=== PATIENT | female | born 1945 | race Hispanic/Latino ===

== ENCOUNTER 2017-08-27 16:15 | Emergency (ER) | payer MEDICARE, OTHER ==
--- NOTE | 2017-08-27 17:02 | C.PDOC ---
History Of Present Illness 71 y/o female presents to emergency department, accompanied by daughter, status post fall just prior to arrival. Patient reportedly missed 2 steps while walking down stairs, falling onto her right side, and striking her head. Patient c/o right facial pain with hematoma, right shoulder pain, rib pain, and right knee pain. Daughter and patient deny LOC, chest pain, SOB, new weakness, new numbness, nausea, vomiting, or other associated symptoms. - HPI Time Seen by Provider: 08/27/17 16:27 Chief Complaint (Nursing): Trauma History Per: Patient, Family (daughter) History/Exam Limitations: no limitations Injury Occurred (Timing): Just Before Arrival Location Of Injury: Right: Face, Knee, Leg, Shoulder Recent travel outside of the [place]: No Past Medical History Reviewed: Historical Data, Nursing Documentation, Vital Signs Vital Signs: Last Vital Signs Temp 97.9 F 08/27/17 19:15 Pulse 58 L 08/27/17 19:15 Resp 18 08/27/17 19:15 BP 131/76 08/27/17 19:15 Pulse Ox 99 08/27/17 19:20 - Medical History PMH: HTN Other PMH: Kidney Transplant Family History: States: Unknown Family Hx - Social History Hx Alcohol Use: No Hx Substance Use: No - Immunization History Hx Tetanus Toxoid Vaccination: No Hx Influenza Vaccination: No Hx Pneumococcal Vaccination: No Review Of Systems Except As Marked, All Systems Reviewed And Found Negative. Constitutional: Negative for: Fever, Chills ENT: Positive for: Other (right sided facial pain) Cardiovascular: Negative for: Chest Pain, Palpitations Respiratory: Negative for: Cough, Shortness of Breath, Wheezing Gastrointestinal: Negative for: Nausea, Vomiting, Abdominal Pain Musculoskeletal: Positive for: Shoulder Pain (R), Leg Pain (R), Other (Rib Pain , R) Skin: Negative for: Rash Neurological: Negative for: Weakness, Numbness, Dizziness Physical Exam - Physical Exam Appears: Non-toxic, Other (in moderate painful distress) Skin: Warm, Dry, Other ((+) 1cm laceration above the right eyebrow) Head: Normacephalic, Tenderness, Other (Right orbital ecchymosis and swelling) Eye(s): bilateral: PERRL, EOMI Ear(s): Bilateral: Normal Nose: Normal, No Epistaxis, No Deformity Oral Mucosa: Moist Tongue: Normal Appearing Lips: Normal Appearing Teeth: Normal Dentition, Dentures Throat: No Erythema, No Exudate Neck: Paracervical Tenderness, No Step Off Deformity, Supple Chest: Symmetrical, No Deformity, Tenderness (bilateral anterior 5th and 6th rib tenderness) Cardiovascular: Rhythm Regular, No Friction Rub, No Murmur Respiratory: Normal Breath Sounds, No Rales, No Rhonchi, No Wheezing Gastrointestinal/Abdominal: Bowel Sounds (active), Soft, No Tenderness, No Distention, No Guarding, No Rebound Back: Normal Inspection, No Vertebral Tenderness, No Paraspinal Tenderness Extremity: Capillary Refill (< 2 sec. ), No Deformity, Other (large area of ecchymosis, swelling, and tenderness to right medial knee) Extremity: Bilateral: Pelvis-Stable Pulses: Left Radial: Normal, Right Radial: Normal, Left Dorsalis Pedis: Normal, Right Dorsalis Pedis: Normal Neurological/Psych: Oriented x3, Normal Speech, Normal Cognition, Normal Motor, Normal Sensation Gait: Steady ED Course And Treatment ECG: Interpreted By Me, Viewed By Me ECG Rhythm: Sinus Rhythm, R BBB Rate From EC O2 Sat by Pulse Oximetry: 99 (RA) Pulse Ox Interpretation: Normal - CT Scan/US CT Head Other Rad Studies (CT/US): Read By Radiologist, Radiology Report Reviewed CT/US Interpretation: FINDINGS: HEMORRHAGE: No intracranial hemorrhage. BRAIN : No mass effect or edema. Atrophy and chronic microvascular white matter ischemic changes are noted. VENTRICLES: Unremarkable. No hydrocephalus. CALVARIUM: Unremarkable. PARANASAL SINUSES: Unremarkable as visualized. No significant inflammatory changes. MASTOID AIR CELLS: Unremarkable as visualized. No inflammatory changes. OTHER FINDINGS: None. IMPRESSION: No evidence of acute intracranial hemorrhage intracranial collection mass effect or midline shift. Atrophy and chronic microvascular white matter ischemic changes noted. No evidence of skull fracture. CT Maxillofacial Other Rad Studies (CT/US): Read By Radiologist, Radiology Report Reviewed CT/US Interpretation: FINDINGS: NASAL BONES: Unremarkable. ORBITS: Right periorbital soft tissue swelling and subcutaneous stranding seen. PARANASAL SINUSES/ MASTOIDS: Clear. MAXILLA: Unremarkable. MANDIBLE/ TEMPOROMANDIBULAR JOINTS: Unremarkable. SKULL BASE: Unremarkable. TEMPORAL BONES: Middle ears and mastoid grossly unremarkable. OTHER FINDINGS: There is round high density structure at the skin above the right hilum in the right frontal scalp may represent foreign body seen on image 111 series 3. IMPRESSION : No evidence of acute fracture. Moderate right periorbital soft tissue swelling. 2 millimeter high density structure noted at the skin in the right frontal scalp above the right orbit may represent foreign body best seen on image [address] Cervical Spine Other Rad Studies (CT/US): Read By Radiologist, Radiology Report Reviewed CT/US Interpretation: FINDINGS: VERTEBRAE: There is mild compression deformity of C3. There is complete fusion of the C3 and C4. Mild kyphosis seen at the upper cervical spine. There is mild anterior spondylolisthesis of C2 relative to C3. There is mild approximately 3 millimeter anterior spondylolisthesis of C7 relative to T1. There is a straightening of the cervical spine and mild reversal of the normal lordosis. Diffuse osteopenia is also noted. DISCS/SPINAL CANAL/NEURAL FORAMINA: Advanced degenerative disc changes. Multilevel severe narrowing of the intervertebral disc space noted at the cervical spine. PARASPINAL SOFT TISSUES: There are bilateral retropharyngeal internal carotid arteries noted. OTHER FINDINGS: None. IMPRESSION: No definite evidence of acute fracture at the cervical spine. Compression deformity and fusion of C3 and C4 noted. Anterior spondylolisthesis of C2 relative to C3. Reversal of the normal lordosis and mild kyphosis seen at the upper cervical spine of uncertain etiology. Advanced degenerative disc changes. If clinically warranted further assessment by MRI may be obtained. Progress Note: CT cervical spine, CT Head, and CT maxillofacial scans ordered. Right knee and right shoulder x-rays ordered and reviewed. EKG ordered. Treated with Tylenol 650mg PO. On re-evaluation, patient is resting and notes she is still in pain. Patient was given Tramadol. Laceration - Laceration Repair Above right eyebrow Wound Length (In cm): 1 cm Description Of Wound: Linear Wound Cleansed With: Betadine, Sterile Saline Wound Examination: Irrigated With Saline, No FB With Wound Exploration, No Tendon Injury With Wound Exploration Wound Debridement/Revision: Wound Debrided, Wound Margins Revised Wound Closure: Steri Strips (2), Skin Glue Suture Technique And Material Used: Running Wound Complexity: Simple Medical Decision Making Medical Decision Making: On re-eval, the patient reports improvement of symptoms. Lungs are CTA, heart is RRR. Abdomen is soft, non-tender and the patient is tolerating PO well. Patient has walker at home which she will use. Follow up with the medical doctor /clinic within 1-2 days. Return if worsened. Disposition - Disposition Referrals: Benedict Prather MD [Staff Provider] - Disposition: HOME/ ROUTINE Disposition Time: 19:14 Condition: FAIR Additional Instructions: Follow up with the medical doctor/clinic within 1-2 days without fail. Return if worsened. Prescriptions: Acetaminophen [Tylenol] 325 mg PO Q6 PRN #30 tab PRN Reason: Pain, Moderate (4-7) traMADol [Ultram] 50 mg PO Q6 PRN #20 tab PRN Reason: Pain Instructions: Cervical Strain (DC), Head Injury (ED), Knee Pain (ED), Rib Contusion (ED) Forms: [employer] (Azeri) - Clinical Impression Clinical Impression: Head injury, Rib contusion, Cervical strain, Knee contusion, Laceration of eyebrow - PA / [employer] / Resident Statement MD/DO has reviewed & agrees with the documentation as recorded. - Scribe Statement The provider has reviewed the documentation as recorded by the Ramon Corey All medical record entries made by the Ramon were at my direction and personally dictated by me. I have reviewed the chart and agree that the record accurately reflects my personal performance of the history, physical exam, medical decision making, and the department course for this patient. I have also personally directed, reviewed, and agree with the discharge instructions and disposition.
--- NOTE | 2017-08-27 18:10 | CT ---
PROCEDURE: CT HEAD WITHOUT CONTRAST. HISTORY: fall , head injury COMPARISON: Comparison is made to the previous study dated 10/11/2012. TECHNIQUE: Axial computed tomography images were obtained through the head/brain without intravenous contrast. Radiation dose: Total exam DLP = 863.77 mGy-cm. This CT exam was performed using one or more of the following dose reduction techniques: Automated exposure control, adjustment of the mA and/or kV according to patient size, and/or use of iterative reconstruction technique. FINDINGS: HEMORRHAGE: No intracranial hemorrhage. BRAIN: No mass effect or edema. Atrophy and chronic microvascular white matter ischemic changes are noted. VENTRICLES: Unremarkable. No hydrocephalus. CALVARIUM: Unremarkable. PARANASAL SINUSES: Unremarkable as visualized. No significant inflammatory changes. MASTOID AIR CELLS: Unremarkable as visualized. No inflammatory changes. OTHER FINDINGS: None. IMPRESSION: No evidence of acute intracranial hemorrhage intracranial collection mass effect or midline shift. Atrophy and chronic microvascular white matter ischemic changes noted. No evidence of skull fracture.
--- NOTE | 2017-08-27 18:42 | CT ---
PROCEDURE: CT MAXILLOFACIAL BONES WITHOUT CONTRAST HISTORY: fall, swelling to R eye COMPARISON: None TECHNIQUE: Contiguous axial CT images of the maxillofacial bones were obtained. Coronal and sagittal reformats were generated. Radiation dose: Total exam DLP = 720.78 mGy-cm. This CT exam was performed using one or more of the following dose reduction techniques: Automated exposure control, adjustment of the mA and/or kV according to patient size, and/or use of iterative reconstruction technique. FINDINGS: NASAL BONES: Unremarkable. ORBITS: Right periorbital soft tissue swelling and subcutaneous stranding seen. PARANASAL SINUSES/ MASTOIDS: Clear. MAXILLA: Unremarkable. MANDIBLE/ TEMPOROMANDIBULAR JOINTS: Unremarkable. SKULL BASE: Unremarkable. TEMPORAL BONES: Middle ears and mastoid grossly unremarkable. OTHER FINDINGS: There is round high density structure at the skin above the right hilum in the right frontal scalp may represent foreign body seen on image 111 series 3 IMPRESSION: No evidence of acute fracture. Moderate right periorbital soft tissue swelling. 2 millimeter high density structure noted at the skin in the right frontal scalp above the right orbit may represent foreign body best seen on image 111 series 3.
--- NOTE | 2017-08-27 18:53 | CT ---
PROCEDURE: CT Cervical Spine without contrast HISTORY: <neck injury> COMPARISON: None available. TECHNIQUE: Axial computed tomography images were obtained of the cervical spine without the use of intravenous contrast. Coronal and sagittal reformatted images were created and reviewed. Radiation dose: Total exam DLP = 577.35 mGy-cm. This CT exam was performed using one or more of the following dose reduction techniques: Automated exposure control, adjustment of the mA and/or kV according to patient size, and/or use of iterative reconstruction technique. FINDINGS: VERTEBRAE: There is mild compression deformity of C3. There is complete fusion of the C3 and C4. Mild kyphosis seen at the upper cervical spine. There is mild anterior spondylolisthesis of C2 relative to C3. There is mild approximately 3 millimeter anterior spondylolisthesis of C7 relative to T1. There is a straightening of the cervical spine and mild reversal of the normal lordosis. Diffuse osteopenia is also noted. DISCS/SPINAL CANAL/NEURAL FORAMINA: Advanced degenerative disc changes. Multilevel severe narrowing of the intervertebral disc space noted at the cervical spine. PARASPINAL SOFT TISSUES: There are bilateral retropharyngeal internal carotid arteries noted. OTHER FINDINGS: None. IMPRESSION: No definite evidence of acute fracture at the cervical spine. Compression deformity and fusion of C3 and C4 noted. Anterior spondylolisthesis of C2 relative to C3. Reversal of the normal lordosis and mild kyphosis seen at the upper cervical spine of uncertain etiology. Advanced degenerative disc changes. If clinically warranted further assessment by MRI may be obtained.
[2017-08-27 19:16] VITALS: BP 131/76; PULSE 58; RESP 18; TEMP 97.9
[2017-08-27 19:18] VITALS: O2SAT 99
--- NOTE | 2017-08-28 08:27 | RAD ---
PROCEDURE: Radiographs of the Right Shoulder HISTORY: shoulder pain, injury COMPARISON: No prior. FINDINGS: BONES: No fracture. High-riding humeral head- consistent chronic rotator cuff pathology noted. Humeral head subchondral sclerosis JOINTS: . Glenohumeral and acromioclavicular osteoarthritis. SOFT TISSUES: Normal. OTHER FINDINGS: None. IMPRESSION: No fracture or dislocation appreciated. High-riding humeral head consistent chronic rotator cuff pathology. Sclerotic and hypertrophic arthrosis -right shoulder If clinical symptoms persist, consider MRI or CT of the right shoulder
--- NOTE | 2017-08-28 08:47 | RAD ---
PROCEDURE: Right Knee Radiographs. HISTORY: knee injury, fall, swelling COMPARISON: None. FINDINGS: BONES: No fracture or dislocation. Medial femoral tibial and patellofemoral joint space narrowing. Medial tibial knee joint line spurring and medial tibial plateau subchondral sclerosis. JOINTS: osteoarthritis. JOINT EFFUSION: Mild moderate present OTHER FINDINGS: Probable ossific debris ring lateral femoral condyle. Arterial vascular calcifications. Tear subcutaneous calcifications possible phleboliths. Anterior subcutaneous edema. Medial and lateral subcutaneous edema. IMPRESSION: No fracture or dislocation. Prepatellar subcutaneous edema Osteoarthrosis. Probable degenerative ossific debris. For patellar joint effusion Atherosclerotic vascular disease
--- NOTE | 2017-08-28 09:43 | RAD ---
HISTORY: chest injury COMPARISON: 12/27/2012 FINDINGS: LUNGS: Mild diffuse increased interstitial lung markings. Nodular densities in the right hilar and infrahilar region as well as within the left hilar region may represent prominent vessels on end. Additional considerations may include small granulomas and or nodules. These appear similar in appearance to the prior study. PLEURA: No significant pleural effusion identified, no pneumothorax apparent. CARDIOVASCULAR: Normal. OSSEOUS STRUCTURES: Postsurgical changes in the spine. Prominent degenerative changes in the shoulders. VISUALIZED UPPER ABDOMEN: Normal. OTHER FINDINGS: Left axillary stent in place. IMPRESSION: Mild diffuse increased interstitial lung markings. Nodular densities in the right hilar and infrahilar region as well as within the left hilar region may represent prominent vessels on end. Additional considerations may include small granulomas and or nodules. These appear similar in appearance to the prior study.
--- NOTE | 2017-08-29 11:56 | CARD ---
APPROVED REPORT EKG Measurement Heart [id number] <Conclusion> Sinus rhythm with premature atrial complexes Right bundle branch block Abnormal ECG
== END 2017-08-27 19:59 | disposition home or self-care (01) ==
LOC: C.ER 16:15
DX: S01.111A Laceration without foreign body of right eyelid and periocular area, initial encounter (principal); S16.1XXA Strain of muscle, fascia and tendon at neck level, initial encounter; S20.211A Contusion of right front wall of thorax, initial encounter; S20.212A Contusion of left front wall of thorax, initial encounter; S80.01XA Contusion of right knee, initial encounter; W10.9XXA Fall (on) (from) unspecified stairs and steps, initial encounter

== ENCOUNTER 2017-08-30 06:40 | Inpatient (IN) | payer MEDICARE, OTHER ==
[2017-08-30 06:46] VITALS: BMI 30.2
--- NOTE | 2017-08-30 07:46 | C.PDOC ---
History Of Present Illness 71 Y/O FEMALE, S/P FALL OUT OF HER BED THIS MORNING, BROUGHT TO ER BY DAUGHTER. PT WAS ASSISTED BY FAMILY DOWN A FLIGHT OF STAIRS AND INTO HER BED AROUND 02:00 THIS MORNING. DAUGHTER STATES, SHE FOUND THE PT LYING FACE DOWN, UNCONSCIOUS, ON THE FLOOR WITH HER RIGHT ARM WAS EXTENDED BACKWARDS AROUND 04:30 TODAY. DAUGHTER NOTES PT WAS DIFFICULT TO AROUSE BUT WAS RESPONSIVE AFTER SHAKING HER. ON ARRIVAL, PT STATES SHE GOT OUT OF BED ON HER OWN TO TRY TO GO TO THE BATHROOM PRIOR TO FALL. DAUGHTER STATES PT AT BASELINE, STATUS POST FALL ON 08/27. DAUGHTER REPORTS CURRENT INJURIES WERE FROM PRIOR FALL AND DAUGHTER DENIES SEEING ANY NEW INJURIES. PT WAS AMBULATORY AT HOME PRIOR TO ARRIVAL. PT NORMALLY USES A CANE. ON ARRIVAL, PT'S MAINLY C/O DIFFUSE CHEST PAIN FROM PRIOR FALL AND C/O RIGHT SHOULDER PAIN FROM FALL THIS MORNING. DAUGHTER REPORTS SHE HAS BEEN ACTIVE IN THE HOUSE SINCE PRIOR ER VISIT. DENIES FEVER, CHILLS, NAUSEA , VOMITING. - HPI Time Seen by Provider: 08/30/17 07:32 Chief Complaint (Nursing): Chest Pain History Per: Patient History/Exam Limitations: no limitations Injury Occurred (Timing): Hours Ago: (5) Location Of Injury: Right: Shoulder, Anterior: Chest Recent travel outside of the [place]: No Additional History Per: Family (DAUGHTER) Past Medical History Reviewed: Historical Data, Nursing Documentation, Vital Signs Vital Signs: Last Vital Signs Temp 98.1 F 08/30/17 10:22 Pulse 71 08/30/17 10:22 Resp 20 08/30/17 10:22 BP 129/48 L 08/30/17 10:22 Pulse Ox 98 08/30/17 12:08 - Medical History PMH: HTN Family History: States: Unknown Family Hx - Social History Hx Alcohol Use: No Hx Substance Use: No - Immunization History Hx Tetanus Toxoid Vaccination: No Hx Influenza Vaccination: No Hx Pneumococcal Vaccination: No Review Of Systems Except As Marked, All Systems Reviewed And Found Negative. Constitutional: Negative for: Fever, Chills Cardiovascular: Negative for: Chest Pain Respiratory: Negative for: Cough, Shortness of Breath, Wheezing Gastrointestinal: Negative for: Nausea, Vomiting, Abdominal Pain Musculoskeletal: Positive for: Shoulder Pain (R), Other (CHEST WALL PAIN) Skin: Positive for: Bruising (R LOWER EXTREMITY, FACE R>L). Negative for: Rash Neurological: Negative for: Weakness, Numbness, Confusion, Headache, Dizziness Physical Exam - Physical Exam Appears: Non-toxic, No Acute Distress Skin: Warm, Dry Head: Normacephalic, No Abrasion, No Laceration, Other (OLD BRUISING TO FACE, R > L ) Eye(s): bilateral: PERRL, EOMI, right: Other (SUBCONJUNCTIVAL HEMMORHAGE) Ear(s): Bilateral: Normal Nose: Normal Oral Mucosa: Moist Neck: Normal ROM, No Midline Cervical Tenderness, No Paracervical Tenderness, No Step Off Deformity, Supple Chest: Symmetrical, Tenderness (DIFFUSE CHEST WALL TENDERNESS), Other (NO CREPITUS) Cardiovascular: Rhythm Regular Respiratory: Normal Breath Sounds (LUNGS CTA), No Accessory Muscle Use, No Rales , No Rhonchi, No Wheezing Gastrointestinal/Abdominal: Soft, No Tenderness, No Guarding, No Rebound Back: Normal Inspection, No Vertebral Tenderness Extremity: Normal ROM, Capillary Refill (< 2 SEC.), No Deformity, Other (OLD BRUISING RIGHT LOWER EXTREMITY) Neurological/Psych: Oriented x3, Normal Speech, Normal Cognition ED Course And Treatment - Laboratory Results Result Diagrams: 08/30/17 07:59 08/30/17 07:59 Interpretation Of Abnormal: BUN/CREAT WORSE COMPARED TO PRIOR ECG: Interpreted By Me ECG Interpretation: No Changes From Prior (COMPARED WITH 08/27/17) Interpretation Of ECG: SINUS RHYTHM WITH PREMATURE ATRIAL COMPLEXES. RIGHT BUNDLE BRANCH BLOCK. Rate From EC (BPM) O2 Sat by Pulse Oximetry: 98 (RA) Pulse Ox Interpretation: Normal - Radiology CXR: Interpreted by Me CXR Interpretation: Yes: No Acute Disease. No: Infiltrates - Other Rad R SHOULDER X-RAY X-Ray: Interpreted by Me Interpretation: NEGATIVE FOR FX/DISLOCATION PELVIS X-Ray: Interpreted by Me (NEG) - CT Scan/US CT CHEST Other Rad Studies (CT/US): Read By Radiologist, Radiology Report Reviewed CT/US Interpretation: FINDINGS: LUNGS: Clear lungs. Visualized airway clear. Trace fibrotic changes in the periphery bilaterally at the upper lobes. Limited bilateral basilar dependent atelectasis is appreciated. MEDIASTINUM: Mildly atherosclerotic thoracic aorta. No aneurysm. Cardiomegaly with trace pericardial effusion identified inferiorly. Main pulmonary artery unremarkable. No vascular congestion. No lymphadenopathy. PLEURA: No pleural fluid. No pneumothorax. BONES: No fracture. No destructive lesion. UPPER ABDOMEN: There is a hypodense lesion identified in the left lobe liver which appears irregular and peripheral margins and may even be infiltrative laterally toward the left measuring a minimum of 3.6 cm. The largest component of this lesion appears to be cystic measuring only 3-4 Hounsfield units. Given the lack of prior imaging and its irregular peripheral margins follow-up CT or MRI without contrast is advised for better characterization. OTHER FINDINGS: An epidural stimulator is appreciated terminating at the mid thoracic spine and note is also made incidentally of a a wall stent at the left axilla/proximal upper extremity. IMPRESSION: 1. No fracture, pleural effusion, pneumothorax or per definite pulmonary contusion is appreciable. 2. Trace pericardial effusion. Moderate cardiomegaly noted. 3. Limited bilateral basilar dependent atelectasis. 4. Incidental note is made of a 3.6 cm irregular hyperdensity at the left lobe liver with cystic components. This is unlikely to be posttraumatic. Follow-up abdomen pelvis CT or abdomen MRI without contrast is advised for greater characterization of this finding when feasible. 5. Other lesser findings as discussed above. CT HEAD Other Rad Studies (CT/US): Read By Radiologist, Radiology Report Reviewed CT/US Interpretation: IMPRESSION: No interval intracranial hemorrhage or mass effect. No interval calvarial fracture. Atrophy or chronic microvascular ischemic changes -similar-appearing. Progress - Re-Evaluation Re-evaluation Note: 08/30/17 08:06 EKG, CXR, BLOODWORK. PELVIS, R SHOULDER X-RAYS ORDERED. LIDODERM PATCH ORDERED. 08/30/17 10:50 APPEARS COMFORTABLE NAD. PENDING CALLBACK PMD 08/30/17 11:15 NO RESPONSE PMD. 2ND CALL TO SERVICE 08/30/17 12:06 NO RESPONSE PMD SINCE 1050 D/W MED GLEASON OPERATOR DR PAYNE WILL ADMIT - Data Reviewed Data Reviewed: Lab, Diagnostic imaging, EKG, Old records Disposition Counseled Patient/Family Regarding: Studies Performed, Diagnosis - Disposition Disposition: HOSPITALIZED Disposition Time: 12:07 Condition: STABLE Forms: [facility] ([place]) - POA Present On Arrival: Falls Or Trauma - Clinical Impression Clinical Impression: Chest pain, Multiple contusions, Renal insufficiency - Scribe Statement The provider has reviewed the documentation as recorded by the Scribe SM All medical record entries made by the Scribe were at my direction and personally dictated by me. I have reviewed the chart and agree that the record accurately reflects my personal performance of the history, physical exam, medical decision making, and the department course for this patient. I have also personally directed, reviewed, and agree with the discharge instructions and disposition. Decision To Admit - Pt Status Changed To: Hospital Disposition Of: Observation - . Bed Request Type: Telemetry Admitting Physician: Manuel Payne Jr. Patient Diagnosis: Chest pain, Multiple contusions, Renal insufficiency
[2017-08-30] MEDS ORDERED: Lidocaine 5% Patch TD STA (07:52)
[2017-08-30] MEDS ORDERED: Lidocaine 5% Patch TD ONE (08:02)
[2017-08-30 08:05] LABS: BASO # 0.1 K/uL (0.0-0.2); BASO % 0.8 % (0.0-2.0); EOS % 0.2 % (0.0-4.0); HEMATOCRIT 28.8 % (34.0-47.0); LYMPH # 1.2 K/uL (1.0-4.3); LYMPH % 11.7 % (20.0-40.0); MEAN CELL VOLUME 81.8 fL (81.0-99.0); MEAN CORPUSCULAR HEMOGLOBIN 27.4 pg (27.0-31.0); MEAN CORPUSCULAR HGB CONC 33.4 g/dL (33.0-37.0); MONO % 10.2 % (0.0-10.0); NRBC % 0.1 % (0.0-2.0); RED CELL DISTRIBUTION WIDTH 14.5 % (11.5-14.5)
[2017-08-30 08:06] LABS: WHITE BLOOD COUNT 10.2 K/uL (4.8-10.8)
[2017-08-30 08:14] LABS: INR 1.1
[2017-08-30 08:15] LABS: POTASSIUM 3.7 mmol/L (3.6-5.2)
[2017-08-30 08:17] LABS: BILIRUBIN,TOTAL 0.7 mg/dL (0.2-1.3)
[2017-08-30 08:18] LABS: ALB/GLOB RATIO 1.2 (1.0-2.1); CALCIUM 8.5 mg/dl (8.6-10.4); TOTAL PROTEIN 6.2 g/dL (6.3-8.3)
--- NOTE | 2017-08-30 08:24 | RAD ---
PROCEDURE: Radiographs of the Right Shoulder HISTORY: TRAUMA COMPARISON: No prior. FINDINGS: BONES: . No fracture. Superior acromial cysts hypertrophy. High-riding humeral head -chronic rotator cuff pathology inferred JOINTS: Glenohumeral and acromioclavicular and cervical apophyseal osteoarthritis. SOFT TISSUES: Normal. OTHER FINDINGS: Neuro stimulator electrodes project over mid-inferior thoracic spine IMPRESSION: No fracture or dislocation. . Arthrosis.
--- NOTE | 2017-08-30 08:27 | RAD ---
PROCEDURE: Radiographs of the pelvis. HISTORY: PAIN COMPARISON: None. FINDINGS: BONES: Pelvic Bones: Unremarkable. Hips: Bilateral arthrosis JOINTS: Sacroiliac Joints: Unremarkable. Pubic Symphysis: Unremarkable. OTHER FINDINGS: Status post lumbar laminectomy with hardware. Neurostimulator battery pack and leads. Large body habitus IMPRESSION: No fracture or dislocation. Lumbar laminectomy with hardware fusion. - Bilateral hip arthrosis
[2017-08-30 09:01] LABS: TROPONIN I 0.053 ng/mL (0.00-0.120)
--- NOTE | 2017-08-30 09:41 | RAD ---
PROCEDURE: CHEST RADIOGRAPH, 1 VIEW HISTORY: TRAUMA COMPARISON: 08/27/2017 FINDINGS: LUNGS: No consolidation. PLEURA: No pneumothorax or pleural fluid seen. CARDIOVASCULAR: Cardiomegaly. Aortic knob atherosclerotic vascular calcification. Central pulmonary vasculature possibly minimally congested -yet similar OSSEOUS STRUCTURES: Bilateral shoulder arthrosis, generalized osteopenia. No gross fracture appreciated VISUALIZED UPPER ABDOMEN: Normal. OTHER FINDINGS: Left axillary vascular stent. Mid thoracic level neurostimulator electrodes. Similar mammillated right hemidiaphragm. IMPRESSION: No gross fracture or dislocation appreciated. Generalized osteopenia . Bilateral shoulder arthrosis Cardiomegaly. Atherosclerotic arterial vascular disease. Borderline pulmonary central venous congestion - similar
--- NOTE | 2017-08-30 09:58 | CT ---
PROCEDURE: CT HEAD WITHOUT CONTRAST. HISTORY: REPEAT trauma COMPARISON: 08/27/2017 TECHNIQUE: Axial computed tomography images were obtained through the head/brain without intravenous contrast. Radiation dose: Total exam DLP = 983 mGy-cm. This CT exam was performed using one or more of the following dose reduction techniques: Automated exposure control, adjustment of the mA and/or kV according to patient size, and/or use of iterative reconstruction technique. FINDINGS: HEMORRHAGE: No intracranial hemorrhage. BRAIN: No mass effect or edema. . Atrophy or chronic microvascular ischemic changes -similar-appearing. VENTRICLES: Unremarkable. No hydrocephalus. CALVARIUM: Unremarkable. PARANASAL SINUSES: Unremarkable as visualized. No significant inflammatory changes. MASTOID AIR CELLS: Unremarkable as visualized. No inflammatory changes. OTHER FINDINGS: Vertebrobasilar arterial atherosclerotic vascular calcifications . IMPRESSION: No interval intracranial hemorrhage or mass effect. No interval calvarial fracture. Atrophy or chronic microvascular ischemic changes -similar-appearing.
[2017-08-30] MEDS ORDERED: Sodium Chloride 0.9% 500 ML IV ONE (10:06)
[2017-08-30] MEDS ORDERED: Sodium Chloride 0.9% 1,000 ML ONE (10:10)
--- NOTE | 2017-08-30 10:16 | CT ---
PROCEDURE: CT Chest without contrast HISTORY: trauma COMPARISON: None. TECHNIQUE: Contiguous axial images were obtained through the chest without intravenous contrast enhancement. Sagittal and coronal reconstructions were performed. Radiation dose (DLP): 766.57 mGy-cm. This CT exam was performed using one or more of the following dose reduction techniques: Automated exposure control, adjustment of the mA and/or kV according to patient size, and/or use of iterative reconstruction technique. FINDINGS: LUNGS: Clear lungs. Visualized airway clear. Trace fibrotic changes in the periphery bilaterally at the upper lobes. Limited bilateral basilar dependent atelectasis is appreciated. MEDIASTINUM: Mildly atherosclerotic thoracic aorta. No aneurysm. Cardiomegaly with trace pericardial effusion identified inferiorly. Main pulmonary artery unremarkable. No vascular congestion. No lymphadenopathy. PLEURA: No pleural fluid. No pneumothorax. BONES: No fracture. No destructive lesion. UPPER ABDOMEN: There is a hypodense lesion identified in the left lobe liver which appears irregular and peripheral margins and may even be infiltrative laterally toward the left measuring a minimum of 3.6 cm. The largest component of this lesion appears to be cystic measuring only 3-4 Hounsfield units. Given the lack of prior imaging and its irregular peripheral margins follow-up CT or MRI without contrast is advised for better characterization. OTHER FINDINGS: An epidural stimulator is appreciated terminating at the mid thoracic spine and note is also made incidentally of a a wall stent at the left axilla/proximal upper extremity. IMPRESSION: 1. No fracture, pleural effusion, pneumothorax or per definite pulmonary contusion is appreciable. 2. Trace pericardial effusion. Moderate cardiomegaly noted. 3. Limited bilateral basilar dependent atelectasis. 4. Incidental note is made of a 3.6 cm irregular hyperdensity at the left lobe liver with cystic components. This is unlikely to be posttraumatic. Follow-up abdomen pelvis CT or abdomen MRI without contrast is advised for greater characterization of this finding when feasible. 5. Other lesser findings as discussed above.
[2017-08-30 11:41] LABS: RBC URINE 8 /hpf (0-3); URINE BILIRUBIN NEGATIVE (NEGATIVE); URINE BLOOD 1+ (NEGATIVE); URINE COLOR Yellow (YELLOW); URINE GLUCOSE (UA) NORMAL (Normal); URINE KETONE NEGATIVE (NEGATIVE); URINE LEUKOCYTE ESTERASE 3+ Leu/uL (Negative); URINE PROTEIN 1+ mg/dL (NEGATIVE); URINE UROBILINOGEN NORMAL mg/dL (0.2-1.0); WBC URINE 12 /hpf (0-5)
--- NOTE | 2017-08-30 12:16 | CARD ---
APPROVED REPORT EKG Measurement Heart [id number] CT [id number] <Conclusion> Sinus rhythm with premature atrial complexes Right bundle branch block Abnormal ECG
--- NOTE | 2017-08-30 13:30 | CP.PCM.HP ---
History of Present Illness - History of Present Illness History of Present Illness: CC: Fall, Chest pain, HPI: Patient is a 71 year old female with a history of HTN, hyperlipidemia, Kidney transplant is here because she was found on the floor by her daughter whom she lives. Patient's daughter says the patient was unconscious and was unable to arouse patient for about 30 units. Patient does not remember why she was on the floor not does she remember falling. She says she was been having right sided chest pain, shoulder pain, and right lower extremity pain and weakness since falling 3 days ago. She has extensive bruising on the right side of her face and legs. She denies any changes in vision, hearing, feeling lightheaded, nausea, vomiting, diarrhea, difficulty breathing, wheezing, palpitations, anxiety, depression, numbness tingling, or memory loss. She was seen in the ED about 3 days ago for a fall, they did x:rays of knee, shoulder, head and cervical spine CT which were negative. PMH: see above PSH: left kidney transplant, 2 lumbar laminectomy PFH: Denies family history of heart disease, Cancer, DM, or HTN SH: Lives with daughter, ambulates without assistant to the dean, denies smoking, etoh use , or drug use PMH: Dr. Velasco Allergies: Amoxicillin Present on Admission - Present on Admission Any Indicators Present on Admission: Yes History of DVT/PE: No History of Uncontrolled Diabetes: No Urinary Catheter: No Decubitus Ulcer Present: No History Surgical Site Infection Following: Orthopedic Procedures (lumbar spine) Review of Systems - Review of Systems All systems: reviewed and no additional remarkable complaints except - Constitutional Constitutional: absent: Chills, Fever - EENT Eyes: absent: Change in Vision Ears: absent: Dizziness - Cardiovascular Cardiovascular: Chest Pain, Syncope. absent: Dyspnea, Palpitations, Radiating Pain - Respiratory Respiratory: absent: Cough, Dyspnea, Wheezing - Gastrointestinal Gastrointestinal: absent: Abdominal Pain, Constipation, Diarrhea, Nausea, Vomiting - Genitourinary Genitourinary: absent: Dysuria - Musculoskeletal Musculoskeletal: Limited Range of Motion, Muscle Weakness, Myalgias. absent: Back Pain, Joint Swelling, Numbness, Tingling - Neurological Neurological: Syncope, Weakness. absent: Convulsions, Dizziness, Numbness, Frequent Falls, Headaches, Memory Loss, Paresthesias, Sensory Deficit - Psychiatric Psychiatric: absent: Anxiety - Endocrine Endocrine: absent: Fatigue, Palpitations Past Patient History - Infectious Disease Hx of Infectious Diseases: None - Past Social History Smoking Status: Never Smoked - CARDIAC Hx Hypertension: Yes - RENAL Other/Comment: Rt. kidney transplant, - PSYCHIATRIC Hx Substance Use: No - SURGICAL HISTORY Hx Surgeries: Yes Other/Comment: Rt. kidney transplant - ANESTHESIA Hx Anesthesia: No Hx Anesthesia Reactions: No Meds Allergies/Adverse Reactions: Allergies Allergy/AdvReac Type Severity Reaction Status Date / Time amoxicillin AdvReac Severe Verified 08/30/17 06:58 Physical Exam - Constitutional Appears: Non-toxic, No Acute Distress - Eye Exam Eye Exam: Normal appearance, PERRL. absent: Nystagmus, Scleral icterus Pupil Exam: NORMAL ACCOMODATION - ENT Exam ENT Exam: Mucous Membranes Moist, Normal Exam, Normal External Ear Exam, Normal Oropharynx, TM's Normal Bilaterally - Neck Exam Neck exam: Positive for: Normal Inspection - Respiratory Exam Respiratory Exam: Clear to Auscultation Bilateral. absent: Rales, Rhonchi, Wheezes - Cardiovascular Exam Cardiovascular Exam: REGULAR RHYTHM, RRR, +S1, +S2. absent: Gallop, Rubs - GI/Abdominal Exam GI & Abdominal Exam: Normal Bowel Sounds, Soft. absent: Guarding, Rebound, Tenderness - Extremities Exam Extremities exam: Positive for: pedal edema, tenderness. Negative for: normal inspection - Back Exam Back exam: absent: CVA tenderness (L), CVA tenderness (R) - Neurological Exam Neurological exam: Alert, Oriented x3 Additional comments: weaker on the right side both upper and lower extremity - Psychiatric Exam Psychiatric exam: Normal Affect, Normal Mood - Skin Skin Exam: Pallor Additional comments: Bruising on the left and face Results - Vital Signs Recent Vital Signs: Last Vital Signs Temp 98.3 F 08/30/17 12:41 Pulse 69 08/30/17 12:41 Resp 20 08/30/17 12:41 BP 125/62 08/30/17 12:41 Pulse Ox 100 08/30/17 12:41 - Labs Result Diagrams: 08/30/17 07:59 08/30/17 07:59 Labs: Laboratory Results - last 24 hr 08/30/17 08/30/17 08/30/17 07:59 07:59 07:59 WBC 10.2 D RBC 3.51 L Hgb 9.6 L D Hct 28.8 L MCV 81.8 MCH 27.4 MCHC 33.4 RDW 14.5 Plt Count 148 MPV 8.0 Neut % (Auto) 77.1 H Lymph % (Auto) 11.7 L [place] % (Auto) 10.2 H Eos % (Auto) 0.2 Baso % (Auto) 0.8 Neut # 7.9 H Lymph # 1.2 [place] # 1.0 H Eos # 0.0 Baso # 0.1 PT 11.9 INR 1.1 APTT 23 Sodium 132 Potassium 3.7 Chloride 100 Carbon Dioxide 23 Anion Gap 14 BUN 46 H Creatinine 1.8 H Est GFR ( Amer) 33 Est GFR (Non-Af Amer) 28 Random Glucose 88 Calcium 8.5 L Total Bilirubin 0.7 AST 33 ALT 31 Alkaline Phosphatase 35 L Troponin I 0.0530 Total Protein 6.2 L Albumin 3.4 L Globulin 2.8 Albumin/Globulin Ratio 1.2 Urine Color Urine Clarity Urine pH Ur Specific [place] Urine Protein Urine Glucose (UA) Urine Ketones Urine Blood Urine Nitrate Urine Bilirubin Urine Urobilinogen Ur Leukocyte Esterase Urine WBC (Auto) Urine RBC (Auto) Ur Squamous Epith Cells Blood Type Antibody Screen 08/30/17 08/30/17 07:59 11:22 WBC RBC Hgb Hct MCV MCH MCHC RDW Plt Count MPV Neut % (Auto) Lymph % (Auto) [place] % (Auto) Eos % (Auto) Baso % (Auto) Neut # Lymph # [place] # Eos # Baso # PT INR APTT Sodium Potassium Chloride Carbon Dioxide Anion Gap BUN Creatinine Est GFR ( Amer) Est GFR (Non-Af Amer) Random Glucose Calcium Total Bilirubin AST ALT Alkaline Phosphatase Troponin I Total Protein Albumin Globulin Albumin/Globulin Ratio Urine Color Yellow Urine Clarity Clear Urine pH 5.0 Ur Specific [place] 1.014 Urine Protein 1+ H Urine Glucose (UA) Normal Urine Ketones Negative Urine Blood 1+ H Urine Nitrate Negative Urine Bilirubin Negative Urine Urobilinogen Normal Ur Leukocyte Esterase 3+ H Urine WBC (Auto) 12 H Urine RBC (Auto) 8 H Ur Squamous Epith Cells 1 Blood Type A POSITIVE Antibody Screen Negative Assessment & Plan (1) Syncope and collapse Assessment and Plan: Patient is admitted to tele/obs Labs in the ED and EKG were reviewed Will do cardiac enzymes Q8H x2, first set are negative, monitor on tele, echo, and carotid doppler physical and occupational therapy Fall precautions follow up morning cbc, cmp, mag, phos, tsh/free t4, hgb a1c, lipid panel. Follow up orthostatic vital signs. Follow up CPK Consider cardiology or Neurology consult. Status: Acute Priority: High (2) Multiple contusions Assessment and Plan: Lidoderm patch, Tylenol and Morphine Prn Physical and occupational therapy, patient need to [facility] after discharge. Status: Acute Priority: High (3) Anemia Assessment and Plan: Hbg is 9.2, which is well below her baseline. Will do anemia work up, Rectic count, iron studies, B12, and folate, and also stool ob x3. Status: Acute Priority: High (4) UTI (urinary tract infection) Assessment and Plan: UA showed +3 LE as wells aso RBCs and WBCs, started Cipro 200mg IV q12h due to renal insufficiency and Amoxicillin allergy. Follow up blood and urine culture. Status: Acute Priority: High (5) HTN (hypertension) Assessment and Plan: Norvasc 5mg Lopressor 50mg bid Status: Chronic Priority: Medium (6) Hyperlipidemia Assessment and Plan: Statin, follow up lipid panel also continue Lovaza Status: Chronic Priority: Medium (7) History of kidney transplant Assessment and Plan: Patient is on several medication such as cylcosporine 75mg and 50mg HS, Cellcept 500mg bid, prednisone 5mg, and also Bactrim DS once a day for prophylaxis. Consulted patient's fast food team member Dr. Bai Status: Chronic (8) Prophylactic measure Assessment and Plan: Will hold VTE due to anemia and recent head trauma , and also old SCD due to lower extremity injury Pepcid 20mg daily. Status: Acute Priority: Medium
[2017-08-30] MEDS ORDERED: Pantoprazole 20 mg EC Tab PO SCH (15:45)
--- NOTE | 2017-08-30 15:49 | CARD ---
APPROVED REPORT EXAM: Two-dimensional and M-mode echocardiogram with Doppler and color Doppler. Other Information Quality : GoodRhythm : NSR INDICATION Chest Pain Syncope RISK FACTORS Hypertension 2D DIMENSIONS IVSd0.9 (0.7-1.1cm)LVDd4.6 (3.9-5.9cm) LVOT Diameter1.9 (1.8-2.4cm)PWd1.1 (0.7-1.1cm) LVDs2.6 (2.5-4.0cm)FS (%) 44.4 % LVEF (%)75.7 (>50%) M-Mode DIMENSIONS Left Atrium (MM)3.61 (2.5-4.0cm)Aortic Root3.09 (2.2-3.7cm) Aortic Cusp Exc.1.09 (1.5-2.0cm) Aortic Valve AoV Peak Gynkhkkp510.8cm/sAoV VTI59.8cmAO Peak GR.33mmHg LVOT Peak Xpuacqsd919.9cm/sLVOT VTI28.98cmAO Mean GR.20mmHg ORION (VMAX)1.61md8SAZ (VTI)1.44cm2 Mitral Valve MV E Vmwdmxzv791.9cm/sMV A Razpgikx502.0cm/sE/A ratio1.0 TDI E/Lateral E'0.0E/Medial E'0.0 Tricuspid Valve TR Peak Slnhitpy044zr/sTR Peak Gr.27ltVhZPQQ55tdKp LEFT VENTRICLE The left ventricle is normal size. There is normal left ventricular wall thickness. The left ventricular function is normal. The left ventricular ejection fraction is within the normal range. There is normal LV segmental wall motion. The left ventricular diastolic function is normal. ATRIA The right atrium size is normal. AORTIC VALVE There is mild valvular aortic stenosis. MITRAL VALVE There is mild mitral valve stenosis. Mitral regurgitation is trace. TRICUSPID VALVE There is mild tricuspid regurgitation. <Conclusion> Normal LV systolic function. Normal chamber size. Mild . Mild MS. Trace MR. Mild TR.
[2017-08-30] MEDS: CYCLOSPORINE, MODIFIED 25 MG CAP PO SCH ×2 (17:03→21:33)
[2017-08-30] MEDS: Tmp-Smz 400 mg-80 mg SS Tab PO SCH (17:06)
[2017-08-30 17:14] LABS: IRON 13 ug/dL (37-170)
[2017-08-30] MEDS: Ciprofloxacin 200mg/100ml D5W 100 ML IVPB SCH (17:39)
[2017-08-30] MEDS: Omega-3-Acid Ethyl Esters 1 GM Cap PO SCH (17:46)
[2017-08-30] MEDS: Metoprolol Succinate 50 mg XL Tab PO SCH (17:46)
--- NOTE | 2017-08-30 22:36 | CP.PCM.CON ---
History of Present Illness - History of Present Illness History of Present Illness: Patient admitted with syncope and LOC ECHO: Normal carotids: Pending CC: Fall, Chest pain, HPI: Patient is a 71 year old female with a history of HTN, hyperlipidemia, Kidney transplant is here because she was found on the floor by her daughter whom she lives. Patient's daughter says the patient was unconscious and was unable to arouse patient for about 30 units. Patient does not remember why she was on the floor not does she remember falling. She says she was been having right sided chest pain, shoulder pain, and right lower extremity pain and weakness since falling 3 days ago. She has extensive bruising on the right side of her face and legs. She denies any changes in vision, hearing, feeling lightheaded, nausea, vomiting, diarrhea, difficulty breathing, wheezing, palpitations, anxiety, depression, numbness tingling, or memory loss. She was seen in the ED about 3 days ago for a fall, they did xrays of knee, shoulder, head and cervical spine CT which were negative. 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 Velasco Allergies: Amoxicillin Review of Systems - Review of Systems All systems: reviewed and no additional remarkable complaints except - Constitutional Constitutional: absent: Chills, Fever - EENT Eyes: absent: Change in Vision Ears: absent: Dizziness - Cardiovascular Cardiovascular: Chest Pain, Syncope. absent: Dyspnea, Palpitations, Radiating Pain - Respiratory Respiratory: absent: Cough, Dyspnea, Wheezing - Gastrointestinal Gastrointestinal: absent: Abdominal Pain, Constipation, Diarrhea, Nausea, Vomiting - Genitourinary Genitourinary: absent: Dysuria - Musculoskeletal Musculoskeletal: Limited Range of Motion, Muscle Weakness, Myalgias. absent: Back Pain, Joint Swelling, Numbness, Tingling - Neurological Neurological: Syncope, Weakness. absent: Convulsions, Dizziness, Numbness, Frequent Falls, Headaches, Memory Loss, Paresthesias, Sensory Deficit - Psychiatric Psychiatric: absent: Anxiety - Endocrine Endocrine: absent: Fatigue, Palpitations Physical Exam - Constitutional Appears: Non-toxic, No Acute Distress - Eye Exam Eye Exam: Normal appearance, PERRL. absent: Nystagmus, Scleral icterus Pupil Exam: NORMAL ACCOMODATION - ENT Exam ENT Exam: Mucous Membranes Moist, Normal Exam, Normal External Ear Exam, Normal Oropharynx, TM's Normal Bilaterally - Neck Exam Neck exam: Positive for: Normal Inspection - Respiratory Exam Respiratory Exam: Clear to Auscultation Bilateral. absent: Rales, Rhonchi, Wheezes - Cardiovascular Exam Cardiovascular Exam: REGULAR RHYTHM, RRR, +S1, +S2. absent: Gallop, Rubs - GI/Abdominal Exam GI & Abdominal Exam: Normal Bowel Sounds, Soft. absent: Guarding, Rebound, Tenderness - Extremities Exam Extremities exam: Positive for: pedal edema, tenderness. Negative for: normal inspection - Back Exam Back exam: absent: CVA tenderness (L), CVA tenderness (R) - Neurological Exam Neurological exam: Alert, Oriented x3 Additional comments: weaker on the right side both upper and lower extremity - Psychiatric Exam Psychiatric exam: Normal Affect, Normal Mood - Skin Skin Exam: Pallor Additional comments: Bruising on the left and face Past Patient History - Infectious Disease Hx of Infectious Diseases: None - Past Social History Smoking Status: Never Smoked - CARDIAC Hx Hypertension: Yes - RENAL Other/Comment: Rt. kidney transplant, - MUSCULOSKELETAL/RHEUMATOLOGICAL Hx Falls: Yes (Last Sunday) - PSYCHIATRIC Hx Substance Use: No - SURGICAL HISTORY Hx Surgeries: Yes Other/Comment: Rt. kidney transplant - ANESTHESIA Hx Anesthesia: No Hx Anesthesia Reactions: No Meds Allergies/Adverse Reactions: Allergies Allergy/AdvReac Type Severity Reaction Status Date / Time amoxicillin AdvReac Severe Verified 08/30/17 06:58 - Medications Medications: Current Medications Acetaminophen (Tylenol 325mg Tab) 650 mg PO Q6 PRN PRN Reason: Pain, moderate (4-7) Amlodipine Besylate (Norvasc) 5 mg PO DAILY [facility] Cyclosporine (Cyclosporine) 50 mg PO HS [facility] Last Admin: 08/30/17 21:33 Dose: 50 mg Cyclosporine (Cyclosporine) 75 mg PO DAILY [facility] Last Admin: 08/30/17 17:03 Dose: Not Given Famotidine (Pepcid) 20 mg PO DAILY [facility] Last Admin: 08/30/17 17:49 Dose: 20 mg Ciprofloxacin (Cipro 200mg/100ml D5w) 100 mls @ 67 mls/hr IVPB Q12H [facility] Last Admin: 08/30/17 17:39 Dose: 67 mls/hr Lidocaine (Lidoderm) 1 ea TD DAILY [facility] Metoprolol Succinate (Toprol Xl) 50 mg PO BID [facility] Last Admin: 08/30/17 17:46 Dose: 50 mg Morphine Sulfate (Morphine) 1 mg IVP Q4H PRN PRN Reason: Pain, severe (8-10) Last Admin: 08/30/17 17:35 Dose: 1 mg Mycophenolate Mofetil (Cellcept) 500 mg PO BID [facility] Last Admin: 08/30/17 17:45 Dose: 500 mg [id number] Ethyl Esters (Lovaza) 1 gm PO BID [facility] Last Admin: 08/30/17 17:46 Dose: 1 gm Prednisone (Prednisone Tab) 5 mg PO DAILY [facility] Last Admin: 08/30/17 17:02 Dose: Not Given Rosuvastatin Calcium (Crestor) 20 mg PO HS [facility] Last Admin: 08/30/17 21:32 Dose: Not Given Trimethoprim/Sulfamethoxazole (Bactrim Ss Tab) 1 tab PO DAILY [facility] Last Admin: 08/30/17 17:06 Dose: Not Given Results - Vital Signs Recent Vital Signs: Last Vital Signs Temp 98.4 F 08/30/17 15:45 Pulse 69 08/30/17 15:45 Resp 20 08/30/17 15:45 BP 141/63 08/30/17 15:45 Pulse Ox 99 08/30/17 15:45 - Labs Result Diagrams: 09/01/17 07:18 09/01/17 07:18 Labs: Laboratory Results - last 24 hr 08/30/17 08/30/17 08/30/17 07:59 07:59 07:59 WBC 10.2 D RBC 3.51 L Hgb 9.6 L D Hct 28.8 L MCV 81.8 MCH 27.4 MCHC 33.4 RDW 14.5 Plt Count 148 MPV 8.0 Neut % (Auto) 77.1 H Lymph % (Auto) 11.7 L [place] % (Auto) 10.2 H Eos % (Auto) 0.2 Baso % (Auto) 0.8 Neut # 7.9 H Lymph # 1.2 [place] # 1.0 H Eos # 0.0 Baso # 0.1 PT 11.9 INR 1.1 APTT 23 Sodium 132 Potassium 3.7 Chloride 100 Carbon Dioxide 23 Anion Gap 14 BUN 46 H Creatinine 1.8 H Est GFR ( Amer) 33 Est GFR (Non-Af Amer) 28 Random Glucose 88 Calcium 8.5 L Iron TIBC % Saturation Total Bilirubin 0.7 AST 33 ALT 31 Alkaline Phosphatase 35 L Total Creatine Kinase Troponin I 0.0530 Total Protein 6.2 L Albumin 3.4 L Globulin 2.8 Albumin/Globulin Ratio 1.2 Urine Color Urine Clarity Urine pH Ur Specific [place] Urine Protein Urine Glucose (UA) Urine Ketones Urine Blood Urine Nitrate Urine Bilirubin Urine Urobilinogen Ur Leukocyte Esterase Urine WBC (Auto) Urine RBC (Auto) Ur Squamous Epith Cells Blood Type Antibody Screen 08/30/17 08/30/17 08/30/17 07:59 11:22 16:58 WBC RBC Hgb Hct MCV MCH MCHC RDW Plt Count MPV Neut % (Auto) Lymph % (Auto) [place] % (Auto) Eos % (Auto) Baso % (Auto) Neut # Lymph # [place] # Eos # Baso # PT INR APTT Sodium Potassium Chloride Carbon Dioxide Anion Gap BUN Creatinine Est GFR ( Amer) Est GFR (Non-Af Amer) Random Glucose Calcium Iron TIBC % Saturation Total Bilirubin AST ALT Alkaline Phosphatase Total Creatine Kinase Troponin I 0.0650 Total Protein Albumin Globulin Albumin/Globulin Ratio Urine Color Yellow Urine Clarity Clear Urine pH 5.0 Ur Specific [place] 1.014 Urine Protein 1+ H Urine Glucose (UA) Normal Urine Ketones Negative Urine Blood 1+ H Urine Nitrate Negative Urine Bilirubin Negative Urine Urobilinogen Normal Ur Leukocyte Esterase 3+ H Urine WBC (Auto) 12 H Urine RBC (Auto) 8 H Ur Squamous Epith Cells 1 Blood Type A POSITIVE Antibody Screen Negative 08/30/17 08/30/17 16:58 16:58 WBC RBC Hgb Hct MCV MCH MCHC RDW Plt Count MPV Neut % (Auto) Lymph % (Auto) [place] % (Auto) Eos % (Auto) Baso % (Auto) Neut # Lymph # [place] # Eos # Baso # PT INR APTT Sodium Potassium Chloride Carbon Dioxide Anion Gap BUN Creatinine Est GFR ( Amer) Est GFR (Non-Af Amer) Random Glucose Calcium Iron 13 L TIBC 236 L % Saturation 5 L Total Bilirubin AST ALT Alkaline Phosphatase Total Creatine Kinase 586 H Troponin I Total Protein Albumin Globulin Albumin/Globulin Ratio Urine Color Urine Clarity Urine pH Ur Specific [place] Urine Protein Urine Glucose (UA) Urine Ketones Urine Blood Urine Nitrate Urine Bilirubin Urine Urobilinogen Ur Leukocyte Esterase Urine WBC (Auto) Urine RBC (Auto) Ur Squamous Epith Cells Blood Type Antibody Screen Assessment & Plan - Assessment and Plan (Free Text) Assessment: (1) Syncope and collapse Assessment and Plan: Patient with altered mental status for 30 minutes, unlikely cardiac ECHO: Normal EF Carotids pending Trop x 2 negative (2) Multiple contusions Assessment and Plan: Lidoderm patch, Tylenol and Morphine Prn Physical and occupational therapy, patient need to [facility] after discharge. Status: Acute Priority: High (3) Anemia Assessment and Plan: Hbg is 9.2, which is well below her baseline. Will do anemia work up, Rectic count, iron studies, B12, and folate, and also stool ob x3. Status: Acute Priority: High (4) UTI (urinary tract infection) Assessment and Plan: UA showed +3 LE as wells aso RBCs and WBCs, started Cipro 200mg IV q12h due to renal insufficiency and Amoxicillin allergy. Follow up blood and urine culture. Status: Acute Priority: High (5) HTN (hypertension) Assessment and Plan: Norvasc 5mg Lopressor 50mg bid Status: Chronic Priority: Medium (6) Hyperlipidemia Assessment and Plan: Statin, follow up lipid panel also continue Lovaza Status: Chronic Priority: Medium (7) History of kidney transplant Assessment and Plan: Patient is on several medication such as cylcosporine 75mg and 50mg HS, Cellcept 500mg bid, prednisone 5mg, and also Bactrim DS once a day for prophylaxis. Consulted patient's tower truck driver Dr. aBi Status: Chronic (8) Prophylactic measure Assessment and Plan: Will hold VTE due to anemia and recent head trauma , and also old SCD due to lower extremity injury Pepcid 20mg daily. Status: Acute Priority: Medium
[2017-08-31] MEDS: Ciprofloxacin 200mg/100ml D5W 100 ML IVPB SCH ×2 (02:51→13:17)
--- NOTE | 2017-08-31 07:00 | CP.PCM.PN ---
Subjective - Date & Time of Evaluation Date of Evaluation: 08/31/17 Time of Evaluation: 07:10 - Subjective Subjective: PGY-[address] Payne Patient seen and examined at bedside. Patient states that she feels a bit better than yesterday. Patient complains of chest wall tenderness that exacerbates when she breathes. This causes her to avoid deep inspiration, and as a result, the patient feels a bit short of breath. Patient denies fever, chills, abdominal pain, dysuria. Objective - Vital Signs/Intake and Output Vital Signs (last 24 hours): Temp Pulse Resp BP Pulse Ox 98.4 F 58 L 20 130/68 98 08/30/17 23:02 08/30/17 23:02 08/30/17 23:02 08/30/17 23:02 08/30/17 23:02 Intake and Output: 08/31/17 08/31/17 06:59 18:59 Intake Total 220 Balance 220 - Medications Medications: Current Medications Acetaminophen (Tylenol 325mg Tab) 650 mg PO Q6 PRN PRN Reason: Pain, moderate (4-7) Amlodipine Besylate (Norvasc) 5 mg PO DAILY [facility] Cyclosporine (Cyclosporine) 50 mg PO HS [facility] Last Admin: 08/30/17 21:33 Dose: 50 mg Cyclosporine (Cyclosporine) 75 mg PO DAILY [facility] Last Admin: 08/30/17 17:03 Dose: Not Given Famotidine (Pepcid) 20 mg PO DAILY [facility] Last Admin: 08/30/17 17:49 Dose: 20 mg Ciprofloxacin (Cipro 200mg/100ml D5w) 100 mls @ 67 mls/hr IVPB Q12H [facility] Last Admin: 08/31/17 02:51 Dose: 67 mls/hr Lidocaine (Lidoderm) 1 ea TD DAILY [facility] Metoprolol Succinate (Toprol Xl) 50 mg PO BID [facility] Last Admin: 08/30/17 17:46 Dose: 50 mg Morphine Sulfate (Morphine) 1 mg IVP Q4H PRN PRN Reason: Pain, severe (8-10) Last Admin: 08/31/17 03:20 Dose: 1 mg Mycophenolate Mofetil (Cellcept) 500 mg PO BID [facility] Last Admin: 08/30/17 17:45 Dose: 500 mg Jjipk-1-Tvtl Ethyl Esters (Lovaza) 1 gm PO BID [facility] Last Admin: 10/05/17 17:46 Dose: 1 gm Prednisone (Prednisone Tab) 5 mg PO DAILY [facility] Last Admin: 08/30/17 17:02 Dose: Not Given Rosuvastatin Calcium (Crestor) 20 mg PO HS [facility] Last Admin: 08/30/17 21:32 Dose: Not Given Trimethoprim/Sulfamethoxazole (Bactrim Ss Tab) 1 tab PO DAILY [facility] Last Admin: 08/30/17 17:06 Dose: Not Given - Labs Labs: 08/30/17 07:59 08/30/17 07:59 PT 11.9 SECONDS (9.7-12.2) 08/30/17 07:59 INR 1.1 08/30/17 07:59 APTT 23 SECONDS (21-34) 08/30/17 07:59 - Constitutional Appears: No Acute Distress - Head Exam Head Exam: NORMOCEPHALIC. absent: ATRAUMATIC (bruising on the right side of the face with right periorbital swelling) - Eye Exam Eye Exam: EOMI, PERRL - ENT Exam ENT Exam: Mucous Membranes Moist - Respiratory Exam Respiratory Exam: Chest Wall Tenderness (s/p multiple falls), Clear to Ausculation Bilateral. absent: Rales, Rhonchi, Wheezes - Cardiovascular Exam Cardiovascular Exam: REGULAR RHYTHM, +S1, +S2 - GI/Abdominal Exam GI & Abdominal Exam: Soft, Normal Bowel Sounds. absent: Tenderness - Extremities Exam Extremities Exam: Pedal Edema (trace edema bilaterally), Tenderness (right upper and lower extremity tenderness) - Neurological Exam Neurological Exam: Alert, Awake, Oriented x3 Additional comments: Patient is weak on the right side, limited by pain. - Psychiatric Exam Psychiatric exam: Normal Affect, Normal Mood - Skin Skin Exam: Dry, Warm Assessment and Plan - Assessment and Plan (Free Text) Plan: Syncope and collapse EKG showed sinus arrhythmia--premature atrial contractions monitor on tele Cardiology consulted, Dr. Alvarez. Help appreciated F/u Carotid doppler F/u echo F/u orthostatic vitals PT/OT ordered Fall precautions CPK elevated 586 Dr. Faustin orthopedic consult for right shoulder pain s/p fall. Help appreciated. Multiple contusions Lidoderm patch Tylenol prn Morphine Prn Anemia On admission was 9.6 which was below patient's baseline Iron studies demonstrate low transferrin UTI (urinary tract infection) UA showed +3 LE as wells aso RBCs and WBCs started Cipro 200mg IV q12h due to renal insufficiency and Amoxicillin allergy. F/u blood cultures F/u urine cultures HTN (hypertension) Norvasc 5mg Lopressor 50mg bid Hyperlipidemia Home statin Lipitor switched to formulary on hand. Crestor 20 mg HS lipid panel demonstrates borderline elevated Triglycerides continue home Lovaza History of kidney transplant Restarted home meds: * cylcosporine 75mg PO daily * cyclosporine 50 mg PO HS * Cellcept 500 mg PO BID * Prednisone 5 mg PO daily * Bactrim DS once a day for prophylaxis. Consulted patient's beauty advisor Dr. Stokes Prophylactic measure VTE held due to anemia and recent head trauma SCD held due to lower extremity injury Pepcid 20mg daily. Case DW Dr. Kerry Amesed PGY-1
[2017-08-31 07:30] LABS: BASO % 0.2 % (0.0-2.0); EOS % 0.4 % (0.0-4.0); HEMATOCRIT 27.6 % (34.0-47.0); LYMPH # 1.3 K/uL (1.0-4.3); LYMPH % 19.5 % (20.0-40.0); MEAN CELL VOLUME 82.1 fL (81.0-99.0); MEAN CORPUSCULAR HEMOGLOBIN 27.3 pg (27.0-31.0); MEAN CORPUSCULAR HGB CONC 33.3 g/dL (33.0-37.0); MEAN PLATELET VOLUME 7.8 fL (7.2-11.7); MONO # 0.8 K/uL (0.0-0.8); MONO % 11.8 % (0.0-10.0); RED CELL DISTRIBUTION WIDTH 14.5 % (11.5-14.5); RETIC% 1.8 % (0.5-1.5); WHITE BLOOD COUNT 6.7 K/uL (4.8-10.8)
[2017-08-31 07:51] LABS: CHLORIDE 104 mmol/L (98-107); POTASSIUM 3.9 mmol/L (3.6-5.2); SODIUM 135 mmol/L (132-148)
[2017-08-31 07:53] LABS: ALB/GLOB RATIO 1.1 (1.0-2.1); ALKALINE PHOSPHATASE 42 U/L (38-126); AST/SGOT 38 U/L (14-36); BILIRUBIN,TOTAL 0.6 mg/dL (0.2-1.3); BLOOD UREA NITROGEN 33 mg/dL (7-17); CARBON DIOXIDE 22 mmol/L (22-30); CHOLESTEROL 119 mg/dL (0-199); GFR AFRICAN-AMERICAN 45; TOTAL PROTEIN 5.9 g/dL (6.3-8.3)
[2017-08-31 07:54] LABS: ALT/SGPT 33 U/L (9-52); CALCIUM 8.6 mg/dl (8.6-10.4); GLUCOSE,RANDOM 83 mg/dL (65-105)
[2017-08-31 08:23] LABS: TRANSFERRIN 158.31 mg/dL (206-381)
[2017-08-31 09:20] LABS: FREE T4 1.21 ng/dL (0.78-2.19)
[2017-08-31 09:29] LABS: THYROID STIMULATING HORMONE 0.71 mIU/L (0.46-4.68)
[2017-08-31 10:04] LABS: FOLATE > 20.0 ng/mL
[2017-08-31] MEDS: Metoprolol Succinate 50 mg XL Tab PO SCH ×2 (10:10→17:19)
[2017-08-31] MEDS: Omega-3-Acid Ethyl Esters 1 GM Cap PO SCH ×2 (10:12→17:19)
[2017-08-31] MEDS: Tmp-Smz 400 mg-80 mg SS Tab PO SCH (10:12)
[2017-08-31] MEDS: CYCLOSPORINE, MODIFIED 25 MG CAP PO SCH ×2 (10:13→22:07)
[2017-08-31] MEDS: Lidocaine 5% Patch TD SCH (10:14)
--- NOTE | 2017-08-31 14:35 | CP.PCM.CON ---
History of Present Illness - History of Present Illness History of Present Illness: HPI: Patient is a 71 year old female with a history of HTN, hyperlipidemia, Kidney transplant is here because she was found on the floor by her daughter whom she lives. Patient's daughter says the patient was unconscious and was unable to arouse patient for about 30 units. Patient does not remember why she was on the floor not does she remember falling. She says she was been having right sided chest pain, shoulder pain, and right lower extremity pain and weakness since falling 3 days ago. She has extensive bruising on the right side of her face and legs. She denies any changes in vision, hearing, feeling lightheaded, nausea, vomiting, diarrhea, difficulty breathing, wheezing, palpitations, anxiety, depression, numbness tingling, or memory loss. She was seen in the ED about 3 days ago for a fall, they did x:rays of knee, shoulder, head and cervical spine CT which were negative. 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, denies smoking, etoh use , or drug use Other PMH: KIDNEY TRANPLANT 2002 CKD 3 HTN DDD SPINE- SEVERE DYSLIPIDEMIA PSH: KIDNEY TRANSPALNT LAMINECTOMY X 2 SPINAL IMPLANT CATARACTS AV GRAFT AND REMOVAL Review of Systems - Constitutional Constitutional: Daytime Sleepiness, Weakness - EENT Eyes: Blurred Vision Ears: Decreased Hearing Nose/Mouth/Throat: absent: As Per HPI, Epistaxis, Nasal Congestion, Nasal Discharge, Nasal Obstruction, Nasal Trauma, Nose Pain, Post Nasal Drip, Sinus Pain, Sinus Pressure, Bleeding Gums, Change in Voice, Dental Pain, Dry Mouth, Dysphagia, Halitosis, Hoarsness, Lip Swelling, Mouth Lesions, Mouth Pain, Odynophagia, Sore Throat, Throat Swelling, Tongue Swelling, Facial Pain, Neck Pain, Neck Mass, Other - Cardiovascular Cardiovascular: Dyspnea on Exertion, Lightheadedness - Respiratory Respiratory: Dyspnea on Exertion - Gastrointestinal Gastrointestinal: Early Satiety - Genitourinary Genitourinary: Urinary Frequency - Musculoskeletal Musculoskeletal: Muscle Cramps, Myalgias - Integumentary Integumentary: Dry Skin - Neurological Neurological: Syncope, Weakness Past Patient History - Infectious Disease Hx of Infectious Diseases: None - Past Medical History & Family History Past Family History: Reviewed and not pertinent - Past Social History Smoking Status: Never Smoked Chewing Tobacco Use: No Cigar Use: No Alcohol: None Drugs: Denies Home Situation {Lives}: With Family - CARDIAC Hx Cardiac Disorders: No Hx Hypertension: Yes - PULMONARY Hx Respiratory Disorders: No - NEUROLOGICAL Hx Neurological Disorder: No - HEENT Hx Cataracts: Yes - RENAL Hx Chronic Kidney Disease: Yes Other/Comment: Rt. kidney transplant, - ENDOCRINE/METABOLIC Hx Endocrine Disorders: No - MUSCULOSKELETAL/RHEUMATOLOGICAL Hx Falls: Yes (Last Sunday) - GASTROINTESTINAL Hx Gastrointestinal Disorders: No - PSYCHIATRIC Hx Substance Use: No - SURGICAL HISTORY Hx Surgeries: Yes Hx Kidney Transplant: Yes Other/Comment: Rt. kidney transplant - ANESTHESIA Hx Anesthesia: Yes Hx Anesthesia Reactions: No Meds Allergies/Adverse Reactions: Allergies Allergy/AdvReac Type Severity Reaction Status Date / Time amoxicillin AdvReac Severe Verified 08/30/17 06:58 - Medications Medications: Current Medications Acetaminophen (Tylenol 325mg Tab) 650 mg PO Q6 PRN PRN Reason: Pain, moderate (4-7) Amlodipine Besylate (Norvasc) 5 mg PO Q24H [facility] Cyclosporine (Cyclosporine) 50 mg PO HS [facility] Last Admin: 08/30/17 21:33 Dose: 50 mg Cyclosporine (Cyclosporine) 75 mg PO DAILY [facility] Last Admin: 08/31/17 10:13 Dose: 75 mg Famotidine (Pepcid) 20 mg PO DAILY [facility] Last Admin: 08/31/17 10:11 Dose: 20 mg Ciprofloxacin (Cipro 200mg/100ml D5w) 100 mls @ 67 mls/hr IVPB Q12H [facility] Last Admin: 08/31/17 13:17 Dose: 67 mls/hr Lidocaine (Lidoderm) 1 ea TD DAILY [facility] Last Admin: 08/31/17 10:14 Dose: 1 ea Metoprolol Succinate (Toprol Xl) 50 mg PO BID [facility] Last Admin: 08/31/17 10:10 Dose: 50 mg Morphine Sulfate (Morphine) 1 mg IVP Q4H PRN PRN Reason: Pain, severe (8-10) Last Admin: 08/31/17 03:20 Dose: 1 mg Mycophenolate Mofetil (Cellcept) 500 mg PO BID [facility] Last Admin: 08/31/17 10:12 Dose: 500 mg Acoqu-1-Mhgw Ethyl Esters (Lovaza) 1 gm PO BID [facility] Last Admin: 08/31/17 10:12 Dose: 1 gm Pneumococcal Polyvalent Vaccine (Pneumovax 23 Vaccine) 0.5 ml IM .ONCE ONE Stop: 09/02/17 10:01 Prednisone (Prednisone Tab) 5 mg PO DAILY [facility] Last Admin: 08/31/17 10:11 Dose: 5 mg Rosuvastatin Calcium (Crestor) 20 mg PO HS [facility] Last Admin: 08/30/17 21:32 Dose: Not Given Trimethoprim/Sulfamethoxazole (Bactrim Ss Tab) 1 tab PO DAILY [facility] Last Admin: 08/31/17 10:12 Dose: 1 tab Physical Exam - Constitutional Appears: Older Than Stated Age, Chronically Ill - Head Exam Head Exam: NORMOCEPHALIC - Eye Exam Eye Exam: EOMI, Normal appearance - Neck Exam Neck exam: Positive for: Normal Inspection. Negative for: Tenderness - Respiratory Exam Respiratory Exam: Clear to Auscultation Bilateral, NORMAL BREATHING PATTERN - Cardiovascular Exam Cardiovascular Exam: REGULAR RHYTHM, +S1, Systolic Murmur - GI/Abdominal Exam GI & Abdominal Exam: Soft. absent: Tenderness - Extremities Exam Extremities exam: Positive for: normal inspection. Negative for: tenderness - Psychiatric Exam Psychiatric exam: Flat Affect - Skin Skin Exam: Dry, Warm Results - Vital Signs Recent Vital Signs: Last Vital Signs Temp 98 F 08/31/17 11:30 Pulse 69 08/31/17 12:30 Resp 20 08/31/17 11:30 BP 139/74 08/31/17 11:30 Pulse Ox 96 08/31/17 11:30 - Labs Result Diagrams: 08/31/17 07:20 08/31/17 07:20 Labs: Laboratory Results - last 24 hr 08/30/17 08/30/17 08/30/17 16:58 16:58 16:58 WBC RBC Hgb Hct MCV MCH MCHC RDW Plt Count MPV Neut % (Auto) Lymph % (Auto) Dougherty % (Auto) Eos % (Auto) Baso % (Auto) Neut # Lymph # Dougherty # Eos # Baso # Retic Count Sodium Potassium Chloride Carbon Dioxide Anion Gap BUN Creatinine Est GFR ( Amer) Est GFR (Non-Af Amer) POC Glucose (mg/dL) Random Glucose Calcium Iron 13 L TIBC 236 L % Saturation 5 L Transferrin Ferritin Total Bilirubin AST ALT Alkaline Phosphatase Total Creatine Kinase 586 H Troponin I 0.0650 Total Protein Albumin Globulin Albumin/Globulin Ratio Triglycerides Cholesterol LDL Cholesterol Direct HDL Cholesterol Vitamin B12 Folate Free T4 TSH 3rd Generation 08/31/17 08/31/17 08/31/17 00:18 06:28 07:20 WBC 6.7 RBC 3.36 L Hgb 9.2 L Hct 27.6 L MCV 82.1 MCH 27.3 MCHC 33.3 RDW 14.5 Plt Count 138 MPV 7.8 Neut % (Auto) 68.1 Lymph % (Auto) 19.5 L Dougherty % (Auto) 11.8 H Eos % (Auto) 0.4 Baso % (Auto) 0.2 Neut # 4.6 Lymph # 1.3 Dougherty # 0.8 Eos # 0.0 Baso # 0.0 Retic Count 1.8 H Sodium Potassium Chloride Carbon Dioxide Anion Gap BUN Creatinine Est GFR ( Amer) Est GFR (Non-Af Amer) POC Glucose (mg/dL) 88 Random Glucose Calcium Iron TIBC % Saturation Transferrin Ferritin Total Bilirubin AST ALT Alkaline Phosphatase Total Creatine Kinase Troponin I 0.0500 Total Protein Albumin Globulin Albumin/Globulin Ratio Triglycerides Cholesterol LDL Cholesterol Direct HDL Cholesterol Vitamin B12 Folate Free T4 TSH 3rd Generation 08/31/17 08/31/17 07:20 07:20 WBC RBC Hgb Hct MCV MCH MCHC RDW Plt Count MPV Neut % (Auto) Lymph % (Auto) Dougherty % (Auto) Eos % (Auto) Baso % (Auto) Neut # Lymph # Dougherty # Eos # Baso # Retic Count Sodium 135 Potassium 3.9 Chloride 104 Carbon Dioxide 22 Anion Gap 14 BUN 33 H Creatinine 1.4 H Est GFR ( Amer) 45 Est GFR (Non-Af Amer) 37 POC Glucose (mg/dL) Random Glucose 83 Calcium 8.6 Iron TIBC % Saturation Transferrin 158.31 L Ferritin 197.0 Total Bilirubin 0.6 AST 38 H ALT 33 Alkaline Phosphatase 42 Total Creatine Kinase Troponin I Total Protein 5.9 L Albumin 3.1 L Globulin 2.8 Albumin/Globulin Ratio 1.1 Triglycerides 159 H Cholesterol 119 LDL Cholesterol Direct 39 HDL Cholesterol 52 Vitamin B12 338 Folate > 20.0 Free T4 1.21 TSH 3rd Generation 0.71 Assessment & Plan (1) Syncope and collapse Status: Acute Priority: High (2) HTN (hypertension) Status: Chronic Priority: Medium (3) History of kidney transplant Status: Chronic (4) Hyperlipidemia Status: Chronic Priority: Medium - Assessment and Plan (Free Text) Plan: Continue immunosupprerssants Check CSA level Avoid excess pain meds syncope workup
[2017-09-01] MEDS: Ciprofloxacin 200mg/100ml D5W 100 ML IVPB SCH ×2 (01:08→15:51)
[2017-09-01 07:34] LABS: BASO % 0.3 % (0.0-2.0); EOS % 0.5 % (0.0-4.0); HEMATOCRIT 27.6 % (34.0-47.0); LYMPH # 1.6 K/uL (1.0-4.3); LYMPH % 23.6 % (20.0-40.0); MEAN CELL VOLUME 81.6 fL (81.0-99.0); MEAN CORPUSCULAR HEMOGLOBIN 27.5 pg (27.0-31.0); MEAN CORPUSCULAR HGB CONC 33.7 g/dL (33.0-37.0); MONO # 0.9 K/uL (0.0-0.8); RED CELL DISTRIBUTION WIDTH 14.5 % (11.5-14.5); WHITE BLOOD COUNT 6.6 K/uL (4.8-10.8)
[2017-09-01 08:04] LABS: POTASSIUM 3.7 mmol/L (3.6-5.2)
[2017-09-01 08:06] LABS: ALB/GLOB RATIO 1.1 (1.0-2.1); BILIRUBIN,TOTAL 0.8 mg/dL (0.2-1.3); PHOSPHOROUS 2.6 mg/dL (2.5-4.5)
[2017-09-01 08:07] LABS: CALCIUM 8.9 mg/dl (8.6-10.4); MAGNESIUM 1.9 mg/dL (1.6-2.3)
[2017-09-01] MEDS: Lidocaine 5% Patch TD SCH (09:54)
[2017-09-01] MEDS: Metoprolol Succinate 50 mg XL Tab PO SCH ×2 (09:54→17:21)
[2017-09-01] MEDS: CYCLOSPORINE, MODIFIED 25 MG CAP PO SCH ×2 (09:55→21:22)
[2017-09-01] MEDS: Omega-3-Acid Ethyl Esters 1 GM Cap PO SCH ×2 (09:56→17:16)
[2017-09-01] MEDS: Tmp-Smz 400 mg-80 mg SS Tab PO SCH (09:56)
[2017-09-01] MEDS ORDERED: Bisacodyl 5mg EC Tab PO ONE (10:29)
--- NOTE | 2017-09-01 11:51 | CP.PCM.PN ---
Subjective - Date & Time of Evaluation Date of Evaluation: 09/01/17 Time of Evaluation: 10:00 - Subjective Subjective: Medicine Progress Note Patient seen and examined. Patient is complaining of generalized body aches due to her fall. She states that she has a dry cough and that it is causing worsening of her pain. She complains that she has not had a bowel movement in 4 days. Patient is eating well with good appetite. She denies fever, shortness of breath, dizziness, abdominal pain, palpitations, and chest pain. Objective - Vital Signs/Intake and Output Vital Signs (last 24 hours): Temp Pulse Resp BP Pulse Ox 98.9 F 72 20 143/71 99 09/01/17 07:10 09/01/17 07:10 09/01/17 07:10 09/01/17 07:10 09/01/17 07:10 Intake and Output: 09/01/17 09/01/17 06:59 18:59 Intake Total 520 Balance 520 - Medications Medications: Current Medications Acetaminophen (Tylenol 325mg Tab) 650 mg PO Q6 PRN PRN Reason: Pain, moderate (4-7) Amlodipine Besylate (Norvasc) 5 mg PO Q24H [facility] Last Admin: 08/31/17 18:35 Dose: 5 mg Cyclosporine (Cyclosporine) 50 mg PO HS [facility] Last Admin: 08/31/17 22:07 Dose: 50 mg Cyclosporine (Cyclosporine) 75 mg PO DAILY [facility] Last Admin: 09/01/17 09:55 Dose: 75 mg Docusate Sodium (Colace) 100 mg PO BID [facility] Last Admin: 09/01/17 09:54 Dose: 100 mg Famotidine (Pepcid) 20 mg PO DAILY [facility] Last Admin: 09/01/17 09:55 Dose: 20 mg Guaifenesin (Robitussin) 100 mg PO Q4H PRN PRN Reason: Cough Ciprofloxacin (Cipro 200mg/100ml D5w) 100 mls @ 67 mls/hr IVPB Q12H [facility] Last Admin: 09/01/17 01:08 Dose: 67 mls/hr Lidocaine (Lidoderm) 1 ea TD DAILY [facility] Last Admin: 09/01/17 09:54 Dose: 1 ea Metoprolol Succinate (Toprol Xl) 50 mg PO BID [facility] Last Admin: 09/01/17 09:54 Dose: 50 mg Morphine Sulfate (Morphine) 1 mg IVP Q4H PRN PRN Reason: Pain, severe (8-10) Last Admin: 08/31/17 03:20 Dose: 1 mg Mycophenolate Mofetil (Cellcept) 500 mg PO BID [facility] Last Admin: 09/01/17 09:56 Dose: 500 mg Rzvba-4-Eqvp Ethyl Esters (Lovaza) 1 gm PO BID [facility] Last Admin: 09/01/17 09:56 Dose: 1 gm Pneumococcal Polyvalent Vaccine (Pneumovax 23 Vaccine) 0.5 ml IM .ONCE ONE Stop: 09/02/17 10:01 Prednisone (Prednisone Tab) 5 mg PO DAILY [facility] Last Admin: 09/01/17 09:55 Dose: 5 mg Rosuvastatin Calcium (Crestor) 20 mg PO HS [facility] Last Admin: 08/31/17 21:28 Dose: Not Given Trimethoprim/Sulfamethoxazole (Bactrim Ss Tab) 1 tab PO DAILY [facility] Last Admin: 09/01/17 09:56 Dose: 1 tab - Labs Labs: 09/01/17 07:18 09/01/17 07:18 PT 11.9 SECONDS (9.7-12.2) 08/30/17 07:59 INR 1.1 08/30/17 07:59 APTT 23 SECONDS (21-34) 08/30/17 07:59 - Constitutional Appears: Non-toxic, No Acute Distress - Head Exam Additional comments: ecchymosis on right face, soft tissue swelling present - Eye Exam Eye Exam: EOMI, Normal appearance, PERRL - ENT Exam ENT Exam: Mucous Membranes Moist - Respiratory Exam Respiratory Exam: Clear to Ausculation Bilateral, NORMAL BREATHING PATTERN. absent: Prolonged Expiratory Phase, Rales, Rhonchi, Wheezes, Respiratory Distress, Stridor - Cardiovascular Exam Cardiovascular Exam: REGULAR RHYTHM, +S1, +S2. absent: Tachycardia - GI/Abdominal Exam GI & Abdominal Exam: Soft, Normal Bowel Sounds. absent: Tenderness - Extremities Exam Extremities Exam: Joint Swelling (right knee swelling and tenderness), Pedal Edema (1+ pitting bilateral ) Additional comments: ecchymosis and soft tissue swelling of right lower extremity, skin warm to touch - Neurological Exam Neurological Exam: Alert, Awake, Oriented x3 - Psychiatric Exam Psychiatric exam: Normal Affect, Normal Mood - Skin Skin Exam: Dry, Intact, Warm Assessment and Plan - Assessment and Plan (Free Text) Assessment: Fall Consider cardiac vs neurological vs mechanical cause EKG showed sinus arrhythmia--premature atrial contractions ROMIs negative x3 Cardiology consulted, Dr. Alvarez. Help appreciated conveyor monitor showing NSR Carotid doppler- normal findings ECHO- LV EF normal, mild TR, mild , mild MS F/u orthostatic vitals Fall precautions CPK elevated 586 f/u vitamin D level PT/OT ordered- recommended OSVALDO on discharge, plan to dc [facility] once patient stable Multiple contusions Lidoderm patch TD daily Tylenol 350mg PO q6h prn mild pain Morphine 1mg IV q4h prn moderate pain Dr. Faustin orthopedic consult for right shoulder pain s/p fall. Help appreciated. CT head negative for acute bleed CT chest negative for fracture Anemia On admission was 9.6 which was below patient's baseline Iron studies demonstrate low transferrin UTI (urinary tract infection) UA showed +3 LE as wells aso RBCs and WBCs started Cipro 200mg IV q12h due to renal insufficiency and Amoxicillin allergy. Afebrile, no leukocytosis blood cultures negative x24 hours F/u urine cultures Constipation Colace 100mg PO BID Given Dulcolax PO x1 Monitor for bowel movement HTN (hypertension) Well controlled Norvasc 5mg PO daily Toprol XL 50mg bid Hyperlipidemia Home statin Lipitor switched to formulary on hand. Crestor 20 mg HS lipid panel demonstrates borderline elevated Triglycerides continue home Lovaza Liver hyperdensity CT Chest- incidental finding of left lobe liver hyperdensity 3.6cm Will f/u with CT abdomen/pelvis or MRI without contrast once patient stable to assess etiology History of kidney transplant Restarted home meds: * cylcosporine 75mg PO daily * cyclosporine 50 mg PO HS * Cellcept 500 mg PO BID * Prednisone 5 mg PO daily * Bactrim DS once a day for prophylaxis. Consulted patient's pricing director Dr. Stokes- help appreciated Prophylactic measure VTE held due to anemia and recent trauma SCD held due to lower extremity injury Pepcid 20mg daily.
--- NOTE | 2017-09-01 12:25 | CP.PCM.PN ---
Subjective - Date & Time of Evaluation Date of Evaluation: 09/01/17 Time of Evaluation: 10:00 - Subjective Subjective: pain in wrist no acute events for ana placement no chest pain no sob no urinary abnormalities no nausea no vomiting mild depression no edema no rash no headache Objective - Vital Signs/Intake and Output Vital Signs (last 24 hours): Temp Pulse Resp BP Pulse Ox 98.9 F 71 20 143/71 99 09/01/17 07:10 09/01/17 08:10 09/01/17 07:10 09/01/17 07:10 09/01/17 07:10 Intake and Output: 09/01/17 09/01/17 06:59 18:59 Intake Total 520 Balance 520 - Medications Medications: Current Medications Acetaminophen (Tylenol 325mg Tab) 650 mg PO Q6 PRN PRN Reason: Pain, moderate (4-7) Amlodipine Besylate (Norvasc) 5 mg PO Q24H [facility] Last Admin: 08/31/17 18:35 Dose: 5 mg Cyclosporine (Cyclosporine) 50 mg PO HS [facility] Last Admin: 08/31/17 22:07 Dose: 50 mg Cyclosporine (Cyclosporine) 75 mg PO DAILY [facility] Last Admin: 09/01/17 09:55 Dose: 75 mg Docusate Sodium (Colace) 100 mg PO BID [facility] Last Admin: 09/01/17 09:54 Dose: 100 mg Famotidine (Pepcid) 20 mg PO DAILY [facility] Last Admin: 09/01/17 09:55 Dose: 20 mg Guaifenesin (Robitussin) 100 mg PO Q4H PRN PRN Reason: Cough Ciprofloxacin (Cipro 200mg/100ml D5w) 100 mls @ 67 mls/hr IVPB Q12H [facility] Last Admin: 09/01/17 01:08 Dose: 67 mls/hr Lidocaine (Lidoderm) 1 ea TD DAILY [facility] Last Admin: 09/01/17 09:54 Dose: 1 ea Metoprolol Succinate (Toprol Xl) 50 mg PO BID [facility] Last Admin: 09/01/17 09:54 Dose: 50 mg Morphine Sulfate (Morphine) 1 mg IVP Q4H PRN PRN Reason: Pain, severe (8-10) Last Admin: 09/01/17 12:01 Dose: 1 mg Mycophenolate Mofetil (Cellcept) 500 mg PO BID [facility] Last Admin: 09/01/17 09:56 Dose: 500 mg Fjrof-4-Azxp Ethyl Esters (Lovaza) 1 gm PO BID [facility] Last Admin: 09/01/17 09:56 Dose: 1 gm Pneumococcal Polyvalent Vaccine (Pneumovax 23 Vaccine) 0.5 ml IM .ONCE ONE Stop: 09/02/17 10:01 Prednisone (Prednisone Tab) 5 mg PO DAILY [facility] Last Admin: 09/01/17 09:55 Dose: 5 mg Rosuvastatin Calcium (Crestor) 20 mg PO HS [facility] Last Admin: 08/31/17 21:28 Dose: Not Given Trimethoprim/Sulfamethoxazole (Bactrim Ss Tab) 1 tab PO DAILY [facility] Last Admin: 09/01/17 09:56 Dose: 1 tab - Labs Labs: 09/01/17 07:18 09/01/17 07:18 PT 11.9 SECONDS (9.7-12.2) 08/30/17 07:59 INR 1.1 08/30/17 07:59 APTT 23 SECONDS (21-34) 08/30/17 07:59 - Constitutional Appears: Non-toxic - Head Exam Additional comments: ecchymoses on right face - Eye Exam Eye Exam: EOMI - ENT Exam ENT Exam: Mucous Membranes Moist - Neck Exam Neck Exam: Full ROM. absent: Lymphadenopathy - Respiratory Exam Respiratory Exam: Clear to Ausculation Bilateral. absent: Accessory Muscle Use - Cardiovascular Exam Cardiovascular Exam: REGULAR RHYTHM - GI/Abdominal Exam GI & Abdominal Exam: Soft, Normal Bowel Sounds Additional comments: allograft nontender - Neurological Exam Neurological Exam: Alert, Oriented x3 Assessment and Plan - Assessment and Plan (Free Text) Assessment: renal transplant htn ckd 3 fall/ecchymotic no fractures for rehab complete cardiac w/u of syncope
--- NOTE | 2017-09-01 16:57 | CON ---
INPATIENT CONSULTATION DATE: 09/01/2017 REASON FOR CONSULTATION: Status post fall with right shoulder and right leg pain. HISTORY OF PRESENT ILLNESS: This is a 71-year-old female who according to the daughter had fell on this past Sunday and subsequently was found on the floor of her apartment on Sunday. She was admitted to the hospital 2 days ago for possible syncope, UTI as well as anemia. Today, the patient complains of right shoulder and right knee pain. PHYSICAL EXAMINATION: GENERAL: On clinical examination, she is awake, alert and oriented x3 EXTREMITIES: Evaluation of the right shoulder shows she has ecchymosis about the right arm. There is no gross deformity or crepitus appreciated. Negative Sulcus sign is appreciated. She is tolerating passive forward flexion of approximately 40 degrees with pain. The patient is unable to actively move the right shoulder. She is nontender over humeral shaft. She is nontender about the elbow and is tolerating some range of motion of the elbow without any pain. She is actively flexing and extending her wrists without any pain and is able to make a full fist. Grossly, she is neurovascularly intact. Evaluation of the right lower extremity shows that she is tolerating some passive internal and external rotation of the right hip without any pain. She is able to tolerate some passive flexion of the hip without any pain. She does have significant ecchymosis along the anterior aspect of her knee and has tenderness to palpation over her knee. Her thigh and calf are otherwise soft and nontender. No tibial crepitus is appreciated and no gross deformity is appreciated. She is able to actively dorsiflex and plantar flex her ankles and wiggle her toes without any pain. Again, she is grossly neurovascularly intact. X-rays of the right shoulder showed no obvious fractures or dislocations. X-rays of her pelvis showed no obvious fractures or dislocations. No x-rays of the knee were done. IMPRESSION: Status post fall with right shoulder and right knee pain. PLAN: We are going to order x-rays of her right knee. For now, we will keep her nonweightbearing. We will follow up once the x-rays are complete. Mann Faustin MD [facility] # [phone]
--- NOTE | 2017-09-01 17:12 | RAD ---
PROCEDURE: Right Knee Radiographs. HISTORY: s/p fall COMPARISON: None. FINDINGS: BONES: No acute fractures. JOINTS: Severe medial compartment narrowing. JOINT EFFUSION: Small suprapatellar joint effusion. OTHER FINDINGS: Diffuse soft tissue swelling. IMPRESSION: Soft tissue swelling without acute articular or osseous abnormality.
--- NOTE | 2017-09-01 19:57 | CP.PCM.PN ---
Subjective - Date & Time of Evaluation Date of Evaluation: 08/31/17 Time of Evaluation: 19:50 - Subjective Subjective: Patient seen and evaluated No new events noted Review of Systems - Review of Systems All systems: reviewed and no additional remarkable complaints except - Constitutional Constitutional: absent: Chills, Fever - EENT Eyes: absent: Change in Vision Ears: absent: Dizziness - Cardiovascular Cardiovascular: Chest Pain, Syncope. absent: Dyspnea, Palpitations, Radiating Pain - Respiratory Respiratory: absent: Cough, Dyspnea, Wheezing - Gastrointestinal Gastrointestinal: absent: Abdominal Pain, Constipation, Diarrhea, Nausea, Vomiting - Genitourinary Genitourinary: absent: Dysuria - Musculoskeletal Musculoskeletal: Limited Range of Motion, Muscle Weakness, Myalgias. absent: Back Pain, Joint Swelling, Numbness, Tingling - Neurological Neurological: Syncope, Weakness. absent: Convulsions, Dizziness, Numbness, Frequent Falls, Headaches, Memory Loss, Paresthesias, Sensory Deficit - Psychiatric Psychiatric: absent: Anxiety - Endocrine Endocrine: absent: Fatigue, Palpitations Physical Exam - Constitutional Appears: Non-toxic, No Acute Distress - Eye Exam Eye Exam: Normal appearance, PERRL. absent: Nystagmus, Scleral icterus Pupil Exam: NORMAL ACCOMODATION - ENT Exam ENT Exam: Mucous Membranes Moist, Normal Exam, Normal External Ear Exam, Normal Oropharynx, TM's Normal Bilaterally - Neck Exam Neck exam: Positive for: Normal Inspection - Respiratory Exam Respiratory Exam: Clear to Auscultation Bilateral. absent: Rales, Rhonchi, Wheezes - Cardiovascular Exam Cardiovascular Exam: REGULAR RHYTHM, RRR, +S1, +S2. absent: Gallop, Rubs - GI/Abdominal Exam GI & Abdominal Exam: Normal Bowel Sounds, Soft. absent: Guarding, Rebound, Tenderness - Extremities Exam Extremities exam: Positive for: pedal edema, tenderness. Negative for: normal inspection - Back Exam Back exam: absent: CVA tenderness (L), CVA tenderness (R) - Neurological Exam Neurological exam: Alert, Oriented x3 Additional comments: weaker on the right side both upper and lower extremity - Psychiatric Exam Psychiatric exam: Normal Affect, Normal Mood - Skin Skin Exam: Pallor Additional comments: Bruising on the left and face Objective - Vital Signs/Intake and Output Vital Signs (last 24 hours): Temp Pulse Resp BP Pulse Ox 98.7 F 72 20 134/69 100 09/01/17 15:00 09/01/17 15:00 09/01/17 15:00 09/01/17 15:00 09/01/17 15:00 - Medications Medications: Current Medications Acetaminophen (Tylenol 325mg Tab) 650 mg PO Q6 PRN PRN Reason: Pain, moderate (4-7) Amlodipine Besylate (Norvasc) 5 mg PO Q24H [facility] Last Admin: 09/01/17 17:21 Dose: 5 mg Cyclosporine (Cyclosporine) 50 mg PO HS [facility] Last Admin: 08/31/17 22:07 Dose: 50 mg Cyclosporine (Cyclosporine) 75 mg PO DAILY [facility] Last Admin: 09/01/17 09:55 Dose: 75 mg Docusate Sodium (Colace) 100 mg PO BID [facility] Last Admin: 09/01/17 17:16 Dose: 100 mg Famotidine (Pepcid) 20 mg PO DAILY [facility] Last Admin: 09/01/17 09:55 Dose: 20 mg Guaifenesin (Robitussin) 100 mg PO Q4H PRN PRN Reason: Cough Ciprofloxacin (Cipro 200mg/100ml D5w) 100 mls @ 67 mls/hr IVPB Q12H [facility] Last Admin: 09/01/17 15:51 Dose: 67 mls/hr Lidocaine (Lidoderm) 1 ea TD DAILY [facility] Last Admin: 09/01/17 09:54 Dose: 1 ea Metoprolol Succinate (Toprol Xl) 50 mg PO BID [facility] Last Admin: 09/01/17 17:21 Dose: 50 mg Morphine Sulfate (Morphine) 1 mg IVP Q4H PRN PRN Reason: Pain, severe (8-10) Last Admin: 09/01/17 12:01 Dose: 1 mg Mycophenolate Mofetil (Cellcept) 500 mg PO BID [facility] Last Admin: 09/01/17 17:16 Dose: 500 mg [id number] Ethyl Esters (Lovaza) 1 gm PO BID [facility] Last Admin: 09/01/17 17:16 Dose: 1 gm Pneumococcal Polyvalent Vaccine (Pneumovax 23 Vaccine) 0.5 ml IM .ONCE ONE Stop: 09/02/17 10:01 Prednisone (Prednisone Tab) 5 mg PO DAILY [facility] Last Admin: 09/01/17 09:55 Dose: 5 mg Rosuvastatin Calcium (Crestor) 20 mg PO HS [facility] Last Admin: 08/31/17 21:28 Dose: Not Given Trimethoprim/Sulfamethoxazole (Bactrim Ss Tab) 1 tab PO DAILY [facility] Last Admin: 09/01/17 09:56 Dose: 1 tab - Labs Labs: 09/01/17 07:18 09/01/17 07:18 PT 11.9 SECONDS (9.7-12.2) 08/30/17 07:59 INR 1.1 08/30/17 07:59 APTT 23 SECONDS (21-34) 08/30/17 07:59 Assessment and Plan - Assessment and Plan (Free Text) Assessment: (1) Syncope and collapse Assessment and Plan: Patient with altered mental status for 30 minutes, unlikely cardiac ECHO: Normal EF Carotids normal Trop x 3 negative Tilt table test and Stress test on Sunday Patient will likely need neuro evaluation (2) Multiple contusions Assessment and Plan: Lidoderm patch, Tylenol and Morphine Prn Physical and occupational therapy, patient need to [facility] after discharge. Status: Acute Priority: High (3) Anemia Assessment and Plan: Hbg is 9.2, which is well below her baseline. Will do anemia work up, Rectic count, iron studies, B12, and folate, and also stool ob x3. Status: Acute Priority: High (4) UTI (urinary tract infection) Assessment and Plan: UA showed +3 LE as wells aso RBCs and WBCs, started Cipro 200mg IV q12h due to renal insufficiency and Amoxicillin allergy. Follow up blood and urine culture. Status: Acute Priority: High (5) HTN (hypertension) Assessment and Plan: Norvasc 5mg Lopressor 50mg bid Status: Chronic Priority: Medium (6) Hyperlipidemia Assessment and Plan: Statin, follow up lipid panel also continue Lovaza Status: Chronic Priority: Medium (7) History of kidney transplant Assessment and Plan: Patient is on several medication such as cylcosporine 75mg and 50mg HS, Cellcept 500mg bid, prednisone 5mg, and also Bactrim DS once a day for prophylaxis. Consulted patient's croze cutter Dr. Bai Status: Chronic (8) Prophylactic measure Assessment and Plan: Will hold VTE due to anemia and recent head trauma , and also old SCD due to lower extremity injury Pepcid 20mg daily. Status: Acute Priority: Medium
[2017-09-02] MEDS: Ciprofloxacin 200mg/100ml D5W 100 ML IVPB SCH ×2 (01:59→13:53)
[2017-09-02 08:25] LABS: BASO % 0.4 % (0.0-2.0); EOS # 0.1 K/uL (0.0-0.7); EOS % 0.9 % (0.0-4.0); LYMPH # 1.6 K/uL (1.0-4.3); LYMPH % 26.1 % (20.0-40.0); MEAN CELL VOLUME 81.2 fL (81.0-99.0); MEAN CORPUSCULAR HEMOGLOBIN 27.3 pg (27.0-31.0); MEAN CORPUSCULAR HGB CONC 33.6 g/dL (33.0-37.0); MEAN PLATELET VOLUME 7.8 fL (7.2-11.7); MONO # 0.8 K/uL (0.0-0.8); MONO % 13.5 % (0.0-10.0); RED CELL DISTRIBUTION WIDTH 14.9 % (11.5-14.5); WHITE BLOOD COUNT 6.1 K/uL (4.8-10.8)
[2017-09-02 08:32] LABS: POTASSIUM 3.8 mmol/L (3.6-5.2)
[2017-09-02 08:34] LABS: BILIRUBIN,TOTAL 0.8 mg/dL (0.2-1.3)
[2017-09-02 08:35] LABS: ALB/GLOB RATIO 1.1 (1.0-2.1); CALCIUM 8.7 mg/dl (8.6-10.4); MAGNESIUM 1.8 mg/dL (1.6-2.3); PHOSPHOROUS 3.3 mg/dL (2.5-4.5); TOTAL PROTEIN 5.9 g/dL (6.3-8.3)
--- NOTE | 2017-09-02 09:10 | CP.PCM.PN ---
Subjective - Date & Time of Evaluation Date of Evaluation: 09/02/17 Time of Evaluation: 09:07 - Subjective Subjective: PGY1 Medicine Note for Dr. Payne Patient seen and examined. Patient is stating that her generalized body aches are improving. She still has a dry cough and that it is causing worsening of her pain. Patient is eating well. She denies fever, shortness of breath, dizziness, abdominal pain, palpitations, and chest pain. Objective - Vital Signs/Intake and Output Vital Signs (last 24 hours): Temp Pulse Resp BP Pulse Ox 97.6 F 92 H 20 137/66 95 09/02/17 07:05 09/02/17 07:05 09/02/17 07:05 09/02/17 07:05 09/02/17 07:05 Intake and Output: 09/02/17 09/02/17 06:59 18:59 Intake Total 460 Output Total 3 Balance 457 - Medications Medications: Current Medications Acetaminophen (Tylenol 325mg Tab) 650 mg PO Q6 PRN PRN Reason: Pain, moderate (4-7) Amlodipine Besylate (Norvasc) 5 mg PO Q24H [facility] Last Admin: 09/01/17 17:21 Dose: 5 mg Cyclosporine (Cyclosporine) 50 mg PO HS [facility] Last Admin: 09/01/17 21:22 Dose: 50 mg Cyclosporine (Cyclosporine) 75 mg PO DAILY [facility] Last Admin: 09/01/17 09:55 Dose: 75 mg Docusate Sodium (Colace) 100 mg PO BID [facility] Last Admin: 09/01/17 17:16 Dose: 100 mg Famotidine (Pepcid) 20 mg PO DAILY [facility] Last Admin: 09/01/17 09:55 Dose: 20 mg Guaifenesin (Robitussin) 100 mg PO Q4H PRN PRN Reason: Cough Ciprofloxacin (Cipro 200mg/100ml D5w) 100 mls @ 67 mls/hr IVPB Q12H [facility] Last Admin: 09/02/17 01:59 Dose: 67 mls/hr Lidocaine (Lidoderm) 1 ea TD DAILY [facility] Last Admin: 09/01/17 09:54 Dose: 1 ea Metoprolol Succinate (Toprol Xl) 50 mg PO BID [facility] Last Admin: 09/01/17 17:21 Dose: 50 mg Morphine Sulfate (Morphine) 1 mg IVP Q4H PRN PRN Reason: Pain, severe (8-10) Last Admin: 09/01/17 21:22 Dose: 1 mg Mycophenolate Mofetil (Cellcept) 500 mg PO BID [facility] Last Admin: 09/01/17 17:16 Dose: 500 mg Nfpey-5-Rnpj Ethyl Esters (Lovaza) 1 gm PO BID [facility] Last Admin: 09/01/17 17:16 Dose: 1 gm Pneumococcal Polyvalent Vaccine (Pneumovax 23 Vaccine) 0.5 ml IM .ONCE ONE Stop: 09/02/17 10:01 Prednisone (Prednisone Tab) 5 mg PO DAILY [facility] Last Admin: 09/01/17 09:55 Dose: 5 mg Rosuvastatin Calcium (Crestor) 20 mg PO HS [facility] Last Admin: 09/01/17 21:22 Dose: 20 mg Trimethoprim/Sulfamethoxazole (Bactrim Ss Tab) 1 tab PO DAILY [facility] Last Admin: 09/01/17 09:56 Dose: 1 tab - Labs Labs: 09/02/17 08:07 09/02/17 08:07 PT 11.9 SECONDS (9.7-12.2) 08/30/17 07:59 INR 1.1 08/30/17 07:59 APTT 23 SECONDS (21-34) 08/30/17 07:59 - Constitutional Appears: Non-toxic, No Acute Distress - Head Exam Additional comments: ecchymosis on right face, soft tissue swelling present - Eye Exam Eye Exam: EOMI, Normal appearance, PERRL - ENT Exam ENT Exam: Mucous Membranes Moist - Respiratory Exam Respiratory Exam: Clear to Ausculation Bilateral, NORMAL BREATHING PATTERN - Cardiovascular Exam Cardiovascular Exam: REGULAR RHYTHM, +S1, +S2 - GI/Abdominal Exam GI & Abdominal Exam: Soft, Normal Bowel Sounds. absent: Distended, Firm, Guarding, Rigid, Tenderness - Extremities Exam Extremities Exam: Joint Swelling (right knee swelling and tenderness), Pedal Edema (1+ pitting edema) Additional comments: ecchymosis and soft tissue swelling of right lower extremity, skin warm to touch - Neurological Exam Neurological Exam: Alert, Awake, Oriented x3 - Psychiatric Exam Psychiatric exam: Normal Affect, Normal Mood - Skin Skin Exam: Dry, Warm Assessment and Plan - Assessment and Plan (Free Text) Plan: Fall Consider cardiac vs neurological vs mechanical cause EKG showed sinus arrhythmia--premature atrial contractions ROMIs negative x3 Cardiology consulted, Dr. Alvarez. Help appreciated - Patient is to have Tilt table test and Stress test on Monday 09/03 gambling monitor showing NSR Carotid doppler- normal findings ECHO- LV EF normal, mild TR, mild , mild MS F/u orthostatic vitals Fall precautions CPK elevated 586 f/u vitamin D level PT/OT ordered- recommended [facility] on discharge, plan to [facility] once patient stable Multiple contusions Lidoderm patch TD daily Tylenol 350mg PO q6h prn mild pain Morphine 1mg IV q4h prn moderate pain Dr. Faustin orthopedic consult for right shoulder pain s/p fall. Help appreciated. CT head negative for acute bleed CT chest negative for fracture Anemia On admission was 9.6 which was below patient's baseline Iron studies demonstrate low transferrin UTI (urinary tract infection) UA showed +3 LE as wells aso RBCs and WBCs started Cipro 200mg IV q12h due to renal insufficiency and Amoxicillin allergy. Afebrile, no leukocytosis blood cultures negative x48 hours F/u urine cultures Constipation Colace 100mg PO BID Given Dulcolax PO x1 Monitor for bowel movement HTN (hypertension) Well controlled Norvasc 5mg PO daily Toprol XL 50mg bid Hyperlipidemia Home statin Lipitor switched to formulary on hand. Crestor 20 mg HS lipid panel demonstrates borderline elevated Triglycerides continue home Lovaza Liver hyperdensity CT Chest- incidental finding of left lobe liver hyperdensity 3.6cm Will f/u with CT abdomen/pelvis or MRI without contrast once patient stable to assess etiology History of kidney transplant Restarted home meds: * cylcosporine 75mg PO daily * cyclosporine 50 mg PO HS * Cellcept 500 mg PO BID * Prednisone 5 mg PO daily * Bactrim DS once a day for prophylaxis. Consulted patient's smt machine operator Dr. Stokes- help appreciated Prophylactic measure VTE held due to anemia and recent trauma SCD held due to lower extremity injury Pepcid 20mg daily. Will discuss case with Dr. Kerry Perrin Donal PGY1
[2017-09-02] MEDS ORDERED: Pneumococcal 23-Valent Vaccine IM ONE (10:00)
[2017-09-02] MEDS: Tmp-Smz 400 mg-80 mg SS Tab PO SCH (10:54)
[2017-09-02] MEDS: CYCLOSPORINE, MODIFIED 25 MG CAP PO SCH ×2 (10:54→22:15)
[2017-09-02] MEDS: Lidocaine 5% Patch TD SCH (10:55)
[2017-09-02] MEDS: Omega-3-Acid Ethyl Esters 1 GM Cap PO SCH ×2 (10:55→19:00)
[2017-09-02] MEDS: guaiFENesin 100 mg/5 ml Syrup UD PO PRN ×2 (10:57→19:56)
[2017-09-02] MEDS: Metoprolol Succinate 50 mg XL Tab PO SCH ×2 (10:57→19:00)
--- NOTE | 2017-09-02 21:00 | CP.PCM.PN ---
Subjective - Date & Time of Evaluation Date of Evaluation: 09/01/17 Time of Evaluation: 20:20 - Subjective Subjective: Patient seen and evaluated Denies chest pain, dizziness or dyspnea Review of Systems - Review of Systems All systems: reviewed and no additional remarkable complaints except - Constitutional Constitutional: absent: Chills, Fever - EENT Eyes: absent: Change in Vision Ears: absent: Dizziness - Cardiovascular Cardiovascular: Chest Pain, Syncope. absent: Dyspnea, Palpitations, Radiating Pain - Respiratory Respiratory: absent: Cough, Dyspnea, Wheezing - Gastrointestinal Gastrointestinal: absent: Abdominal Pain, Constipation, Diarrhea, Nausea, Vomiting - Genitourinary Genitourinary: absent: Dysuria - Musculoskeletal Musculoskeletal: Limited Range of Motion, Muscle Weakness, Myalgias. absent: Back Pain, Joint Swelling, Numbness, Tingling - Neurological Neurological: Syncope, Weakness. absent: Convulsions, Dizziness, Numbness, Frequent Falls, Headaches, Memory Loss, Paresthesias, Sensory Deficit - Psychiatric Psychiatric: absent: Anxiety - Endocrine Endocrine: absent: Fatigue, Palpitations Physical Exam - Constitutional Appears: Non-toxic, No Acute Distress - Eye Exam Eye Exam: Normal appearance, PERRL. absent: Nystagmus, Scleral icterus Pupil Exam: NORMAL ACCOMODATION - ENT Exam ENT Exam: Mucous Membranes Moist, Normal Exam, Normal External Ear Exam, Normal Oropharynx, TM's Normal Bilaterally - Neck Exam Neck exam: Positive for: Normal Inspection - Respiratory Exam Respiratory Exam: Clear to Auscultation Bilateral. absent: Rales, Rhonchi, Wheezes - Cardiovascular Exam Cardiovascular Exam: REGULAR RHYTHM, RRR, +S1, +S2. absent: Gallop, Rubs - GI/Abdominal Exam GI & Abdominal Exam: Normal Bowel Sounds, Soft. absent: Guarding, Rebound, Tenderness - Extremities Exam Extremities exam: Positive for: pedal edema, tenderness. Negative for: normal inspection - Back Exam Back exam: absent: CVA tenderness (L), CVA tenderness (R) - Neurological Exam Neurological exam: Alert, Oriented x3 Additional comments: weaker on the right side both upper and lower extremity - Psychiatric Exam Psychiatric exam: Normal Affect, Normal Mood - Skin Skin Exam: Pallor Additional comments: Bruising on the left and face Objective - Vital Signs/Intake and Output Vital Signs (last 24 hours): Temp Pulse Resp BP Pulse Ox 98.6 F 89 20 123/64 99 09/02/17 16:28 09/02/17 16:28 09/02/17 16:28 09/02/17 16:28 09/02/17 16:28 - Medications Medications: Current Medications Acetaminophen (Tylenol 325mg Tab) 650 mg PO Q6 PRN PRN Reason: Pain, moderate (4-7) Amlodipine Besylate (Norvasc) 5 mg PO Q24H [facility] Last Admin: 09/02/17 19:00 Dose: 5 mg Cyclosporine (Cyclosporine) 50 mg PO HS [facility] Last Admin: 09/01/17 21:22 Dose: 50 mg Cyclosporine (Cyclosporine) 75 mg PO DAILY [facility] Last Admin: 09/02/17 10:54 Dose: 75 mg Docusate Sodium (Colace) 100 mg PO BID [facility] Last Admin: 09/02/17 19:00 Dose: 100 mg Famotidine (Pepcid) 20 mg PO DAILY [facility] Last Admin: 09/02/17 10:55 Dose: 20 mg Guaifenesin (Robitussin) 100 mg PO Q4H PRN PRN Reason: Cough Last Admin: 09/02/17 19:56 Dose: 100 mg Ciprofloxacin (Cipro 200mg/100ml D5w) 100 mls @ 67 mls/hr IVPB Q12H [facility] Last Admin: 09/02/17 13:53 Dose: 67 mls/hr Lidocaine (Lidoderm) 1 ea TD DAILY [facility] Last Admin: 09/02/17 10:55 Dose: 1 ea Metoprolol Succinate (Toprol Xl) 50 mg PO BID [facility] Last Admin: 09/02/17 19:00 Dose: 50 mg Morphine Sulfate (Morphine) 1 mg IVP Q4H PRN PRN Reason: Pain, severe (8-10) Last Admin: 09/02/17 19:56 Dose: 1 mg Mycophenolate Mofetil (Cellcept) 500 mg PO BID [facility] Last Admin: 09/02/17 19:00 Dose: 500 mg Kwncm-9-Sgkg Ethyl Esters (Lovaza) 1 gm PO BID [facility] Last Admin: 09/02/17 19:00 Dose: 1 gm Prednisone (Prednisone Tab) 5 mg PO DAILY [facility] Last Admin: 09/02/17 10:57 Dose: 5 mg Rosuvastatin Calcium (Crestor) 20 mg PO HS [facility] Last Admin: 09/01/17 21:22 Dose: 20 mg Trimethoprim/Sulfamethoxazole (Bactrim Ss Tab) 1 tab PO DAILY [facility] Last Admin: 09/02/17 10:54 Dose: 1 tab - Labs Labs: 09/02/17 08:07 09/02/17 08:07 PT 11.9 SECONDS (9.7-12.2) 08/30/17 07:59 INR 1.1 08/30/17 07:59 APTT 23 SECONDS (21-34) 08/30/17 07:59 Assessment and Plan - Assessment and Plan (Free Text) Assessment: (1) Syncope and collapse Assessment and Plan: Patient with altered mental status for 30 minutes, unlikely cardiac ECHO: Normal EF Carotids normal Trop x 3 negative Tilt table test on Sunday Patient will likely need neuro evaluation (2) Multiple contusions Assessment and Plan: Lidoderm patch, Tylenol and Morphine Prn Physical and occupational therapy, patient need to [facility] after discharge. Status: Acute Priority: High (3) Anemia Assessment and Plan: Hbg is 9.2, which is well below her baseline. Will do anemia work up, Rectic count, iron studies, B12, and folate, and also stool ob x3. Status: Acute Priority: High (4) UTI (urinary tract infection) Assessment and Plan: UA showed +3 LE as wells aso RBCs and WBCs, started Cipro 200mg IV q12h due to renal insufficiency and Amoxicillin allergy. Follow up blood and urine culture. Status: Acute Priority: High (5) HTN (hypertension) Assessment and Plan: Norvasc 5mg Lopressor 50mg bid Status: Chronic Priority: Medium (6) Hyperlipidemia Assessment and Plan: Statin, follow up lipid panel also continue Lovaza Status: Chronic Priority: Medium (7) History of kidney transplant Assessment and Plan: Patient is on several medication such as cylcosporine 75mg and 50mg HS, Cellcept 500mg bid, prednisone 5mg, and also Bactrim DS once a day for prophylaxis. Consulted patient's document imaging manager Dr. Bai Status: Chronic (8) Prophylactic measure Assessment and Plan: Will hold VTE due to anemia and recent head trauma , and also old SCD due to lower extremity injury Pepcid 20mg daily. Status: Acute Priority: Medium
--- NOTE | 2017-09-02 21:01 | CP.PCM.PN ---
Subjective - Date & Time of Evaluation Date of Evaluation: 09/02/17 Time of Evaluation: 18:50 - Subjective Subjective: Patient seen and evaluated No new events noted Daughter at bedisde Discussed about Tilt Table test in am Review of Systems - Review of Systems All systems: reviewed and no additional remarkable complaints except - Constitutional Constitutional: absent: Chills, Fever - EENT Eyes: absent: Change in Vision Ears: absent: Dizziness - Cardiovascular Cardiovascular: Chest Pain, Syncope. absent: Dyspnea, Palpitations, Radiating Pain - Respiratory Respiratory: absent: Cough, Dyspnea, Wheezing - Gastrointestinal Gastrointestinal: absent: Abdominal Pain, Constipation, Diarrhea, Nausea, Vomiting - Genitourinary Genitourinary: absent: Dysuria - Musculoskeletal Musculoskeletal: Limited Range of Motion, Muscle Weakness, Myalgias. absent: Back Pain, Joint Swelling, Numbness, Tingling - Neurological Neurological: Syncope, Weakness. absent: Convulsions, Dizziness, Numbness, Frequent Falls, Headaches, Memory Loss, Paresthesias, Sensory Deficit - Psychiatric Psychiatric: absent: Anxiety - Endocrine Endocrine: absent: Fatigue, Palpitations Physical Exam - Constitutional Appears: Non-toxic, No Acute Distress - Eye Exam Eye Exam: Normal appearance, PERRL. absent: Nystagmus, Scleral icterus Pupil Exam: NORMAL ACCOMODATION - ENT Exam ENT Exam: Mucous Membranes Moist, Normal Exam, Normal External Ear Exam, Normal Oropharynx, TM's Normal Bilaterally - Neck Exam Neck exam: Positive for: Normal Inspection - Respiratory Exam Respiratory Exam: Clear to Auscultation Bilateral. absent: Rales, Rhonchi, Wheezes - Cardiovascular Exam Cardiovascular Exam: REGULAR RHYTHM, RRR, +S1, +S2. absent: Gallop, Rubs - GI/Abdominal Exam GI & Abdominal Exam: Normal Bowel Sounds, Soft. absent: Guarding, Rebound, Tenderness - Extremities Exam Extremities exam: Positive for: pedal edema, tenderness. Negative for: normal inspection - Back Exam Back exam: absent: CVA tenderness (L), CVA tenderness (R) - Neurological Exam Neurological exam: Alert, Oriented x3 Additional comments: weaker on the right side both upper and lower extremity - Psychiatric Exam Psychiatric exam: Normal Affect, Normal Mood - Skin Skin Exam: Pallor Additional comments: Bruising on the left and face Objective - Vital Signs/Intake and Output Vital Signs (last 24 hours): Temp Pulse Resp BP Pulse Ox 98.6 F 89 20 123/64 99 09/02/17 16:28 09/02/17 16:28 09/02/17 16:28 09/02/17 16:28 09/02/17 16:28 - Medications Medications: Current Medications Acetaminophen (Tylenol 325mg Tab) 650 mg PO Q6 PRN PRN Reason: Pain, moderate (4-7) Amlodipine Besylate (Norvasc) 5 mg PO Q24H [facility] Last Admin: 09/02/17 19:00 Dose: 5 mg Cyclosporine (Cyclosporine) 50 mg PO HS [facility] Last Admin: 09/01/17 21:22 Dose: 50 mg Cyclosporine (Cyclosporine) 75 mg PO DAILY [facility] Last Admin: 09/02/17 10:54 Dose: 75 mg Docusate Sodium (Colace) 100 mg PO BID [facility] Last Admin: 09/02/17 19:00 Dose: 100 mg Famotidine (Pepcid) 20 mg PO DAILY [facility] Last Admin: 09/02/17 10:55 Dose: 20 mg Guaifenesin (Robitussin) 100 mg PO Q4H PRN PRN Reason: Cough Last Admin: 09/02/17 19:56 Dose: 100 mg Ciprofloxacin (Cipro 200mg/100ml D5w) 100 mls @ 67 mls/hr IVPB Q12H [facility] Last Admin: 09/02/17 13:53 Dose: 67 mls/hr Lidocaine (Lidoderm) 1 ea TD DAILY [facility] Last Admin: 09/02/17 10:55 Dose: 1 ea Metoprolol Succinate (Toprol Xl) 50 mg PO BID [facility] Last Admin: 09/02/17 19:00 Dose: 50 mg Morphine Sulfate (Morphine) 1 mg IVP Q4H PRN PRN Reason: Pain, severe (8-10) Last Admin: 09/02/17 19:56 Dose: 1 mg Mycophenolate Mofetil (Cellcept) 500 mg PO BID [facility] Last Admin: 09/02/17 19:00 Dose: 500 mg Cjjbo-0-Eqsi Ethyl Esters (Lovaza) 1 gm PO BID [facility] Last Admin: 09/02/17 19:00 Dose: 1 gm Prednisone (Prednisone Tab) 5 mg PO DAILY [facility] Last Admin: 09/02/17 10:57 Dose: 5 mg Rosuvastatin Calcium (Crestor) 20 mg PO HS [facility] Last Admin: 09/01/17 21:22 Dose: 20 mg Trimethoprim/Sulfamethoxazole (Bactrim Ss Tab) 1 tab PO DAILY [facility] Last Admin: 09/02/17 10:54 Dose: 1 tab - Labs Labs: 09/02/17 08:07 09/02/17 08:07 PT 11.9 SECONDS (9.7-12.2) 08/30/17 07:59 INR 1.1 08/30/17 07:59 APTT 23 SECONDS (21-34) 08/30/17 07:59 Assessment and Plan - Assessment and Plan (Free Text) Assessment: (1) Syncope and collapse Assessment and Plan: Patient with altered mental status for 30 minutes, unlikely cardiac ECHO: Normal EF Carotids normal Trop x 3 negative Tilt table test tomorrow. Stress test cancelled (Patient and daughter not comfortable with the stress test) Patient will likely need neuro evaluation (2) Multiple contusions Assessment and Plan: Lidoderm patch, Tylenol and Morphine Prn Physical and occupational therapy, patient need to [facility] after discharge. Status: Acute Priority: High (3) Anemia Assessment and Plan: Hbg is 9.2, which is well below her baseline. Will do anemia work up, Rectic count, iron studies, B12, and folate, and also stool ob x3. Status: Acute Priority: High (4) UTI (urinary tract infection) Assessment and Plan: UA showed +3 LE as wells aso RBCs and WBCs, started Cipro 200mg IV q12h due to renal insufficiency and Amoxicillin allergy. Follow up blood and urine culture. Status: Acute Priority: High (5) HTN (hypertension) Assessment and Plan: Norvasc 5mg Lopressor 50mg bid Status: Chronic Priority: Medium (6) Hyperlipidemia Assessment and Plan: Statin, follow up lipid panel also continue Lovaza Status: Chronic Priority: Medium (7) History of kidney transplant Assessment and Plan: Patient is on several medication such as cylcosporine 75mg and 50mg HS, Cellcept 500mg bid, prednisone 5mg, and also Bactrim DS once a day for prophylaxis. Consulted patient's economic research analyst Dr. Bai Status: Chronic (8) Prophylactic measure Assessment and Plan: Will hold VTE due to anemia and recent head trauma , and also old SCD due to lower extremity injury Pepcid 20mg daily. Status: Acute Priority: Medium
[2017-09-03] MEDS: Ciprofloxacin 200mg/100ml D5W 100 ML IVPB SCH (02:30)
[2017-09-03] MEDS: guaiFENesin 100 mg/5 ml Syrup UD PO PRN (05:27)
[2017-09-03 07:22] LABS: BASO % 0.3 % (0.0-2.0); EOS % 0.6 % (0.0-4.0); HEMATOCRIT 25.3 % (34.0-47.0); LYMPH # 1.2 K/uL (1.0-4.3); LYMPH % 19.3 % (20.0-40.0); MEAN CELL VOLUME 81.2 fL (81.0-99.0); MEAN CORPUSCULAR HEMOGLOBIN 27.2 pg (27.0-31.0); MEAN CORPUSCULAR HGB CONC 33.5 g/dL (33.0-37.0); MEAN PLATELET VOLUME 7.6 fL (7.2-11.7); MONO # 0.7 K/uL (0.0-0.8); MONO % 11.5 % (0.0-10.0); NRBC % 0.1 % (0.0-2.0); RED CELL DISTRIBUTION WIDTH 14.7 % (11.5-14.5); WHITE BLOOD COUNT 6.3 K/uL (4.8-10.8)
[2017-09-03 07:42] LABS: ALB/GLOB RATIO 1.1 (1.0-2.1); BILIRUBIN,TOTAL 0.9 mg/dL (0.2-1.3); TOTAL PROTEIN 5.6 g/dL (6.3-8.3)
[2017-09-03 07:43] LABS: CALCIUM 8.4 mg/dl (8.6-10.4); MAGNESIUM 1.8 mg/dL (1.6-2.3); PHOSPHOROUS 2.7 mg/dL (2.5-4.5)
--- NOTE | 2017-09-03 09:41 | CP.PCM.PN ---
Subjective - Date & Time of Evaluation Date of Evaluation: 09/03/17 Time of Evaluation: 09:00 Objective - Vital Signs/Intake and Output Vital Signs (last 24 hours): Temp Pulse Resp BP Pulse Ox 99.5 F 80 20 125/66 95 09/03/17 07:00 09/03/17 07:00 09/03/17 07:00 09/03/17 07:00 09/03/17 07:00 Intake and Output: 09/03/17 09/03/17 06:59 18:59 Intake Total 320 Output Total 150 Balance 170 - Medications Medications: Current Medications Acetaminophen (Tylenol 325mg Tab) 650 mg PO Q6 PRN PRN Reason: Pain, moderate (4-7) Amlodipine Besylate (Norvasc) 5 mg PO Q24H [facility] Last Admin: 09/02/17 19:00 Dose: 5 mg Cyclosporine (Cyclosporine) 50 mg PO HS [facility] Last Admin: 09/02/17 22:15 Dose: 50 mg Cyclosporine (Cyclosporine) 75 mg PO DAILY [facility] Last Admin: 09/02/17 10:54 Dose: 75 mg Docusate Sodium (Colace) 100 mg PO BID [facility] Last Admin: 09/02/17 19:00 Dose: 100 mg Famotidine (Pepcid) 20 mg PO DAILY [facility] Last Admin: 09/02/17 10:55 Dose: 20 mg Guaifenesin (Robitussin) 100 mg PO Q4H PRN PRN Reason: Cough Last Admin: 09/03/17 05:27 Dose: 100 mg Ciprofloxacin (Cipro 200mg/100ml D5w) 100 mls @ 67 mls/hr IVPB Q12H [facility] Last Admin: 09/03/17 02:30 Dose: 67 mls/hr Lidocaine (Lidoderm) 1 ea TD DAILY [facility] Last Admin: 09/02/17 10:55 Dose: 1 ea Metoprolol Succinate (Toprol Xl) 50 mg PO BID [facility] Last Admin: 09/02/17 19:00 Dose: 50 mg Morphine Sulfate (Morphine) 1 mg IVP Q4H PRN PRN Reason: Pain, severe (8-10) Last Admin: 09/03/17 05:29 Dose: 1 mg Mycophenolate Mofetil (Cellcept) 500 mg PO BID [facility] Last Admin: 09/02/17 19:00 Dose: 500 mg Ikagh-2-Gmqc Ethyl Esters (Lovaza) 1 gm PO BID [facility] Last Admin: 09/02/17 19:00 Dose: 1 gm Prednisone (Prednisone Tab) 5 mg PO DAILY [facility] Last Admin: 09/02/17 10:57 Dose: 5 mg Rosuvastatin Calcium (Crestor) 20 mg PO HS [facility] Last Admin: 09/02/17 22:15 Dose: 20 mg Trimethoprim/Sulfamethoxazole (Bactrim Ss Tab) 1 tab PO DAILY [facility] Last Admin: 09/02/17 10:54 Dose: 1 tab - Labs Labs: 09/03/17 07:14 09/03/17 07:14 PT 11.9 SECONDS (9.7-12.2) 08/30/17 07:59 INR 1.1 08/30/17 07:59 APTT 23 SECONDS (21-34) 08/30/17 07:59
[2017-09-03] MEDS ORDERED: Influenza Vaccine 60 mcg/0.5 mL SYR (4YR UP) IM ONE (10:00)
--- NOTE | 2017-09-03 11:06 | CP.PCM.PN ---
Subjective - Date & Time of Evaluation Date of Evaluation: 09/03/17 Time of Evaluation: 11:03 - Subjective Subjective: Patient still complaining of a lot of pain, especially in right shoulder and right knee. Objective - Vital Signs/Intake and Output Vital Signs (last 24 hours): Temp Pulse Resp BP Pulse Ox 99.5 F 80 20 125/66 95 09/03/17 07:00 09/03/17 07:00 09/03/17 07:00 09/03/17 07:00 09/03/17 07:00 Intake and Output: 09/03/17 09/03/17 06:59 18:59 Intake Total 320 Output Total 150 Balance 170 - Medications Medications: Current Medications Acetaminophen (Tylenol 325mg Tab) 650 mg PO Q6 PRN PRN Reason: Pain, moderate (4-7) Amlodipine Besylate (Norvasc) 5 mg PO Q24H [facility] Last Admin: 09/02/17 19:00 Dose: 5 mg Cyclosporine (Cyclosporine) 50 mg PO HS [facility] Last Admin: 09/02/17 22:15 Dose: 50 mg Cyclosporine (Cyclosporine) 75 mg PO DAILY [facility] Last Admin: 09/02/17 10:54 Dose: 75 mg Docusate Sodium (Colace) 100 mg PO BID [facility] Last Admin: 09/02/17 19:00 Dose: 100 mg Famotidine (Pepcid) 20 mg PO DAILY [facility] Last Admin: 09/02/17 10:55 Dose: 20 mg Guaifenesin (Robitussin) 100 mg PO Q4H PRN PRN Reason: Cough Last Admin: 09/03/17 05:27 Dose: 100 mg Ciprofloxacin (Cipro 200mg/100ml D5w) 100 mls @ 67 mls/hr IVPB Q12H [facility] Last Admin: 09/03/17 02:30 Dose: 67 mls/hr Lidocaine (Lidoderm) 1 ea TD DAILY [facility] Last Admin: 09/02/17 10:55 Dose: 1 ea Metoprolol Succinate (Toprol Xl) 50 mg PO BID [facility] Last Admin: 09/02/17 19:00 Dose: 50 mg Morphine Sulfate (Morphine) 1 mg IVP Q4H PRN PRN Reason: Pain, severe (8-10) Last Admin: 09/03/17 05:29 Dose: 1 mg Mycophenolate Mofetil (Cellcept) 500 mg PO BID [facility] Last Admin: 10/08/17 19:00 Dose: 500 mg Xwbjk-6-[id number] Ethyl Esters (Lovaza) 1 gm PO BID [facility] Last Admin: 09/02/17 19:00 Dose: 1 gm Prednisone (Prednisone Tab) 5 mg PO DAILY [facility] Last Admin: 09/02/17 10:57 Dose: 5 mg Rosuvastatin Calcium (Crestor) 20 mg PO HS [facility] Last Admin: 09/02/17 22:15 Dose: 20 mg Trimethoprim/Sulfamethoxazole (Bactrim Ss Tab) 1 tab PO DAILY [facility] Last Admin: 09/02/17 10:54 Dose: 1 tab - Labs Labs: 09/03/17 07:14 09/03/17 07:14 PT 11.9 SECONDS (9.7-12.2) 08/30/17 07:59 INR 1.1 08/30/17 07:59 APTT 23 SECONDS (21-34) 08/30/17 07:59 - Extremities Exam Additional comments: RUE: noted ecchymosis and discoloration, +ROM wrist/fingers, pain with attempts at right shoulder ROM, sensation intact + radial pulse RLE: diffuse swelling and ecchymosis to medial knee, [id number] blood filled tension blister to same. no laxity to varus/valgus. Pain with attempts to flex knee more than 30 degrees. Skin intact, blister intact. No scars, patient denies prior cut to injury to knee to explain soft tissue calcifications on xray. Calves soft Nt neg homans PT note appreciated Assessment and Plan (1) Multiple contusions Assessment & Plan: right shoulder xrays neg for fx/dislocation PT/OT encourage OOB, ROM rehab referral Status: Acute (2) Contusion of right knee Assessment & Plan: xray negative for fracture, noted calcifications in anterior soft tissues CT scan r/o occult fx knee immobilizer to help with rest/pain/ambulation d/w Dr. Faustin, agrees with above Status: Acute Radiology Interpretation - Radiology Interpretation #3 Interpretation: atient Name / ID : REZA Mukherjee / [id number] Exam Date : 09/01/2017 16:47:49 ( Approved ) Study Comment : Sex / Age : F / 71Y Creator : Dalton Sher MD Dictator : Dalton Sher MD Funeral Arrangement Director : Financial Foundations Representative : Dalton Sher MD Approver2 : Report Date : 09/01/2017 17:10:54 My Comment : PROCEDURE: Right Knee Radiographs. HISTORY: s/p fall COMPARISON: None. FINDINGS: BONES: No acute fractures. JOINTS: Severe medial compartment narrowing. JOINT EFFUSION: Small suprapatellar joint effusion. OTHER FINDINGS: Diffuse soft tissue swelling. IMPRESSION: Soft tissue swelling without acute articular or osseous abnormality.
[2017-09-03] MEDS: Lidocaine 5% Patch TD SCH (11:14)
[2017-09-03] MEDS: Metoprolol Succinate 50 mg XL Tab PO SCH ×2 (11:15→17:56)
[2017-09-03] MEDS: Omega-3-Acid Ethyl Esters 1 GM Cap PO SCH ×2 (11:16→18:00)
[2017-09-03] MEDS: Tmp-Smz 400 mg-80 mg SS Tab PO SCH (11:18)
[2017-09-03] MEDS: CYCLOSPORINE, MODIFIED 25 MG CAP PO SCH ×2 (11:20→22:38)
--- NOTE | 2017-09-03 12:59 | CP.PCM.PN ---
Subjective - Date & Time of Evaluation Date of Evaluation: 09/03/17 Time of Evaluation: 12:56 - Subjective Subjective: Alert; NAD c/o diffuse pains from fall No fxs seen on XRs Creat stable at 1.4- likely baseline No f, c, n, v, HAs, SOB, CPs Objective - Vital Signs/Intake and Output Vital Signs (last 24 hours): Temp Pulse Resp BP Pulse Ox 99.5 F 80 20 125/66 95 09/03/17 07:00 09/03/17 07:00 09/03/17 07:00 09/03/17 07:00 09/03/17 07:00 Intake and Output: 09/03/17 09/03/17 06:59 18:59 Intake Total 320 Output Total 150 Balance 170 - Medications Medications: Current Medications Acetaminophen (Tylenol 325mg Tab) 650 mg PO Q6 PRN PRN Reason: Pain, moderate (4-7) Amlodipine Besylate (Norvasc) 5 mg PO Q24H [facility] Last Admin: 09/02/17 19:00 Dose: 5 mg Cyclosporine (Cyclosporine) 50 mg PO HS [facility] Last Admin: 09/02/17 22:15 Dose: 50 mg Cyclosporine (Cyclosporine) 75 mg PO DAILY [facility] Last Admin: 09/03/17 11:20 Dose: 75 mg Docusate Sodium (Colace) 100 mg PO BID [facility] Last Admin: 09/03/17 11:15 Dose: 100 mg Famotidine (Pepcid) 20 mg PO DAILY [facility] Last Admin: 09/03/17 11:16 Dose: 20 mg Guaifenesin (Robitussin) 100 mg PO Q4H PRN PRN Reason: Cough Last Admin: 09/03/17 05:27 Dose: 100 mg Ciprofloxacin (Cipro 200mg/100ml D5w) 100 mls @ 67 mls/hr IVPB Q12H [facility] Last Admin: 09/03/17 02:30 Dose: 67 mls/hr Lidocaine (Lidoderm) 1 ea TD DAILY [facility] Last Admin: 09/03/17 11:14 Dose: 1 ea Metoprolol Succinate (Toprol Xl) 50 mg PO BID [facility] Last Admin: 09/03/17 11:15 Dose: 50 mg Morphine Sulfate (Morphine) 1 mg IVP Q4H PRN PRN Reason: Pain, severe (8-10) Last Admin: 09/03/17 05:29 Dose: 1 mg Mycophenolate Mofetil (Cellcept) 500 mg PO BID [facility] Last Admin: 09/03/17 11:17 Dose: 500 mg Ybiag-1-Xcqy Ethyl Esters (Lovaza) 1 gm PO BID [facility] Last Admin: 09/03/17 11:16 Dose: 1 gm Prednisone (Prednisone Tab) 5 mg PO DAILY [facility] Last Admin: 09/03/17 11:15 Dose: 5 mg Rosuvastatin Calcium (Crestor) 20 mg PO HS [facility] Last Admin: 09/02/17 22:15 Dose: 20 mg Trimethoprim/Sulfamethoxazole (Bactrim Ss Tab) 1 tab PO DAILY [facility] Last Admin: 09/03/17 11:18 Dose: 1 tab - Labs Labs: 09/03/17 07:14 09/03/17 07:14 PT 11.9 SECONDS (9.7-12.2) 08/30/17 07:59 INR 1.1 08/30/17 07:59 APTT 23 SECONDS (21-34) 08/30/17 07:59 - Constitutional Appears: No Acute Distress, Chronically Ill - Head Exam Head Exam: ATRAUMATIC, NORMAL INSPECTION - Eye Exam Eye Exam: EOMI, Normal appearance - Neck Exam Neck Exam: Normal Inspection. absent: Tenderness - Respiratory Exam Respiratory Exam: Clear to Ausculation Bilateral, NORMAL BREATHING PATTERN - Cardiovascular Exam Cardiovascular Exam: REGULAR RHYTHM, +S1 - GI/Abdominal Exam GI & Abdominal Exam: Soft. absent: Tenderness - Extremities Exam Extremities Exam: Normal Inspection. absent: Tenderness - Neurological Exam Neurological Exam: Awake, CN II-XII Intact - Skin Skin Exam: Dry, Rash, Warm Assessment and Plan (1) Syncope and collapse Status: Acute (2) HTN (hypertension) Status: Chronic (3) History of kidney transplant Status: Chronic (4) Hyperlipidemia Status: Chronic - Assessment and Plan (Free Text) Plan: Continue same immunosuppressants Monitor renal function might need rehab? check CSA level
--- NOTE | 2017-09-03 15:24 | CT ---
PROCEDURE: CT right knee HISTORY: right knee pain, soft tissue calcification COMPARISON: Not available TECHNIQUE: 2.5 mm contiguous axial sections were acquired through the right knee. Sagittal and coronal images were reformatted from the axial scan. FINDINGS: There is no evidence of fracture. There is no lytic or blastic osseous lesion. There is tricompartmental osteoarthritis most prominently involving the medial joint compartment. There are no articular erosions. There is subchondral sclerosis in the medial femoral and tibial condyles. There is a small joint effusion/hemarthrosis. There is a small popliteal cyst. There is ecchymosis involving the skin and subcutaneous soft tissues over the anteromedial aspect of the left knee. IMPRESSION: No acute fracture. Osteoarthritis. Minimal effusion and small popliteal cyst.
--- NOTE | 2017-09-03 15:31 | CP.PCM.DIS ---
Provider - Provider Date of Admission: 09/01/17 10:29 Attending physician: Manuel Payne Jr, MD Hospital Course - Lab Results Lab Results: Micro Results 08/30/17 17:00 Blood-Venous Blood Culture - Preliminary NO GROWTH AFTER 3 DAYS 08/30/17 16:30 Blood-Venous Blood Culture - Preliminary NO GROWTH AFTER 3 DAYS Most Recent Lab Values WBC 6.3 K/uL (4.8-10.8) 09/03/17 07:14 RBC 3.11 Mil/uL (3.80-5.20) L 09/03/17 07:14 Hgb 8.5 g/dL (11.0-16.0) L 09/03/17 07:14 Hct 25.3 % (34.0-47.0) L 09/03/17 07:14 MCV 81.2 fL (81.0-99.0) 09/03/17 07:14 MCH 27.2 pg (27.0-31.0) 09/03/17 07:14 MCHC 33.5 g/dL (33.0-37.0) 09/03/17 07:14 RDW 14.7 % (11.5-14.5) H 09/03/17 07:14 Plt Count 147 K/uL (130-400) 09/03/17 07:14 MPV 7.6 fL (7.2-11.7) 09/03/17 07:14 Neut % (Auto) 68.3 % (50.0-75.0) 09/03/17 07:14 Lymph % (Auto) 19.3 % (20.0-40.0) L 09/03/17 07:14 [place] % (Auto) 11.5 % (0.0-10.0) H 09/03/17 07:14 Eos % (Auto) 0.6 % (0.0-4.0) 09/03/17 07:14 Baso % (Auto) 0.3 % (0.0-2.0) 09/03/17 07:14 Neut # 4.3 K/uL (1.8-7.0) 09/03/17 07:14 Lymph # 1.2 K/uL (1.0-4.3) 09/03/17 07:14 [place] # 0.7 K/uL (0.0-0.8) 09/03/17 07:14 Eos # 0.0 K/uL (0.0-0.7) 09/03/17 07:14 Baso # 0.0 K/uL (0.0-0.2) 09/03/17 07:14 Retic Count 1.8 % (0.5-1.5) H 08/31/17 07:20 PT 11.9 SECONDS (9.7-12.2) 08/30/17 07:59 INR 1.1 08/30/17 07:59 APTT 23 SECONDS (21-34) 08/30/17 07:59 Sodium 135 mmol/L (132-148) 09/03/17 07:14 Potassium 4.0 mmol/L (3.6-5.2) 09/03/17 07:14 Chloride 103 mmol/L (98-107) 09/03/17 07:14 Carbon Dioxide 22 mmol/L (22-30) 09/03/17 07:14 Anion Gap 14 (10-20) 09/03/17 07:14 BUN 22 mg/dL (7-17) H 09/03/17 07:14 Creatinine 1.4 mg/dL (0.7-1.2) H 09/03/17 07:14 Est GFR ( Amer) 45 09/03/17 07:14 Est GFR (Non-Af Amer) 37 09/03/17 07:14 POC Glucose (mg/dL) 156 mg/dL (65-110) H 09/03/17 11:47 Random Glucose 93 mg/dL (65-105) 09/03/17 07:14 Calcium 8.4 mg/dl (8.6-10.4) L 09/03/17 07:14 Phosphorus 2.7 mg/dL (2.5-4.5) 09/03/17 07:14 Magnesium 1.8 mg/dL (1.6-2.3) 09/03/17 07:14 Iron 13 ug/dL (37-170) L 08/30/17 16:58 TIBC 236 ug/dL (250-450) L 08/30/17 16:58 % Saturation 5 (20-55) L 08/30/17 16:58 Transferrin 158.31 mg/dL (206-381) L 08/31/17 07:20 Ferritin 197.0 ng/mL 08/31/17 07:20 Total Bilirubin 0.9 mg/dL (0.2-1.3) 09/03/17 07:14 AST 41 U/L (14-36) H 09/03/17 07:14 ALT 47 U/L (9-52) 09/03/17 07:14 Alkaline Phosphatase 40 U/L (38-126) 09/03/17 07:14 Total Creatine Kinase 586 U/L (30-135) H 08/30/17 16:58 Troponin I 0.0500 ng/mL (0.00-0.120) 08/31/17 00:18 Total Protein 5.6 g/dL (6.3-8.3) L 09/03/17 07:14 Albumin 3.0 g/dL (3.5-5.0) L 09/03/17 07:14 Globulin 2.6 gm/dL (2.2-3.9) 09/03/17 07:14 Albumin/Globulin Ratio 1.1 (1.0-2.1) 09/03/17 07:14 Triglycerides 159 mg/dL (0-149) H 08/31/17 07:20 Cholesterol 119 mg/dL (0-199) 08/31/17 07:20 LDL Cholesterol Direct 39 mg/dL (0-129) 08/31/17 07:20 HDL Cholesterol 52 mg/dL (30-70) 08/31/17 07:20 Vitamin B12 338 pg/mL (239-931) 08/31/17 07:20 25-OH Vitamin D Total 34.4 NG/ML (30.0-100.0) 09/01/17 13:59 Folate > 20.0 ng/mL 08/31/17 07:20 Free T4 1.21 ng/dL (0.78-2.19) 08/31/17 07:20 TSH 3rd Generation 0.71 mIU/L (0.46-4.68) 08/31/17 07:20 Urine Color Yellow (YELLOW) 08/30/17 11:22 Urine Clarity Clear (Clear) 08/30/17 11:22 Urine pH 5.0 (5.0-8.0) 08/30/17 11:22 Ur Specific Can[place] 1.014 (1.003-1.030) 08/30/17 11:22 Urine Protein 1+ mg/dL (NEGATIVE) H 08/30/17 11:22 Urine Glucose (UA) Normal mg/dL (Normal) 08/30/17 11:22 Urine Ketones Negative mg/dL (NEGATIVE) 08/30/17 11:22 Urine Blood 1+ (NEGATIVE) H 08/30/17 11:22 Urine Nitrate Negative (NEGATIVE) 08/30/17 11:22 Urine Bilirubin Negative (NEGATIVE) 08/30/17 11:22 Urine Urobilinogen Normal mg/dL (0.2-1.0) 08/30/17 11:22 Ur Leukocyte Esterase 3+ Malu/uL (Negative) H 08/30/17 11:22 Urine WBC (Auto) 12 /hpf (0-5) H 08/30/17 11:22 Urine RBC (Auto) 8 /hpf (0-3) H 08/30/17 11:22 Ur Squamous Epith Cells 1 /hpf (0-5) 08/30/17 11:22 Stool Occult Blood Negative (NEGATIVE) 09/02/17 03:03 Blood Type A POSITIVE 08/30/17 07:59 Antibody Screen Negative 08/30/17 07:59 Discharge Exam - Head Exam Head Exam: ATRAUMATIC, NORMAL INSPECTION Discharge Plan - Discharge Medications Prescriptions: Ciprofloxacin HCl [Cipro] 250 mg PO BID 7 Days #14 tablet - Follow Up Plan Condition: STABLE Disposition: REHAB FACILITY/REHAB UNIT Referrals: Mikel Alvarez MD [Staff Provider] - Manuel Payne Jr., MD [Medical Doctor] -
--- NOTE | 2017-09-03 17:43 | PROCN ---
TILT-TABLE TEST REPORT DATE: 09/03/2017 INDICATION: Syncope. PROOF CARRIER: Cydney Anglin MD The patient was put on the table and tilted at 30 degrees for 5 minutes and 60 degrees for 15 minutes. Blood pressure and heart rate response were monitored every minute. The patient tolerated the procedure well. No symptoms were reported during the test. IMPRESSION: Appropriate blood pressure and heart rate response during the tilt-table test. Asymptomatic throughout the test. Cydney Anglin MD
--- NOTE | 2017-09-03 18:20 | CP.PCM.PN ---
Subjective - Date & Time of Evaluation Date of Evaluation: 09/03/17 Time of Evaluation: 11:00 - Subjective Subjective: PGY-[address] Payne Patient seen and examined at bedside. Patient states that she feels a bit better than yesterday. Patient complains of continued right shoulder pain. Patient denies fever, chills, abdominal pain, dysuria. Objective - Vital Signs/Intake and Output Vital Signs (last 24 hours): Temp Pulse Resp BP Pulse Ox 98.2 F 84 18 135/69 95 09/03/17 15:16 09/03/17 15:16 09/03/17 15:16 09/03/17 15:16 09/03/17 15:16 Intake and Output: 09/03/17 09/03/17 06:59 18:59 Intake Total 320 600 Output Total 150 Balance 170 600 - Medications Medications: Current Medications Acetaminophen (Tylenol 325mg Tab) 650 mg PO Q6 PRN PRN Reason: Pain, moderate (4-7) Amlodipine Besylate (Norvasc) 5 mg PO Q24H [facility] Last Admin: 09/03/17 17:55 Dose: 5 mg Ciprofloxacin (Cipro) 250 mg PO BID [facility] Stop: 09/10/17 18:01 Last Admin: 09/03/17 17:55 Dose: 250 mg Cyclosporine (Cyclosporine) 50 mg PO HS [facility] Last Admin: 09/02/17 22:15 Dose: 50 mg Cyclosporine (Cyclosporine) 75 mg PO DAILY [facility] Last Admin: 09/03/17 11:20 Dose: 75 mg Docusate Sodium (Colace) 100 mg PO BID [facility] Last Admin: 09/03/17 17:55 Dose: 100 mg Famotidine (Pepcid) 20 mg PO DAILY [facility] Last Admin: 09/03/17 11:16 Dose: 20 mg Guaifenesin (Robitussin) 100 mg PO Q4H PRN PRN Reason: Cough Last Admin: 09/03/17 05:27 Dose: 100 mg Lidocaine (Lidoderm) 1 ea TD DAILY [facility] Last Admin: 09/03/17 11:14 Dose: 1 ea Metoprolol Succinate (Toprol Xl) 50 mg PO BID [facility] Last Admin: 09/03/17 17:56 Dose: 50 mg Mycophenolate Mofetil (Cellcept) 500 mg PO BID [facility] Last Admin: 09/03/17 17:55 Dose: 500 mg [id number] Ethyl Esters (Lovaza) 1 gm PO BID [facility] Last Admin: 09/03/17 11:16 Dose: 1 gm Prednisone (Prednisone Tab) 5 mg PO DAILY [facility] Last Admin: 09/03/17 11:15 Dose: 5 mg Rosuvastatin Calcium (Crestor) 20 mg PO HS [facility] Last Admin: 09/02/17 22:15 Dose: 20 mg Trimethoprim/Sulfamethoxazole (Bactrim Ss Tab) 1 tab PO DAILY [facility] Last Admin: 09/03/17 11:18 Dose: 1 tab - Labs Labs: 09/03/17 07:14 09/03/17 07:14 PT 11.9 SECONDS (9.7-12.2) 08/30/17 07:59 INR 1.1 08/30/17 07:59 APTT 23 SECONDS (21-34) 08/30/17 07:59 - Constitutional Appears: No Acute Distress - Head Exam Head Exam: NORMOCEPHALIC. absent: ATRAUMATIC (bruising on the right side of the face with improving right periorbital swelling) - Eye Exam Eye Exam: EOMI, PERRL - ENT Exam ENT Exam: Mucous Membranes Moist - Respiratory Exam Respiratory Exam: Chest Wall Tenderness (s/p multiple falls), Clear to Ausculation Bilateral. absent: Rales, Rhonchi, Wheezes - Cardiovascular Exam Cardiovascular Exam: REGULAR RHYTHM, +S1, +S2 - GI/Abdominal Exam GI & Abdominal Exam: Soft, Normal Bowel Sounds. absent: Tenderness - Extremities Exam Extremities Exam: Joint Swelling (right knee swelling and tenderness), Pedal Edema (trace edema bilaterally) Additional comments: ecchymosis and soft tissue swelling of right lower extremity, skin warm to touch. Immobilizer brace in place - Neurological Exam Neurological Exam: Alert, Awake, Oriented x3 - Psychiatric Exam Psychiatric exam: Normal Affect, Normal Mood - Skin Skin Exam: Dry, Intact, Warm Assessment and Plan - Assessment and Plan (Free Text) Plan: Fall Consider cardiac vs neurological vs mechanical cause EKG showed sinus arrhythmia--premature atrial contractions ROMIs negative x3 Cardiology consulted, Dr. Alvarez. Help appreciated life specialist showing NSR Carotid doppler- normal findings ECHO- LV EF normal, mild TR, mild , mild MS F/u orthostatic vitals Fall precautions CPK elevated 586 Vitamin D level WNL PT/OT ordered- recommended [facility] on discharge, plan to dc to [facility] once patient stable Tilt table test unremarkable Carotid doppler preliminary report--normal finding Multiple contusions Lidoderm patch TD daily Tylenol 350mg PO q6h prn mild pain Morphine 1mg IV q4h prn moderate pain Dr. Faustin orthopedic consult for right shoulder pain s/p fall. Help appreciated. CT head negative for acute bleed CT chest negative for fracture CT RLE negative for acute fracture Per orthopedic recommendation, immobilizer brace for RLE placed. They recommended just rehab for the RUE. No surgical intervention at this time. Anemia On admission was 9.6 which was below patient's baseline Iron studies demonstrate low transferrin UTI (urinary tract infection) UA showed +3 LE as wells aso RBCs and WBCs started Cipro 200mg IV q12h due to renal insufficiency and Amoxicillin allergy. Afebrile, no leukocytosis blood cultures negative x48 hours F/u urine cultures Constipation Colace 100mg PO BID Given Dulcolax PO x1 Monitor for bowel movement HTN (hypertension) Well controlled Norvasc 5mg PO daily Toprol XL 50mg bid Hyperlipidemia Home statin Lipitor switched to formulary on hand. Crestor 20 mg HS lipid panel demonstrates borderline elevated Triglycerides continue home Lovaza Liver hyperdensity CT Chest- incidental finding of left lobe liver hyperdensity 3.6cm Will f/u with CT abdomen/pelvis or MRI without contrast once patient stable to assess etiology History of kidney transplant Restarted home meds: * cylcosporine 75mg PO daily * cyclosporine 50 mg PO HS * Cellcept 500 mg PO BID * Prednisone 5 mg PO daily * Bactrim DS once a day for prophylaxis. Consulted patient's surveillance director Dr. Stokes- help appreciated Prophylactic measure VTE held due to anemia and recent trauma SCD held due to lower extremity injury Pepcid 20mg daily. Case DW Dr. Kerry Sandhu PGY-1
--- NOTE | 2017-09-03 21:48 | CP.PCM.PN ---
Subjective - Date & Time of Evaluation Date of Evaluation: 09/03/17 Time of Evaluation: 11:50 - Subjective Subjective: Patient seen and evaluated No new events noted Comfortable Review of Systems - Review of Systems All systems: reviewed and no additional remarkable complaints except - Constitutional Constitutional: absent: Chills, Fever - EENT Eyes: absent: Change in Vision Ears: absent: Dizziness - Cardiovascular Cardiovascular: Chest Pain, Syncope. absent: Dyspnea, Palpitations, Radiating Pain - Respiratory Respiratory: absent: Cough, Dyspnea, Wheezing - Gastrointestinal Gastrointestinal: absent: Abdominal Pain, Constipation, Diarrhea, Nausea, Vomiting - Genitourinary Genitourinary: absent: Dysuria - Musculoskeletal Musculoskeletal: Limited Range of Motion, Muscle Weakness, Myalgias. absent: Back Pain, Joint Swelling, Numbness, Tingling - Neurological Neurological: Syncope, Weakness. absent: Convulsions, Dizziness, Numbness, Frequent Falls, Headaches, Memory Loss, Paresthesias, Sensory Deficit - Psychiatric Psychiatric: absent: Anxiety - Endocrine Endocrine: absent: Fatigue, Palpitations Physical Exam - Constitutional Appears: Non-toxic, No Acute Distress - Eye Exam Eye Exam: Normal appearance, PERRL. absent: Nystagmus, Scleral icterus Pupil Exam: NORMAL ACCOMODATION - ENT Exam ENT Exam: Mucous Membranes Moist, Normal Exam, Normal External Ear Exam, Normal Oropharynx, TM's Normal Bilaterally - Neck Exam Neck exam: Positive for: Normal Inspection - Respiratory Exam Respiratory Exam: Clear to Auscultation Bilateral. absent: Rales, Rhonchi, Wheezes - Cardiovascular Exam Cardiovascular Exam: REGULAR RHYTHM, RRR, +S1, +S2. absent: Gallop, Rubs - GI/Abdominal Exam GI & Abdominal Exam: Normal Bowel Sounds, Soft. absent: Guarding, Rebound, Tenderness - Extremities Exam Extremities exam: Positive for: pedal edema, tenderness. Negative for: normal inspection - Back Exam Back exam: absent: CVA tenderness (L), CVA tenderness (R) - Neurological Exam Neurological exam: Alert, Oriented x3 Additional comments: weaker on the right side both upper and lower extremity - Psychiatric Exam Psychiatric exam: Normal Affect, Normal Mood - Skin Skin Exam: Pallor Additional comments: Bruising on the face Objective - Vital Signs/Intake and Output Vital Signs (last 24 hours): Temp Pulse Resp BP Pulse Ox 98.2 F 84 18 135/69 95 09/03/17 15:16 09/03/17 15:16 09/03/17 15:16 09/03/17 15:16 09/03/17 15:16 Intake and Output: 09/03/17 09/04/17 18:59 06:59 Intake Total 600 Balance 600 - Medications Medications: Current Medications Acetaminophen (Tylenol 325mg Tab) 650 mg PO Q6 PRN PRN Reason: Pain, moderate (4-7) Last Admin: 09/03/17 20:18 Dose: 650 mg Amlodipine Besylate (Norvasc) 5 mg PO Q24H [facility] Last Admin: 09/03/17 17:55 Dose: 5 mg Ciprofloxacin (Cipro) 250 mg PO BID [facility] Stop: 09/10/17 18:01 Last Admin: 09/03/17 17:55 Dose: 250 mg Cyclosporine (Cyclosporine) 50 mg PO HS [facility] Last Admin: 09/02/17 22:15 Dose: 50 mg Cyclosporine (Cyclosporine) 75 mg PO DAILY [facility] Last Admin: 09/03/17 11:20 Dose: 75 mg Docusate Sodium (Colace) 100 mg PO BID [facility] Last Admin: 09/03/17 17:55 Dose: 100 mg Famotidine (Pepcid) 20 mg PO DAILY [facility] Last Admin: 09/03/17 11:16 Dose: 20 mg Guaifenesin (Robitussin) 100 mg PO Q4H PRN PRN Reason: Cough Last Admin: 09/03/17 05:27 Dose: 100 mg Lidocaine (Lidoderm) 1 ea TD DAILY [facility] Last Admin: 09/03/17 11:14 Dose: 1 ea Metoprolol Succinate (Toprol Xl) 50 mg PO BID [facility] Last Admin: 09/03/17 17:56 Dose: 50 mg Mycophenolate Mofetil (Cellcept) 500 mg PO BID [facility] Last Admin: 09/03/17 17:55 Dose: 500 mg [id number] Ethyl Esters (Lovaza) 1 gm PO BID [facility] Last Admin: 09/03/17 11:16 Dose: 1 gm Prednisone (Prednisone Tab) 5 mg PO DAILY [facility] Last Admin: 09/03/17 11:15 Dose: 5 mg Rosuvastatin Calcium (Crestor) 20 mg PO HS [facility] Last Admin: 09/02/17 22:15 Dose: 20 mg Trimethoprim/Sulfamethoxazole (Bactrim Ss Tab) 1 tab PO DAILY [facility] Last Admin: 09/03/17 11:18 Dose: 1 tab - Labs Labs: 09/03/17 07:14 09/03/17 07:14 PT 11.9 SECONDS (9.7-12.2) 08/30/17 07:59 INR 1.1 08/30/17 07:59 APTT 23 SECONDS (21-34) 08/30/17 07:59 Assessment and Plan - Assessment and Plan (Free Text) Assessment: Fall unlikely cardiac Consider cardiac vs neurological vs mechanical cause EKG showed sinus arrhythmia--premature atrial contractions ROMIs negative x3 Cardiology consulted, Dr. Alvarez. Help appreciated ekg monitor tech showing NSR Carotid doppler- normal findings ECHO- LV EF normal, mild TR, mild , mild MS F/u orthostatic vitals Fall precautions CPK elevated 586 Vitamin D level WNL PT/OT ordered- recommended [facility] on discharge, plan to dc to [facility] once patient stable Tilt table test unremarkable Carotid doppler preliminary report--normal finding Multiple contusions Lidoderm patch TD daily Tylenol 350mg PO q6h prn mild pain Morphine 1mg IV q4h prn moderate pain Dr. Faustin orthopedic consult for right shoulder pain s/p fall. Help appreciated. CT head negative for acute bleed CT chest negative for fracture CT RLE negative for acute fracture Per orthopedic recommendation, immobilizer brace for RLE placed. They recommended just rehab for the RUE. No surgical intervention at this time. Anemia On admission was 9.6 which was below patient's baseline Iron studies demonstrate low transferrin UTI (urinary tract infection) UA showed +3 LE as wells aso RBCs and WBCs started Cipro 200mg IV q12h due to renal insufficiency and Amoxicillin allergy. Afebrile, no leukocytosis blood cultures negative x48 hours F/u urine cultures Constipation Colace 100mg PO BID Given Dulcolax PO x1 Monitor for bowel movement HTN (hypertension) Well controlled Norvasc 5mg PO daily Toprol XL 50mg bid Hyperlipidemia Home statin Lipitor switched to formulary on hand. Crestor 20 mg HS lipid panel demonstrates borderline elevated Triglycerides continue home Lovaza Liver hyperdensity CT Chest- incidental finding of left lobe liver hyperdensity 3.6cm Will f/u with CT abdomen/pelvis or MRI without contrast once patient stable to assess etiology History of kidney transplant Restarted home meds: * cylcosporine 75mg PO daily * cyclosporine 50 mg PO HS * Cellcept 500 mg PO BID * Prednisone 5 mg PO daily * Bactrim DS once a day for prophylaxis. Consulted patient's family court justice Dr. Stokes- help appreciated Prophylactic measure VTE held due to anemia and recent trauma SCD held due to lower extremity injury Pepcid 20mg daily.
[2017-09-04 00:28] VITALS: RESP 20
[2017-09-04] MEDS: guaiFENesin 100 mg/5 ml Syrup UD PO PRN ×2 (05:54→12:15)
[2017-09-04 07:55] VITALS: BP 127/59; PULSE 82; O2SAT 94
[2017-09-04 08:33] LABS: BASO % 0.3 % (0.0-2.0); EOS % 0.6 % (0.0-4.0); HEMATOCRIT 25.5 % (34.0-47.0); LYMPH # 1.7 K/uL (1.0-4.3); LYMPH % 19.9 % (20.0-40.0); MEAN CELL VOLUME 80.3 fL (81.0-99.0); MEAN CORPUSCULAR HGB CONC 33.7 g/dL (33.0-37.0); MEAN PLATELET VOLUME 7.5 fL (7.2-11.7); MONO # 0.9 K/uL (0.0-0.8); MONO % 10.4 % (0.0-10.0); RED CELL DISTRIBUTION WIDTH 14.6 % (11.5-14.5); WHITE BLOOD COUNT 8.3 K/uL (4.8-10.8)
[2017-09-04 08:38] VITALS: TEMP 98.8
[2017-09-04 08:57] LABS: CALCIUM 8.7 mg/dl (8.6-10.4); MAGNESIUM 1.9 mg/dL (1.6-2.3); TOTAL PROTEIN 5.9 g/dL (6.3-8.3)
[2017-09-04] MEDS: Lidocaine 5% Patch TD SCH (09:27)
[2017-09-04] MEDS: Tmp-Smz 400 mg-80 mg SS Tab PO SCH (09:28)
[2017-09-04] MEDS: Metoprolol Succinate 50 mg XL Tab PO SCH (09:28)
[2017-09-04] MEDS: Omega-3-Acid Ethyl Esters 1 GM Cap PO SCH (09:29)
[2017-09-04] MEDS: CYCLOSPORINE, MODIFIED 25 MG CAP PO SCH (09:32)
--- NOTE | 2017-09-04 10:38 | VASCLAB ---
PROCEDURE: HISTORY: Syncope COMPARISON: None available. TECHNIQUE: Grayscale and duplex Doppler evaluation of the cervical carotid and vertebral arteries were performed. The common carotid, carotid bifurcations and cervical Internal Carotid Artery (ICA) and proximal External Carotid Artery (ECA) were evaluated. The vertebral arteries were evaluated for gross patency and flow direction. Report prepared by Consuelo Simental, BELLO, S FINDINGS: RIGHT CAROTID ARTERIES: 1. Common Carotid Artery: No significant focal plaque formation of the right common carotid artery. Maximum Peak Systolic velocity: 131 cm/sec: End-diastolic velocity 15 cm/sec. 2. Carotid Bifurcation: plaque formation. Maximum Peak Systolic velocity: 81 cm/sec: End-diastolic velocity 17 cm/sec. 3. Internal Carotid Artery: Plaque description: 3.1. Proximal Segment: Peak systolic velocity 65 cm/sec: End-diastolic velocity 19 cm/sec - % stenosis 0-15% 3.2. Middle Segment: Peak systolic velocity 73 cm/sec: End-diastolic velocity 16 cm/sec - % stenosis 0-15% 3.3. Distal Segment: Peak systolic velocity 63 cm/sec: End-diastolic velocity 18 cm/sec - % stenosis 0-15% 4. External Carotid Artery: No significant focal plaque formation. Peak systolic velocity 64 cm/sec 5. ICA/CCA Ratio: 0.9 LEFT CAROTID ARTERIES: 1. Common Carotid Artery: No significant focal plaque formation of the left common carotid artery. Maximum Peak Systolic velocity: 116 cm/sec: End-diastolic velocity 18 cm/sec. 2. Carotid Bifurcation: plaque formation. Maximum Peak Systolic velocity: 100 cm/sec: End-diastolic velocity 10 cm/sec. 3. Internal Carotid Artery: Plaque description: 3.1. Proximal Segment: Peak systolic velocity 62 cm/sec: End-diastolic velocity 14 cm/sec - % stenosis 0-15% 3.2. Middle Segment: Peak systolic velocity 69 cm/sec: End-diastolic velocity 15 cm/sec - % stenosis 0-15% 3.3. Distal Segment: Peak systolic velocity 73 cm/sec: End-diastolic velocity 22 cm/sec - % stenosis 0-15% 4. External Carotid Artery: No significant focal plaque formation. Peak systolic velocity 91 cm/sec 5. ICA/CCA Ratio: 1.3 VERTEBRAL ARTERIES: 1. Right Vertebral Artery: The right vertebral artery flow direction is antegrade. 2. Left Vertebral Artery: The left vertebral artery flow direction is antegrade. OTHER FINDINGS: IMPRESSION: RIGHT: Duplex scan does not suggest hemodynamically significant stenosis of the right extracranial carotid arteries. LEFT: Duplex scan does not suggest hemodynamically significant stenosis of the left extracranial carotid arteries. Tortuosity noted of bilateral common and internal carotid arteries.
--- NOTE | 2017-09-04 11:52 | CP.PCM.PN ---
Subjective - Date & Time of Evaluation Date of Evaluation: 09/04/17 Time of Evaluation: 11:51 - Subjective Subjective: seen and examined DEnies any nausea vomiting chest pain sob dizziness headache confusion fevers chills rash Objective - Vital Signs/Intake and Output Vital Signs (last 24 hours): Temp Pulse Resp BP Pulse Ox 98.8 F 82 20 127/59 L 94 L 09/04/17 08:38 09/04/17 07:00 09/04/17 07:00 09/04/17 07:00 09/04/17 07:00 Intake and Output: 09/04/17 09/04/17 06:59 18:59 Intake Total 150 Balance 150 - Medications Medications: Current Medications Acetaminophen (Tylenol 325mg Tab) 650 mg PO Q6 PRN PRN Reason: Pain, moderate (4-7) Last Admin: 09/04/17 09:31 Dose: 650 mg Amlodipine Besylate (Norvasc) 5 mg PO Q24H [facility] Last Admin: 09/03/17 17:55 Dose: 5 mg Ciprofloxacin (Cipro) 250 mg PO BID [facility] Stop: 09/10/17 18:01 Last Admin: 09/04/17 09:28 Dose: 250 mg Cyclosporine (Cyclosporine) 50 mg PO HS [facility] Last Admin: 09/03/17 22:38 Dose: 50 mg Cyclosporine (Cyclosporine) 75 mg PO DAILY [facility] Last Admin: 09/04/17 09:32 Dose: 75 mg Docusate Sodium (Colace) 100 mg PO BID [facility] Last Admin: 09/04/17 09:24 Dose: 100 mg Famotidine (Pepcid) 20 mg PO DAILY [facility] Last Admin: 09/04/17 09:28 Dose: 20 mg Guaifenesin (Robitussin) 100 mg PO Q4H PRN PRN Reason: Cough Last Admin: 09/04/17 05:54 Dose: 100 mg Lidocaine (Lidoderm) 1 ea TD DAILY [facility] Last Admin: 09/04/17 09:27 Dose: 1 ea Metoprolol Succinate (Toprol Xl) 50 mg PO BID [facility] Last Admin: 09/04/17 09:28 Dose: 50 mg Mycophenolate Mofetil (Cellcept) 500 mg PO BID [facility] Last Admin: 09/04/17 09:29 Dose: 500 mg [id number] Ethyl Esters (Lovaza) 1 gm PO BID [facility] Last Admin: 09/04/17 09:29 Dose: 1 gm Prednisone (Prednisone Tab) 5 mg PO DAILY [facility] Last Admin: 09/04/17 09:28 Dose: 5 mg Rosuvastatin Calcium (Crestor) 10 mg PO [facility] Trimethoprim/Sulfamethoxazole (Bactrim Ss Tab) 1 tab PO DAILY [facility] Last Admin: 09/04/17 09:28 Dose: 1 tab - Labs Labs: 09/04/17 08:22 09/04/17 08:22 PT 11.9 SECONDS (9.7-12.2) 08/30/17 07:59 INR 1.1 08/30/17 07:59 APTT 23 SECONDS (21-34) 08/30/17 07:59 Assessment and Plan (1) Renal failure treated with peritoneal dialysis Status: Acute (2) Anemia Status: Acute (3) Fall at home Status: Acute (4) Syncope and collapse Status: Acute (5) UTI (urinary tract infection) Status: Acute (6) History of kidney transplant Status: Chronic
--- NOTE | 2017-09-04 14:16 | CP.PCM.DIS ---
Provider - Provider Date of Admission: 09/01/17 10:29 Attending physician: Manuel Payne Jr, MD Consults: Dr. Alvarez-cardiology Dr. Faustin-orthopedic surgery Dr. Stokes-nephrology Time Spent in preparation of Discharge (in minutes): 35 Diagnosis - Discharge Diagnosis (1) Fall Status: Acute (2) Multiple contusions Status: Acute Priority: High (3) UTI (urinary tract infection) Status: Acute Priority: High (4) Constipation Status: Chronic (5) Anemia Status: Acute Priority: High (6) HTN (hypertension) Status: Chronic Priority: Medium (7) Hyperlipidemia Status: Chronic Priority: Medium (8) Prophylactic measure Status: Acute Priority: Medium Hospital Course - Lab Results Lab Results: Micro Results 08/30/17 17:00 Blood-Venous Blood Culture - Preliminary NO GROWTH AFTER 4 DAYS 08/30/17 16:30 Blood-Venous Blood Culture - Preliminary NO GROWTH AFTER 4 DAYS Most Recent Lab Values WBC 8.3 K/uL (4.8-10.8) 09/04/17 08:22 RBC 3.18 Mil/uL (3.80-5.20) L 09/04/17 08:22 Hgb 8.6 g/dL (11.0-16.0) L 09/04/17 08:22 Hct 25.5 % (34.0-47.0) L 09/04/17 08:22 MCV 80.3 fL (81.0-99.0) L 09/04/17 08:22 MCH 27.0 pg (27.0-31.0) 09/04/17 08:22 MCHC 33.7 g/dL (33.0-37.0) 09/04/17 08:22 RDW 14.6 % (11.5-14.5) H 09/04/17 08:22 Plt Count 166 K/uL (130-400) 09/04/17 08:22 MPV 7.5 fL (7.2-11.7) 09/04/17 08:22 Neut % (Auto) 68.8 % (50.0-75.0) 09/04/17 08:22 Lymph % (Auto) 19.9 % (20.0-40.0) L 09/04/17 08:22 [place] % (Auto) 10.4 % (0.0-10.0) H 09/04/17 08:22 Eos % (Auto) 0.6 % (0.0-4.0) 09/04/17 08:22 Baso % (Auto) 0.3 % (0.0-2.0) 09/04/17 08:22 Neut # 5.7 K/uL (1.8-7.0) 09/04/17 08:22 Lymph # 1.7 K/uL (1.0-4.3) 09/04/17 08:22 [place] # 0.9 K/uL (0.0-0.8) H 09/04/17 08:22 Eos # 0.0 K/uL (0.0-0.7) 09/04/17 08:22 Baso # 0.0 K/uL (0.0-0.2) 09/04/17 08:22 Retic Count 1.8 % (0.5-1.5) H 08/31/17 07:20 PT 11.9 SECONDS (9.7-12.2) 08/30/17 07:59 INR 1.1 08/30/17 07:59 APTT 23 SECONDS (21-34) 08/30/17 07:59 Sodium 138 mmol/L (132-148) 09/04/17 08:22 Potassium 4.0 mmol/L (3.6-5.2) 09/04/17 08:22 Chloride 103 mmol/L (98-107) 09/04/17 08:22 Carbon Dioxide 23 mmol/L (22-30) 09/04/17 08:22 Anion Gap 17 (10-20) 09/04/17 08:22 BUN 21 mg/dL (7-17) H 09/04/17 08:22 Creatinine 1.5 mg/dL (0.7-1.2) H 09/04/17 08:22 Est GFR ( Amer) 41 09/04/17 08:22 Est GFR (Non-Af Amer) 34 09/04/17 08:22 POC Glucose (mg/dL) 130 mg/dL (65-110) H 09/04/17 11:06 Random Glucose 86 mg/dL (65-105) 09/04/17 08:22 Calcium 8.7 mg/dl (8.6-10.4) 09/04/17 08:22 Phosphorus 3.0 mg/dL (2.5-4.5) 09/04/17 08:22 Magnesium 1.9 mg/dL (1.6-2.3) 09/04/17 08:22 Iron 13 ug/dL (37-170) L 08/30/17 16:58 TIBC 236 ug/dL (250-450) L 08/30/17 16:58 % Saturation 5 (20-55) L 08/30/17 16:58 Transferrin 158.31 mg/dL (206-381) L 08/31/17 07:20 Ferritin 197.0 ng/mL 08/31/17 07:20 Total Bilirubin 1.0 mg/dL (0.2-1.3) 09/04/17 08:22 AST 35 U/L (14-36) 09/04/17 08:22 ALT 48 U/L (9-52) 09/04/17 08:22 Alkaline Phosphatase 41 U/L (38-126) 09/04/17 08:22 Total Creatine Kinase 586 U/L (30-135) H 08/30/17 16:58 Troponin I 0.0500 ng/mL (0.00-0.120) 08/31/17 00:18 Total Protein 5.9 g/dL (6.3-8.3) L 09/04/17 08:22 Albumin 2.9 g/dL (3.5-5.0) L 09/04/17 08:22 Globulin 3.0 gm/dL (2.2-3.9) 09/04/17 08:22 Albumin/Globulin Ratio 1.0 (1.0-2.1) 09/04/17 08:22 Triglycerides 159 mg/dL (0-149) H 08/31/17 07:20 Cholesterol 119 mg/dL (0-199) 08/31/17 07:20 LDL Cholesterol Direct 39 mg/dL (0-129) 08/31/17 07:20 HDL Cholesterol 52 mg/dL (30-70) 08/31/17 07:20 Vitamin B12 338 pg/mL (239-931) 08/31/17 07:20 25-OH Vitamin D Total 34.4 NG/ML (30.0-100.0) 09/01/17 13:59 Folate > 20.0 ng/mL 08/31/17 07:20 Free T4 1.21 ng/dL (0.78-2.19) 08/31/17 07:20 TSH 3rd Generation 0.71 mIU/L (0.46-4.68) 08/31/17 07:20 Urine Color Yellow (YELLOW) 08/30/17 11:22 Urine Clarity Clear (Clear) 08/30/17 11:22 Urine pH 5.0 (5.0-8.0) 08/30/17 11:22 Ur Specific [place] 1.014 (1.003-1.030) 08/30/17 11:22 Urine Protein 1+ mg/dL (NEGATIVE) H 08/30/17 11:22 Urine Glucose (UA) Normal mg/dL (Normal) 08/30/17 11:22 Urine Ketones Negative mg/dL (NEGATIVE) 08/30/17 11:22 Urine Blood 1+ (NEGATIVE) H 08/30/17 11:22 Urine Nitrate Negative (NEGATIVE) 08/30/17 11:22 Urine Bilirubin Negative (NEGATIVE) 08/30/17 11:22 Urine Urobilinogen Normal mg/dL (0.2-1.0) 08/30/17 11:22 Ur Leukocyte Esterase 3+ [place]/uL (Negative) H 08/30/17 11:22 Urine WBC (Auto) 12 /hpf (0-5) H 08/30/17 11:22 Urine RBC (Auto) 8 /hpf (0-3) H 08/30/17 11:22 Ur Squamous Epith Cells 1 /hpf (0-5) 08/30/17 11:22 Stool Occult Blood Negative (NEGATIVE) 09/02/17 03:03 Blood Type A POSITIVE 08/30/17 07:59 Antibody Screen Negative 08/30/17 07:59 - Hospital Course Hospital Course: On admission: "Patient is a 71 year old female with a history of HTN, hyperlipidemia, Kidney transplant is here because she was found on the floor by her daughter whom she lives. Patient's daughter says the patient was unconscious and was unable to arouse patient for about 30 units. Patient does not remember why she was on the floor not does she remember falling. She says she was been having right sided chest pain, shoulder pain, and right lower extremity pain and weakness since falling 3 days ago. She has extensive bruising on the right side of her face and legs. She denies any changes in vision, hearing, feeling lightheaded, nausea, vomiting, diarrhea, difficulty breathing, wheezing, palpitations, anxiety, depression, numbness tingling, or memory loss. She was seen in the ED about 3 days ago for a fall, they did x:rays of knee, shoulder, head and cervical spine CT which were negative. " Hospital Course: Patient was admitted for syncopal episode. Newspaper Deliverer Dr. Alvarez was consulted. Consulting Psychologist Dr. Stokes consulted. On admission, EKG showed sinus arrhythmia with premature atrial contractions. Troponins and repeats were unremarkable. Patient on health care social worker had resolution of premature atrial contractions. Patient underwent tilt table test which was unremarkable. Carotid ultrasound was also unremarkable. Orthopedic surgeon Dr. Faustin was consulted for the right shoulder pain. Per orthopedic team, patient placed in an immobilizer brace for the right knee, and they recommended rehab for the shoulder. Patient stable for discharge to [facility] per Dr. Alvarez and Dr. Payne. This is a summary of the hospital course. For more information, refer to the medical records. Discharge Exam - Head Exam Head Exam: NORMOCEPHALIC. absent: ATRAUMATIC (bruising on the right side of the face with improving right periorbital swelling) - Eye Exam Eye Exam: EOMI, PERRL - ENT Exam ENT Exam: Mucous Membranes Moist - Respiratory Exam Respiratory Exam: Chest Wall Tenderness (s/p multiple falls), Clear to PA & Lateral. absent: Rales, Rhonchi, Wheezes, Respiratory Distress - Cardiovascular Exam Cardiovascular Exam: REGULAR RHYTHM, +S1, +S2 - GI/Abdominal Exam GI & Abdominal Exam: Normal Bowel Sounds, Soft. absent: Tenderness - Extremities Exam Extremities exam: joint swelling (right knee swelling and tenderness), pedal edema (trace bilaterally) Additional comments: ecchymosis and soft tissue swelling of right lower extremity, skin warm to touch. Immobilizer brace in place - Neurological Exam Neurological exam: Alert, Oriented x3 - Psychiatric Exam Psychiatric exam: Normal Affect, Normal Mood - Skin Skin Exam: Dry, Intact, Warm Discharge Plan - Discharge Medications Prescriptions: Ciprofloxacin HCl [Cipro] 250 mg PO BID 7 Days #14 tablet - Follow Up Plan Condition: STABLE Disposition: REHAB FACILITY/REHAB UNIT Instructions: Urinary Tract Infection in Women (DC), Syncope (DC), Fall Prevention for Older Adults (GEN), Anemia (DC), Fall Prevention (DC) Referrals: Mikel Alvarez MD [Staff Provider] - Manuel Payne Jr., MD [Medical Doctor] -
== END 2017-09-04 13:30 | DRG 312 ==
LOC: C.ER 06:40 → C.9E 12:08 → C.6T 12:33 → OBSVTOIN 09-01 10:29
PROVIDERS: ADMIT Internal Medicine; ATTEND Internal Medicine
PROC: 4A02XFZ Measurement of Cardiac Rhythm, External Approach (ICD-10-PCS; principal; 2017-09-03)
PROC: 4A03XB1 Measurement of Arterial Pressure, Peripheral, External Approach (ICD-10-PCS; 2017-09-03)
DX: R55 Syncope and collapse (principal); S09.90XA Unspecified injury of head, initial encounter; N39.0 Urinary tract infection, site not specified; D64.9 Anemia, unspecified; I12.9 Hypertensive chronic kidney disease with stage 1 through stage 4 chronic kidney disease, or unspecified chronic kidney disease; S40.011A Contusion of right shoulder, initial encounter; Z94.0 Kidney transplant status; N18.3 Chronic kidney disease, stage 3 (moderate); E78.5 Hyperlipidemia, unspecified; W06.XXXA Fall from bed, initial encounter; R41.82 Altered mental status, unspecified; M51.36 Other intervertebral disc degeneration, lumbar region; S80.11XA Contusion of right lower leg, initial encounter; I49.1 Atrial premature depolarization; K59.00 Constipation, unspecified

== ENCOUNTER 2017-10-16 06:59 | Emergency (ER) | payer MEDICARE, OTHER ==
[2017-10-16 07:00] VITALS: BMI 30.2
--- NOTE | 2017-10-16 07:43 | C.PDOC ---
History Of Present Illness 71 year old female was sent from [facility] to ED via EMS for evaluation. As per senior living nurse, while attempting to wake up patient for morning medication, patient would not wake up which prompted concern. EMS states patient was awake, alert, and had no physical complaints. Upon arrival to ED, patient is awake, alert, and not sure why she was sent to ED. Patient denies nausea, vomiting, fever, chills, chest pain, shortness of breath, or other complaints at this time. Time Seen by Provider: 10/16/17 07:12 Chief Complaint (Nursing): Medical Clearance History Per: Patient, EMS History/Exam Limitations: no limitations Pain Scale Rating Of: 0 Recent travel outside of the [place]: No Additional History Per: Detention Past Medical History Reviewed: Historical Data, Nursing Documentation, Vital Signs Vital Signs: Last Vital Signs Temp 99 F 10/16/17 12:27 Pulse 82 10/16/17 12:27 Resp 16 10/16/17 12:27 BP 148/80 10/16/17 12:27 Pulse Ox 93 L 10/16/17 16:58 - Medical History PMH: HTN, Chronic Kidney Disease - [employer] Procedures MEASURE OF ARTERIAL PRESSURE, PERIPHERAL, 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 APPROACH (09/01/17) MEASUREMENT OF CARDIAC RHYTHM, EXTERNAL APPROACH (09/01/17) Family History: States: Unknown Family Hx - Social History Hx Alcohol Use: No Hx Substance Use: No - Immunization History Hx Tetanus Toxoid Vaccination: No Hx Influenza Vaccination: Yes Hx Pneumococcal Vaccination: Yes (also recvd TB) Review Of Systems Constitutional: Negative for: Fever, Chills Cardiovascular: Negative for: Chest Pain, Palpitations Respiratory: Negative for: Cough, Shortness of Breath Gastrointestinal: Negative for: Nausea, Vomiting, Abdominal Pain, Diarrhea Neurological: Negative for: Weakness, Numbness Physical Exam - Physical Exam Appears: Non-toxic, No Acute Distress, Other (patient is elderly and frail ) Skin: Warm, Dry, No Rash Head: Atraumatic, Normacephalic, No Tenderness Eye(s): bilateral: Normal Inspection, PERRL, EOMI Oral Mucosa: Moist Neck: Supple Chest: Symmetrical, No Deformity Cardiovascular: Rhythm Regular, No Murmur Respiratory: No Rales, No Rhonchi, No Wheezing, Other (clear to auscultation bilaterally ) Gastrointestinal/Abdominal: Soft, No Tenderness, No Distention, No Guarding, No Rebound Extremity: Normal ROM, No Tenderness, No Pedal Edema Neurological/Psych: Oriented x3 ED Course And Treatment - Laboratory Results Result Diagrams: 10/16/17 08:21 10/16/17 08:21 ECG: Interpreted By Me, Viewed By Me ECG Rhythm: Sinus Rhythm, R BBB Interpretation Of ECG: No acute changes from prior EKG on 08/30/2017 Rate From EC O2 Sat by Pulse Oximetry: 93 (RA) - CT Scan/US Head CT Other Rad Studies (CT/US): Read By Radiologist Head CT W/O Contrast Other Rad Studies (CT/US): Read By Radiologist, Radiology Report Reviewed CT/US Interpretation: FINDINGS: HEMORRHAGE: No intracranial hemorrhage. BRAIN : No mass effect or edema. Scattered focal lucencies in the subcortical and periventricular white matter suggestive for chronic microvascular ischemic change. Chronic ischemic changes in the left external capsule, stable. VENTRICLES: Unremarkable. No hydrocephalus. CALVARIUM: Unremarkable. PARANASAL SINUSES: Unremarkable as visualized. No significant inflammatory changes. MASTOID AIR CELLS: Unremarkable as visualized. No inflammatory changes. OTHER FINDINGS: None. IMPRESSION: Chronic microvascular ischemic changes. If focal neurologic deficit persists, consider MRI. Progress Note: Head CT, EKG, and blood work was ordered. Medical Decision Making Medical Decision Making: Impression: AMS? this morning, currently AxOx3 07:[address] Mercedes Stroud who wants CT head and bloodwork for clearance Plan: EKG, Labs and CT head All diagnostics reviewed. Case discussed with Dr Mercedes Stroud who wants ED observation and patient was admitted Of note patient's daughter arrived to ED and stated she does not want her mother admitted to hospital and wants to take her home. Contact Dr Mercedes Stroud who comes to ED to evaluate patient. Patient daughter will sign patient out AMA. Disposition - Disposition Referrals: Gonsalo Stroud MD [Staff Provider] - Disposition: AGAINST MEDICAL ADVICE Disposition Time: 12:25 Condition: STABLE Forms: [facility] (Malay) - POA Present On Arrival: None - Clinical Impression Clinical Impression: Near syncope, Left against medical advice - PA / MANAGED CARE NURSE / Resident Statement MD/DO has reviewed & agrees with the documentation as recorded. - Scribe Statement The provider has reviewed the documentation as recorded by the Scribe Blanca Lizz All medical record entries made by the Scribe were at my direction and personally dictated by me. I have reviewed the chart and agree that the record accurately reflects my personal performance of the history, physical exam, medical decision making, and the department course for this patient. I have also personally directed, reviewed, and agree with the discharge instructions and disposition.
[2017-10-16 08:30] LABS: BASO % 0.2 % (0.0-2.0); HEMATOCRIT 30.3 % (34.0-47.0); LYMPH # 0.9 K/uL (1.0-4.3); LYMPH % 12.7 % (20.0-40.0); MEAN CORPUSCULAR HEMOGLOBIN 25.5 pg (27.0-31.0); MEAN CORPUSCULAR HGB CONC 32.2 g/dL (33.0-37.0); MEAN PLATELET VOLUME 7.6 fL (7.2-11.7); MONO # 0.6 K/uL (0.0-0.8); MONO % 8.9 % (0.0-10.0); RED CELL DISTRIBUTION WIDTH 15.6 % (11.5-14.5); WHITE BLOOD COUNT 7.1 K/uL (4.8-10.8)
--- NOTE | 2017-10-16 08:56 | CT ---
PROCEDURE: CT HEAD WITHOUT CONTRAST. HISTORY: Altered mental status COMPARISON: 08/30/2017 TECHNIQUE: Axial computed tomography images were obtained through the head/brain without intravenous contrast. Radiation dose: Total exam DLP = 1613 mGy-cm. This CT exam was performed using one or more of the following dose reduction techniques: Automated exposure control, adjustment of the mA and/or kV according to patient size, and/or use of iterative reconstruction technique. FINDINGS: HEMORRHAGE: No intracranial hemorrhage. BRAIN: No mass effect or edema. Scattered focal lucencies in the subcortical and periventricular white matter suggestive for chronic microvascular ischemic change. Chronic ischemic changes in the left external capsule, stable. VENTRICLES: Unremarkable. No hydrocephalus. CALVARIUM: Unremarkable. PARANASAL SINUSES: Unremarkable as visualized. No significant inflammatory changes. MASTOID AIR CELLS: Unremarkable as visualized. No inflammatory changes. OTHER FINDINGS: None. IMPRESSION: Chronic microvascular ischemic changes. If focal neurologic deficit persists, consider MRI.
[2017-10-16 08:57] LABS: BILIRUBIN,TOTAL 0.7 mg/dL (0.2-1.3); CALCIUM 8.1 mg/dl (8.6-10.4); POTASSIUM 3.8 mmol/L (3.6-5.2); TOTAL PROTEIN 6.3 g/dL (6.3-8.3)
[2017-10-16 10:04] VITALS: RESP 16
[2017-10-16 12:27] VITALS: BP 148/80; PULSE 82; TEMP 99
[2017-10-16 16:58] VITALS: O2SAT 93
--- NOTE | 2017-10-17 13:29 | CARD ---
APPROVED REPORT EKG Measurement Heart [id number] <Conclusion> Normal sinus rhythm Right bundle branch block Abnormal ECG
== END 2017-10-16 12:27 | disposition left against medical advice (07) ==
LOC: SUPCPDRO 06:59 → C.ER 06:59 → C.9E 10:10 → UNDOADMOB 10:10
DX: R55 Syncope and collapse (principal); I12.9 Hypertensive chronic kidney disease with stage 1 through stage 4 chronic kidney disease, or unspecified chronic kidney disease; N18.9 Chronic kidney disease, unspecified

== ENCOUNTER 2018-04-09 07:21 | Inpatient (IN) | payer MEDICARE, OTHER ==
[2018-04-09 07:21] VITALS: BMI 30.2
[2018-04-09 08:16] LABS: BASO % 0.7 % (0.0-2.0); EOS # 0.1 K/uL (0.0-0.7); EOS % 0.8 % (0.0-4.0); HEMOGLOBIN 11.1 g/dL (11.0-16.0); LYMPH # 1.7 K/uL (1.0-4.3); LYMPH % 25.5 % (20.0-40.0); MEAN CELL VOLUME 78.9 fL (81.0-99.0); MEAN CORPUSCULAR HEMOGLOBIN 26.3 pg (27.0-31.0); MEAN CORPUSCULAR HGB CONC 33.3 g/dL (33.0-37.0); MEAN PLATELET VOLUME 7.6 fL (7.2-11.7); MONO # 0.6 K/uL (0.0-0.8); MONO % 9.2 % (0.0-10.0); NEUT # 4.4 K/uL (1.8-7.0); NEUT % 63.8 % (50.0-75.0); NRBC % 0.2 % (0.0-2.0); RBC 4.24 Mil/uL (3.80-5.20); RED CELL DISTRIBUTION WIDTH 16.2 % (11.5-14.5); WHITE BLOOD COUNT 6.8 K/uL (4.8-10.8)
[2018-04-09 08:34] LABS: URINE BILIRUBIN NEGATIVE (NEGATIVE); URINE BLOOD NEGATIVE (NEGATIVE); URINE CLARITY Clear (Clear); URINE COLOR Yellow (YELLOW); URINE GLUCOSE (UA) NORMAL (Normal); URINE LEUKOCYTE ESTERASE TRACE Leu/uL (Negative); URINE PROTEIN 1+ mg/dL (NEGATIVE); URINE UROBILINOGEN NORMAL mg/dL (0.2-1.0)
--- NOTE | 2018-04-09 08:52 | CT ---
PROCEDURE: CT HEAD WITHOUT CONTRAST. HISTORY: SEIZURE NEW ONSET COMPARISON: 10/16/2017 TECHNIQUE: Axial computed tomography images were obtained through the head/brain without intravenous contrast. Radiation dose: Total exam DLP = 836 mGy-cm. This CT exam was performed using one or more of the following dose reduction techniques: Automated exposure control, adjustment of the mA and/or kV according to patient size, and/or use of iterative reconstruction technique. FINDINGS: HEMORRHAGE: No intracranial hemorrhage. BRAIN: No mass effect or edema. Scattered focal lucencies in the subcortical and periventricular white matter suggestive for chronic microvascular ischemic change. . Focal hypoattenuation measuring 7 millimeters seen within the right parietal subcortical white matter on series 4, image 33 suggestive for age-indeterminate ischemic change. Stable focal area of low attenuation seen within the left external capsule suggestive for chronic ischemic change. VENTRICLES: Unremarkable. No hydrocephalus. CALVARIUM: Unremarkable. PARANASAL SINUSES: Unremarkable as visualized. No significant inflammatory changes. MASTOID AIR CELLS: Unremarkable as visualized. No inflammatory changes. OTHER FINDINGS: Intracranial atherosclerotic calcifications. 6 millimeter lobulated calcification seen within the posterior left cerebellum, not significantly changed. IMPRESSION: No acute intracranial hemorrhage. Focal hypoattenuation measuring 7 millimeter seen within the right parietal subcortical white matter on series 4, image 33 suggestive for age-indeterminate ischemic change. Correlation with MRI may be helpful clinically indicated. Additional stable focal areas of chronic ischemic and microvascular ischemic changes as described above.
[2018-04-09 09:05] LABS: ALB/GLOB RATIO 1.3 (1.0-2.1); ALBUMIN 3.6 g/dL (3.5-5.0); CALCIUM 9.2 mg/dl (8.6-10.4)
--- NOTE | 2018-04-09 09:15 | C.PDOC ---
History Of Present Illness 72-year-old female brought to the emergency department by ambulance after daughter witnessed her having seizure-like activity this morning. She states her mother woke up this morning, and started having shaking of her body, was rigid at times - episodes lasted approx 1 week, and when patient woke up she was confused for a period of time. As per daughter, patient was feeling dizzy ( light-headed). Patient has no history of seizure disorder. Patient denies chest pain, shortness of breath, cough, fever, abdominal pain, nausea/vomiting/ diarrhea, extremity weakness, visual changes, sensory changes, slurred speech, or any other associated symptoms. Time Seen by Provider: 04/09/18 07:26 Chief Complaint (Nursing): Seizure History Per: Patient, Family History/Exam Limitations: no limitations Number Of Seizures: One Length Of Seizures (Duration): Minutes Quality Of Seizure: Generalized Past Medical History Reviewed: Historical Data, Nursing Documentation, Vital Signs Vital Signs: Last Vital Signs Temp 98.9 F 04/11/18 15:53 Pulse 56 L 04/11/18 16:00 Resp 20 04/11/18 15:53 BP 110/64 04/11/18 15:53 Pulse Ox 95 04/11/18 15:53 - Medical History PMH: HTN, Chronic Kidney Disease - [facility] Procedures MEASURE OF ARTERIAL PRESSURE, PERIPHERAL, NETWORK SUPPORT APPROACH (09/01/17) MEASUREMENT OF CARDIAC RHYTHM, EXTERNAL APPROACH (09/01/17) Family History: States: No Known Family Hx - Social History Hx Alcohol Use: No Hx Substance Use: No - Immunization History Hx Tetanus Toxoid Vaccination: No Hx Influenza Vaccination: Yes Hx Pneumococcal Vaccination: Yes (also recvd TB) Review Of Systems Constitutional: Negative for: Fever Cardiovascular: Negative for: Chest Pain, Palpitations Respiratory: Negative for: Cough, Shortness of Breath Gastrointestinal: Negative for: Nausea, Vomiting, Diarrhea Musculoskeletal: Negative for: Back Pain Neurological: Positive for: Seizures. Negative for: Weakness, Numbness, Change in Speech, Confusion, Altered Mental Status, Headache, Dizziness Physical Exam - Physical Exam Appears: Well, Non-toxic, No Acute Distress Skin: Normal Color, Warm, Dry, No Rash Head: Atraumatic, Normacephalic Eye(s): bilateral: Normal Inspection, PERRL, EOMI, Other (no nystagmus) Oral Mucosa: Moist Neck: Normal, Normal ROM Chest: Symmetrical Cardiovascular: Rhythm Regular, Murmur (3/6 holosystolic) Respiratory: Normal Breath Sounds, No Accessory Muscle Use, No Rales, No Rhonchi , No Wheezing Gastrointestinal/Abdominal: Normal Exam, Bowel Sounds, Soft, No Tenderness Extremity: Normal ROM Neurological/Psych: Oriented x3 ED Course And Treatment - Laboratory Results Result Diagrams: 04/11/18 07:13 04/11/18 07:13 ECG: Interpreted By Me, Viewed By Me ECG Rhythm: Sinus Rhythm ECG Interpretation: No Acute Changes Rate From EC (bpm) O2 Sat by Pulse Oximetry: 96 (RA) Pulse Ox Interpretation: Normal - CT Scan/US ct head Other Rad Studies (CT/US): Read By Radiologist, Radiology Report Reviewed CT/US Interpretation: Accession No. : [id number]. Patient Name / ID : REZA BABIN / [id number]. Exam Date : 04/09/2018 08:19:00 ( Approved ). Study Comment : Sex / Age : F / [id number]. Creator : Bladimir Dalal MD. Dictator : Bladimir Dalal MD. Piping Design Specialist : Welder Tech : Bladimir Dalal MD. Approver2 : Report Date : 04/09/2018 08:50:56. My Comment : . PROCEDURE: CT HEAD WITHOUT CONTRAST. HISTORY: SEIZURE NEW ONSET. COMPARISON : 10/16/2017. TECHNIQUE: Axial computed tomography images were obtained through the head/brain without intravenous contrast. Radiation dose: Total exam DLP = 836 mGy-cm. This CT exam was performed using one or more of the following dose reduction techniques: Automated exposure control, adjustment of the mA and/or kV according to patient size, and/or use of iterative reconstruction technique. FINDINGS: HEMORRHAGE: No intracranial hemorrhage. BRAIN: No mass effect or edema. Scattered focal lucencies in the subcortical and periventricular white matter suggestive for chronic microvascular ischemic change. . Focal hypoattenuation measuring 7 millimeters seen within the right parietal subcortical white matter on series 4, image 33 suggestive for age- indeterminate ischemic change. Stable focal area of low attenuation seen within the left external capsule suggestive for chronic ischemic change. VENTRICLES: Unremarkable. No hydrocephalus. CALVARIUM: Unremarkable. PARANASAL SINUSES: Unremarkable as visualized. No significant inflammatory changes. MASTOID AIR CELLS: Unremarkable as visualized. No inflammatory changes. OTHER FINDINGS: Intracranial atherosclerotic calcifications. 6 millimeter lobulated calcification seen within the posterior left cerebellum, not significantly changed. IMPRESSION: No acute intracranial hemorrhage. Focal hypoattenuation measuring 7 millimeter seen within the right parietal subcortical white matter on series 4, image 33 suggestive for age-indeterminate ischemic change. Correlation with MRI may be helpful clinically indicated. Additional stable focal areas of chronic ischemic and microvascular ischemic changes as described above. Progress Note: Bloodwork, CT Head, EKG, Chest X-Ray and UA ordered and reviewed. Patient given PO Aspirin. MRI ordered, however patient has spinal stimulator. Daughter trying to find card for spinal stimulator to determine if it is MRI safe or not. For the time being, radiologist recommends against MRI at this time. - Physician Consult Information Physician Contacted: Manuel Payne Jr. Outcome Of Conversation: Discussed patient with Dr. Payne, agrees with admission to his service for new onset seizure, possible CVA/TIA. NIHSS Stroke Scale - Date/Time Evaluation Performed Date Performed: 04/09/18 Time Performed: 07:35 When Was NIHSS Performed: Baseline - How Severe is the Stoke Level of Consciousness: 0=Alert LOC to Questions: 0=Both comments correct LOC to commands: 0=Obeys both correctly Best Gaze: 0=Normal Visual: 0=No visual loss Facial: 0=Normal Motor Arm - Left: 0=No drift Motor Arm - Right: 0=No drift Motor Leg - Left: 0=No drift Motor Leg - Right: 0=No drift Limb Ataxia: 0=Absent Sensory: 0=Normal Best Language: 0=No aphasia Dysarthia: 0=Normal articulation Extinction & Inattention (Neglect): 0=Normal, no object Score: 0 Severity Of Stroke: 0= No Stroke rTPA Inclusion/Exclusion - Refusal of Treatment Patient Refused Treatment: No - Inclusion Criteria for Altepase Patient is 18 years or Older: Yes The Clinical Diagnosis of Ischemic Stroke That is Causing a Potentially Disabling Neurological Deficit: No Time of Onset is Well Established to be Less Than 270 Minute Before Treatment Would Begin: Yes Risk/Benefit Discussed With Patient/Family Member Present: No Disposition - Disposition Disposition: HOSPITALIZED Disposition Time: 09:46 Condition: STABLE - Clinical Impression Clinical Impression: New onset seizure - Scribe Statement The provider has reviewed the documentation as recorded by the Scribe (Oscar Prather) All medical record entries made by the Scribe were at my direction and personally dictated by me. I have reviewed the chart and agree that the record accurately reflects my personal performance of the history, physical exam, medical decision making, and the department course for this patient. I have also personally directed, reviewed, and agree with the discharge instructions and disposition. Decision To Admit - Pt Status Changed To: Hospital Disposition Of: Inpatient - Admit Certification Admit to Inpatient:: After my assessment, the patient will require hospitalization for at least two midnights. This is because of the severity of symptoms shown, intensity of services needed, and/or the medical risk in this patient being treated as an outpatient. - InPatient: Physician Admission Certification: I certify that this patient requires 2 or more midnights of care for the following reason:: see notes - . Bed Request Type: Telemetry Admitting Physician: Manuel Payne Jr. Patient Diagnosis: New onset seizure
[2018-04-09 09:16] LABS: CK-MB 2.32 ng/mL (0.0-3.38); TROPONIN I 0.025 ng/mL (0.00-0.120)
--- NOTE | 2018-04-09 09:31 | RAD ---
PROCEDURE: CHEST RADIOGRAPH, 1 VIEW HISTORY: SOB COMPARISON: None available. FINDINGS: LUNGS: Clear. PLEURA: No pneumothorax or pleural fluid seen. CARDIOVASCULAR: Normal. OSSEOUS STRUCTURES: No significant abnormalities. VISUALIZED UPPER ABDOMEN: Normal. OTHER FINDINGS: None. IMPRESSION: No active disease.
--- NOTE | 2018-04-09 10:09 | CP.PCM.HP ---
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 Patient lives with her daughter, and the daughter was awoken to the patient making sounds. Daughter observed the patient in the chair shaking and "in spasm" with foam coming from her mouth. Daughter states that afterwards patient was unresponsive for 5 minutes, at which point she called 9-1-1. Patient states she normally sleeps in her chair because she "is afraid to be in bed" since her bedroom is on a separate level of their home as the kitchen and bathroom and would require her to use stairs. She does not remember what happened and "woke up with everyone around me." Both patient and daughter report that this is the first occurrence, denies history of seizures. Patient reports dizziness with change of position and cough. Patient denies fever/chills, chest pain, shortness of breath, abdominal pain, nausea/vomiting/ diarrhea/constipation. PMD: Dr. Stokes -Per patient and family, patient sees concrete float maker Dr. 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 Past surgical history: bilateral cataracts (1999), laminectomy x2 L2-L3 and L4- L5 (2008, 2010), spinal stimulator placement (2015) Medications: Metoprolol 50mg PO BID, Norvasc 5mg PO QHS, Cellcept 500mg PO BID, Cyclosporine 75mg PO QAM and 50mg PO QHS, Prednisone 5mg PO QD, Bactrim DS 1 tab PO QD, Lovaza 1000mg 2 tabs PO QD, Tramadol 50mg PO BID Allergies: amoxicillin (swelling, dyspnea) Family history: son at age 45, history of Wiskott-Jeremías syndrome Social history: light smoker 40+ years ago; rare alcohol drinker; denies drug use; lives with daughter Present on Admission - Present on Admission Any Indicators Present on Admission: No Review of Systems - Constitutional Constitutional: absent: Chills, Fever - EENT Eyes: absent: Blurred Vision Ears: Dizziness - Cardiovascular Cardiovascular: absent: Chest Pain, Dyspnea, Palpitations - Respiratory Respiratory: Cough. absent: Dyspnea, Wheezing - Gastrointestinal Gastrointestinal: absent: Constipation, Diarrhea, Nausea, Vomiting - Genitourinary Genitourinary: absent: Dysuria - Musculoskeletal Musculoskeletal: absent: Numbness - Neurological Neurological: Dizziness. absent: Headaches, Syncope, Tingling, Weakness Past Patient History - Infectious Disease Hx of Infectious Diseases: None - Past Social History Smoking Status: Never Smoked - CARDIAC Hx Hypertension: Yes - PULMONARY Hx Respiratory Disorders: No - NEUROLOGICAL Hx Neurological Disorder: No - HEENT Hx Cataracts: Yes - RENAL Hx Chronic Kidney Disease: Yes - ENDOCRINE/METABOLIC Hx Endocrine Disorders: No - MUSCULOSKELETAL/RHEUMATOLOGICAL Hx Falls: Yes - GASTROINTESTINAL Hx Gastrointestinal Disorders: No - PSYCHIATRIC Hx Substance Use: No - SURGICAL HISTORY Hx Surgeries: Yes Other/Comment: Rt. kidney transplant . L AVF - ANESTHESIA Hx Anesthesia: Yes Hx Anesthesia Reactions: No Meds Allergies/Adverse Reactions: Allergies Allergy/AdvReac Type Severity Reaction Status Date / Time amoxicillin AdvReac Severe Verified 10/16/17 07:04 Physical Exam - Constitutional Appears: Non-toxic, No Acute Distress - Head Exam Head Exam: ATRAUMATIC, NORMAL INSPECTION - Eye Exam Eye Exam: EOMI, Normal appearance - ENT Exam ENT Exam: Mucous Membranes Moist - Neck Exam Neck exam: Positive for: Full Rom. Negative for: Lymphadenopathy, Tenderness - Respiratory Exam Respiratory Exam: Clear to Auscultation Bilateral, NORMAL BREATHING PATTERN. absent: Rales, Rhonchi, Wheezes, Stridor - Cardiovascular Exam Cardiovascular Exam: REGULAR RHYTHM, RRR, +S1, +S2. absent: JVD - GI/Abdominal Exam GI & Abdominal Exam: Normal Bowel Sounds, Soft. absent: Tenderness - Extremities Exam Extremities exam: Positive for: tenderness, pedal pulses present. Negative for : pedal edema - Neurological Exam Neurological exam: Alert, CN II-XII Intact, Oriented x3 - Expanded Neurological Exam Expanded Patient oriented to: person, place, time Cerebellar Function: Finger to Nose: Normal Sensory exam: Lower Extremity Light Touch: Normal, Upper Extremity Light Touch: Normal Neuro motor strength exam: Left Upper Extremity: 5, Right Upper Extremity: 5, Left Lower Extremity: 5, Right Lower Extremity: 5 Coma Scale Eye Opening: SPONTANEOUS Coma Scale Motor Response: OBEYS COMMANDS - Psychiatric Exam Psychiatric exam: Normal Affect, Normal Mood - Skin Skin Exam: Dry, Intact, Normal Color Results - Vital Signs Recent Vital Signs: Last Vital Signs Temp 98 F 04/09/18 09:10 Pulse 78 04/09/18 09:10 Resp 18 04/09/18 09:10 BP 122/45 L 04/09/18 09:10 Pulse Ox 96 04/09/18 09:49 - Labs Result Diagrams: 04/09/18 08:09 04/09/18 08:48 Labs: Laboratory Results - last 24 hr 04/09/18 04/09/18 04/09/18 07:53 08:09 08:09 WBC 6.8 RBC 4.24 Hgb 11.1 Hct 33.4 L MCV 78.9 L D MCH 26.3 L MCHC 33.3 RDW 16.2 H Plt Count 199 MPV 7.6 Neut % (Auto) 63.8 Lymph % (Auto) 25.5 [place] % (Auto) 9.2 Eos % (Auto) 0.8 Baso % (Auto) 0.7 Neut # (Auto) 4.4 Lymph # (Auto) 1.7 [place] # (Auto) 0.6 Eos # (Auto) 0.1 Baso # (Auto) 0.0 Sodium Potassium Chloride Carbon Dioxide Anion Gap BUN Creatinine Est GFR ( Amer) Est GFR (Non-Af Amer) POC Glucose (mg/dL) 94 Random Glucose Calcium Total Bilirubin AST ALT Alkaline Phosphatase Total Creatine Kinase CK-MB (Mass) Troponin I Total Protein Albumin Globulin Albumin/Globulin Ratio Urine Color Yellow Urine Clarity Clear Urine pH 5.0 Ur Specific [place] 1.013 Urine Protein 1+ H Urine Glucose (UA) Normal Urine Ketones Negative Urine Blood Negative Urine Nitrate Negative Urine Bilirubin Negative Urine Urobilinogen Normal Ur Leukocyte Esterase Trace Urine RBC (Auto) < 1 04/09/18 08:48 WBC RBC Hgb Hct MCV MCH MCHC RDW Plt Count MPV Neut % (Auto) Lymph % (Auto) [place] % (Auto) Eos % (Auto) Baso % (Auto) Neut # (Auto) Lymph # (Auto) [place] # (Auto) Eos # (Auto) Baso # (Auto) Sodium 144 Potassium 4.0 Chloride 107 Carbon Dioxide 25 Anion Gap 16 BUN 34 H Creatinine 1.5 H Est GFR ( Amer) 41 Est GFR (Non-Af Amer) 34 POC Glucose (mg/dL) Random Glucose 97 Calcium 9.2 Total Bilirubin 0.4 AST 25 ALT 26 Alkaline Phosphatase 58 Total Creatine Kinase 131 CK-MB (Mass) 2.32 Troponin I 0.0250 Total Protein 6.4 Albumin 3.6 Globulin 2.8 Albumin/Globulin Ratio 1.3 Urine Color Urine Clarity Urine pH Ur Specific [place] Urine Protein Urine Glucose (UA) Urine Ketones Urine Blood Urine Nitrate Urine Bilirubin Urine Urobilinogen Ur Leukocyte Esterase Urine RBC (Auto) Assessment & Plan - Assessment and Plan (Free Text) Assessment: 1.) New onset seizure - Neurology consult: Dr. Rahman --> help appreciated - Seizure precautions/Neuro Check q4h - MRI unable to be completed due to spinal stimulator implant Imaging: - Head CT without contrast: No acute intracranial hemorrhage. Focal hypoattenuation measuring 7 millimeter seen within the right parietal subcortical white matter on series 4, image 33 suggestive for age-indeterminate ischemic change. Correlation with MRI may be helpful clinically indicated. Additional stable focal areas of chronic ischemic and microvascular ischemic changes as described above. - Head CT with contrast: No enhancing masses or collections. No evidence of unusual meningeal enhancement. Minor chronic periventricular white matter ischemic changes with scattered chronic bilateral basal nuclei lacunar type infarcts. Mild generalized volume loss. - Lower extremity venous duplex: No evidence of deep or superficial vein thrombosis of bilateral lower extremities. Technically difficult/limited exam due to patient body habitus, and patient intolerance to compressions. - Prolactin 21.5; f/u prolactin /16/18 - C-reactive Protein: 18.10 - ESR 24 - Mag 2.1; Phos 3.9 - f/u ionized calcium - Medications * Aspirin 81mg PO QD * NS at 100cc/hr 2.) History of renal transplant/ESRD - Nephrology consult: Dr. Stokes --> help appreciated - HIV 1&2 antibody screen: negative - f/u CMV, EBV results - HIV negative - Medications * Cyclosporine 75mg PO QAM * Cyclosporine 50mg PO QHS * Cellcept 500mg PO BID * Ultram 50mg PO BID PRN * Bactrim DS 1 tab PO QD (prophylaxis s/p right kidney transplant) 3.) History of HTN - Continue home medication * Norvasc 5mg PO QHS - TSH 3.51; free T4 1.39 4.) History of HLD - Continue home medication * Lovaza 1gm PO BID 5.) Prophylaxis - Heart healthy diet - Heparin 5000u SC Q8H - SCDs Case discussed with Dr. Kerry Hobbs PGY-1
[2018-04-09] MEDS ORDERED: CYCLOSPORINE, MODIFIED 25 MG CAP PO ONE (12:15)
[2018-04-09] MEDS: Metoprolol Succinate 50 mg XL Tab PO SCH ×2 (12:28→18:27)
[2018-04-09] MEDS: Omega-3-Acid Ethyl Esters 1 GM Cap PO SCH ×2 (12:28→18:27)
[2018-04-09] MEDS: Sodium Chloride 0.9% 1,000 ML IV SCH ×2 (12:28→22:22)
[2018-04-09 13:04] LABS: PROLACTIN 21.5 ng/mL (3.0-18.9)
[2018-04-09] MEDS ORDERED: Iodixanol 320 MG/ML 100 ML BOTTLE IV ONE (13:34)
--- NOTE | 2018-04-09 14:11 | VASCLAB ---
PROCEDURE: Lower Extremity Venous Duplex Exam. HISTORY: Bilateral lower extremity tenderness PRIORS: None. TECHNIQUE: Bilateral common femoral, femoral, popliteal and posterior tibial, peroneal and great saphenous veins were evaluated. Flow was assessed with color Doppler, compressibility, assessment of phasic flow and augmentation response. Report prepared by JULEE Mckeon FINDINGS: RIGHT: 1. Common Femoral Vein: 1.1. Compressibility - Fully compressible: Thrombus - None : Flow - Phasic: Augmentation -Normal: Reflux - None. 2. Femoral Vein: (proximal and mid views only) 2.1. Compressibility - Fully compressible: Thrombus - None : Flow - Phasic: Augmentation -Normal: Reflux - None. 3. Popliteal Vein: 3.1. Compressibility - Fully compressible: Thrombus - None : Flow - Phasic: Augmentation -Normal: Reflux - None. 4. Posterior Tibial Vein: 4.1. Compressibility - Fully compressible: Thrombus - None: Flow - Phasic: Augmentation -Normal: Reflux - None. 5. Peroneal Vein: 5.1. Unable to visualize due to swelling. 6. Great Saphenous Vein: 6.1. Compressibility - Fully compressible: Thrombus - None: Flow - Phasic: Augmentation - Normal: Reflux - None. LEFT: 1. Common Femoral Vein: 1.1. Compressibility - Fully compressible: Thrombus - None: Flow - Phasic: Augmentation -Normal: Reflux - None. 2. Femoral Vein: 2.1. Compressibility - Fully compressible: Thrombus - None: Flow - Phasic: Augmentation -Normal: Reflux - None. 3. Popliteal Vein: 3.1. Compressibility - Fully compressible: Thrombus - None : Flow - Phasic: Augmentation -Normal: Reflux - None. 4. Posterior Tibial Vein: 4.1. Compressibility - Fully compressible: Thrombus - None: Flow - Phasic: Augmentation -Normal: Reflux - None. 5. Peroneal Vein: 5.1. Unable to visualize due to swelling. 6. Great Saphenous Vein: 6.1. Compressibility - Fully compressible: Thrombus - None: Flow - Phasic: Augmentation - Normal: Reflux - None. OTHER FINDINGS: Right: Fluid filled anechoic mass noted behind the right knee area, measuring 3.60 x 1.47 c.m., brewer's cyst. IMPRESSION: Right: No evidence of deep or superficial vein thrombosis of the right lower extremity. Normal valve function noted of the right side. Left: No evidence of deep or superficial vein thrombosis of the left lower extremity. Normal valve function noted of the left side. Technically difficult/limited exam due to patient body habitus, and patient intolerance to compressions.
--- NOTE | 2018-04-09 15:12 | CT ---
PROCEDURE: CT HEAD WITH CONTRAST HISTORY: S/P seizure COMPARISON: Comparison made with prior noncontrast CT scan brain earlier same day. TECHNIQUE: Axial computed tomography images were obtained through the head/brain with intravenous contrast. Contrast dose: Radiation dose: Total exam DLP = 1081.11 mGy-cm. This CT exam was performed using one or more of the following dose reduction techniques: Automated exposure control, adjustment of the mA and/or kV according to patient size, and/or use of iterative reconstruction technique. FINDINGS: HEMORRHAGE: No acute parenchymal, subarachnoid or extra-axial hemorrhage. BRAIN: The minor chronic periventricular white matter ischemic changes are less well seen on this study due to contrast enhancement. . Small bilateral basal nuclei lacunar type infarcts are also less well seen. There are no enhancing parenchymal nor extra-axial masses or collections. No evidence of unusual meningeal enhancement. . Mild generalized volume loss. VENTRICLES: No obstructive hydrocephalus CALVARIUM: Unremarkable. PARANASAL SINUSES: Unremarkable as visualized. No significant inflammatory changes. MASTOID AIR CELLS: Unremarkable as visualized. No mastoid effusion. OTHER FINDINGS: None. IMPRESSION: No enhancing masses or collections. No evidence of unusual meningeal enhancement. Minor chronic periventricular white matter ischemic changes with scattered chronic bilateral basal nuclei lacunar type infarcts. Mild generalized volume loss
[2018-04-09] MEDS ORDERED: Tmp-Smz 800 mg-160 mg DS Tab PO ONE ×2 (16:17→18:15)
[2018-04-09] MEDS: CYCLOSPORINE, MODIFIED 25 MG CAP PO SCH (21:35)
[2018-04-10] MEDS: Sodium Chloride 0.9% 1,000 ML IV SCH ×2 (02:00→08:00)
--- NOTE | 2018-04-10 06:51 | CP.PCM.CON ---
History of Present Illness - History of Present Illness History of Present Illness: consult dictated NEW ONSET OF SEIZURE Hx SNF ? MISSED STEPS 3 MONTHS AGO EXAM LEFT SUB CORTICAL DYSFUNCTION - INC DTR AND BABINSKI RT SMALL FIBER NEUROPATHY HEART MURMER PLAN EEG CAROTID/ECHO CARDIOLOGY CONSULT rX ASA NO AED IS NEEDED NOW - TRY TO FIND OUT THE CAUSE FALL AND SEIZURE PRECATION NEEDS PSG AN OP PT THANKS Past Patient History - Infectious Disease Hx of Infectious Diseases: None - Past Medical History & Family History Past Medical History?: Yes - Past Social History Smoking Status: Never Smoked - CARDIAC Hx Hypertension: Yes - PULMONARY Hx Respiratory Disorders: No - NEUROLOGICAL Hx Neurological Disorder: No - HEENT Hx Cataracts: Yes - RENAL Hx Chronic Kidney Disease: Yes - ENDOCRINE/METABOLIC Hx Endocrine Disorders: No - MUSCULOSKELETAL/RHEUMATOLOGICAL Hx Falls: Yes - GASTROINTESTINAL Hx Gastrointestinal Disorders: No - PSYCHIATRIC Hx Substance Use: No - SURGICAL HISTORY Hx Surgeries: Yes Other/Comment: Rt. kidney transplant . L AVF - ANESTHESIA Hx Anesthesia: Yes Hx Anesthesia Reactions: No Meds Allergies/Adverse Reactions: Allergies Allergy/AdvReac Type Severity Reaction Status Date / Time amoxicillin AdvReac Severe Verified 10/16/17 07:04 - Medications Medications: Current Medications Amlodipine Besylate (Norvasc) 5 mg PO HS [facility] Last Admin: 04/09/18 21:35 Dose: 5 mg Aspirin (Ecotrin) 81 mg PO DAILY [facility] Cyclosporine (Cyclosporine) 50 mg PO HS [facility] Last Admin: 04/09/18 21:35 Dose: 50 mg Cyclosporine (Cyclosporine) 75 mg PO QAM [facility] Heparin Sodium (Porcine) (Heparin) 5,000 units SC Q8 [facility] Last Admin: 04/10/18 05:45 Dose: 5,000 units Sodium Chloride (Sodium Chloride 0.9%) 1,000 mls @ 100 mls/hr IV .Q10H [facility] Last Admin: 04/10/18 02:00 Dose: 100 mls/hr Metoprolol Succinate (Toprol Xl) 50 mg PO BID [facility] Last Admin: 04/09/18 18:27 Dose: 50 mg Mycophenolate Mofetil (Cellcept) 500 mg PO BID [facility] Last Admin: 04/09/18 18:27 Dose: 500 mg [id number] Ethyl Esters (Lovaza) 1 gm PO BID [facility] Last Admin: 04/09/18 18:27 Dose: 1 gm Prednisone (Prednisone Tab) 5 mg PO DAILY [facility] Last Admin: 04/09/18 12:28 Dose: 5 mg Tramadol HCl (Ultram) 50 mg PO BID PRN PRN Reason: Pain, moderate (4-7) Last Admin: 04/10/18 00:07 Dose: 50 mg Trimethoprim/Sulfamethoxazole (Bactrim Ds Tab) 1 tab PO DAILY [facility] PRN Reason: Protocol Results - Vital Signs Recent Vital Signs: Last Vital Signs Temp 97.9 F 04/09/18 23:00 Pulse 56 L 04/09/18 23:00 Resp 20 04/09/18 23:00 BP 136/66 04/09/18 23:00 Pulse Ox 96 04/09/18 23:00 - Labs Result Diagrams: 04/09/18 08:09 04/09/18 08:48 Labs: Laboratory Results - last 24 hr 04/09/18 04/09/18 04/09/18 07:53 08:09 08:09 WBC 6.8 RBC 4.24 Hgb 11.1 Hct 33.4 L MCV 78.9 L D MCH 26.3 L MCHC 33.3 RDW 16.2 H Plt Count 199 MPV 7.6 Neut % (Auto) 63.8 Lymph % (Auto) 25.5 [place] % (Auto) 9.2 Eos % (Auto) 0.8 Baso % (Auto) 0.7 Neut # (Auto) 4.4 Lymph # (Auto) 1.7 [place] # (Auto) 0.6 Eos # (Auto) 0.1 Baso # (Auto) 0.0 ESR Sodium Potassium Chloride Carbon Dioxide Anion Gap BUN Creatinine Est GFR ( Amer) Est GFR (Non-Af Amer) POC Glucose (mg/dL) 94 Random Glucose Calcium Phosphorus Magnesium Total Bilirubin AST ALT Alkaline Phosphatase Total Creatine Kinase CK-MB (Mass) Troponin I C-Reactive Protein Total Protein Albumin Globulin Albumin/Globulin Ratio Free T4 TSH 3rd Generation Prolactin Urine Color Yellow Urine Clarity Clear Urine pH 5.0 Ur Specific [place] 1.013 Urine Protein 1+ H Urine Glucose (UA) Normal Urine Ketones Negative Urine Blood Negative Urine Nitrate Negative Urine Bilirubin Negative Urine Urobilinogen Normal Ur Leukocyte Esterase Trace Urine RBC (Auto) < 1 HIV 1&2 Antibody Screen 04/09/18 04/09/18 04/09/18 08:48 12:13 12:13 WBC RBC Hgb Hct MCV MCH MCHC RDW Plt Count MPV Neut % (Auto) Lymph % (Auto) [place] % (Auto) Eos % (Auto) Baso % (Auto) Neut # (Auto) Lymph # (Auto) [place] # (Auto) Eos # (Auto) Baso # (Auto) ESR Sodium 144 Potassium 4.0 Chloride 107 Carbon Dioxide 25 Anion Gap 16 BUN 34 H Creatinine 1.5 H Est GFR ( Amer) 41 Est GFR (Non-Af Amer) 34 POC Glucose (mg/dL) Random Glucose 97 Calcium 9.2 Phosphorus 3.9 Magnesium 2.1 Total Bilirubin 0.4 AST 25 ALT 26 Alkaline Phosphatase 58 Total Creatine Kinase 131 CK-MB (Mass) 2.32 Troponin I 0.0250 C-Reactive Protein 18.10 H Total Protein 6.4 Albumin 3.6 Globulin 2.8 Albumin/Globulin Ratio 1.3 Free T4 TSH 3rd Generation 3.51 Prolactin 21.5 H Urine Color Urine Clarity Urine pH Ur Specific [place] Urine Protein Urine Glucose (UA) Urine Ketones Urine Blood Urine Nitrate Urine Bilirubin Urine Urobilinogen Ur Leukocyte Esterase Urine RBC (Auto) HIV 1&2 Antibody Screen Negative 04/09/18 04/09/18 12:13 12:13 WBC RBC Hgb Hct MCV MCH MCHC RDW Plt Count MPV Neut % (Auto) Lymph % (Auto) [place] % (Auto) Eos % (Auto) Baso % (Auto) Neut # (Auto) Lymph # (Auto) [place] # (Auto) Eos # (Auto) Baso # (Auto) ESR 24 H Sodium Potassium Chloride Carbon Dioxide Anion Gap BUN Creatinine Est GFR ( Amer) Est GFR (Non-Af Amer) POC Glucose (mg/dL) Random Glucose Calcium Phosphorus Magnesium Total Bilirubin AST ALT Alkaline Phosphatase Total Creatine Kinase CK-MB (Mass) Troponin I C-Reactive Protein Total Protein Albumin Globulin Albumin/Globulin Ratio Free T4 1.39 TSH 3rd Generation Prolactin Urine Color Urine Clarity Urine pH Ur Specific [place] Urine Protein Urine Glucose (UA) Urine Ketones Urine Blood Urine Nitrate Urine Bilirubin Urine Urobilinogen Ur Leukocyte Esterase Urine RBC (Auto) HIV 1&2 Antibody Screen
[2018-04-10 07:25] LABS: BASO % 0.4 % (0.0-2.0); EOS # 0.1 K/uL (0.0-0.7); EOS % 0.9 % (0.0-4.0); HEMOGLOBIN 10.8 g/dL (11.0-16.0); LYMPH # 1.6 K/uL (1.0-4.3); LYMPH % 21.8 % (20.0-40.0); MEAN CELL VOLUME 77.9 fL (81.0-99.0); MEAN CORPUSCULAR HEMOGLOBIN 26.2 pg (27.0-31.0); MEAN CORPUSCULAR HGB CONC 33.6 g/dL (33.0-37.0); MEAN PLATELET VOLUME 7.3 fL (7.2-11.7); MONO # 0.7 K/uL (0.0-0.8); MONO % 10.1 % (0.0-10.0); NEUT # 4.8 K/uL (1.8-7.0); NEUT % 66.8 % (50.0-75.0); RBC 4.11 Mil/uL (3.80-5.20); RED CELL DISTRIBUTION WIDTH 16.4 % (11.5-14.5); WHITE BLOOD COUNT 7.2 K/uL (4.8-10.8)
[2018-04-10 07:39] LABS: ALB/GLOB RATIO 1.2 (1.0-2.1); ALBUMIN 3.3 g/dL (3.5-5.0); CALCIUM 9.2 mg/dl (8.6-10.4)
[2018-04-10 08:16] LABS: PROLACTIN 11.5 ng/mL (3.0-18.9)
[2018-04-10 10:14] VITALS: RESP 20
[2018-04-10] MEDS: Metoprolol Succinate 50 mg XL Tab PO SCH ×2 (10:15→18:07)
[2018-04-10] MEDS: Omega-3-Acid Ethyl Esters 1 GM Cap PO SCH ×2 (10:15→18:06)
[2018-04-10] MEDS: Tmp-Smz 800 mg-160 mg DS Tab PO SCH (10:15)
[2018-04-10] MEDS: CYCLOSPORINE, MODIFIED 25 MG CAP PO SCH ×2 (10:17→21:40)
--- NOTE | 2018-04-10 10:31 | CP.PCM.PN ---
Subjective - Date & Time of Evaluation Date of Evaluation: 04/10/18 Time of Evaluation: 07:00 - Subjective Subjective: Medicine Progress Note: Patient was seen and examined at bedside in the AM. Patient states she is feeling much better. She denies headache, dizziness, lightheadedness, nausea or vomiting. Patient states she has moved out of bed to chair with help. Objective - Vital Signs/Intake and Output Vital Signs (last 24 hours): Temp Pulse Resp BP Pulse Ox 98.6 F 64 20 150/77 96 04/10/18 10:14 04/10/18 10:14 04/10/18 10:14 04/10/18 10:14 04/10/18 10:14 Intake and Output: 04/10/18 04/10/18 06:59 18:59 Intake Total 840 Balance 840 - Medications Medications: Current Medications Amlodipine Besylate (Norvasc) 5 mg PO HS [facility] Last Admin: 04/09/18 21:35 Dose: 5 mg Aspirin (Ecotrin) 81 mg PO DAILY [facility] Cyclosporine (Cyclosporine) 50 mg PO HS [facility] Last Admin: 04/09/18 21:35 Dose: 50 mg Cyclosporine (Cyclosporine) 75 mg PO QAM [facility] Heparin Sodium (Porcine) (Heparin) 5,000 units SC Q8 [facility] Last Admin: 04/10/18 05:45 Dose: 5,000 units Sodium Chloride (Sodium Chloride 0.9%) 1,000 mls @ 100 mls/hr IV .Q10H [facility] Last Admin: 04/10/18 02:00 Dose: 100 mls/hr Metoprolol Succinate (Toprol Xl) 50 mg PO BID [facility] Last Admin: 04/09/18 18:27 Dose: 50 mg Mycophenolate Mofetil (Cellcept) 500 mg PO BID [facility] Last Admin: 04/09/18 18:27 Dose: 500 mg [id number] Ethyl Esters (Lovaza) 1 gm PO BID [facility] Last Admin: 04/09/18 18:27 Dose: 1 gm Prednisone (Prednisone Tab) 5 mg PO DAILY [facility] Last Admin: 04/09/18 12:28 Dose: 5 mg Tramadol HCl (Ultram) 50 mg PO BID PRN PRN Reason: Pain, moderate (4-7) Last Admin: 04/10/18 00:07 Dose: 50 mg Trimethoprim/Sulfamethoxazole (Bactrim Ds Tab) 1 tab PO DAILY [facility] PRN Reason: Protocol - Labs Labs: 04/10/18 07:06 04/10/18 07:06 - Constitutional Appears: No Acute Distress - Head Exam Head Exam: ATRAUMATIC, NORMAL INSPECTION - Eye Exam Eye Exam: EOMI, Normal appearance - ENT Exam ENT Exam: Mucous Membranes Moist - Respiratory Exam Respiratory Exam: Clear to Ausculation Bilateral, NORMAL BREATHING PATTERN - Cardiovascular Exam Cardiovascular Exam: REGULAR RHYTHM, +S1, +S2 - GI/Abdominal Exam GI & Abdominal Exam: Soft, Normal Bowel Sounds. absent: Tenderness - Extremities Exam Extremities Exam: Normal Inspection, Tenderness (bilateral LE tender to palpation ) - Neurological Exam Neurological Exam: Alert, Awake, Oriented x3 - Psychiatric Exam Psychiatric exam: Normal Affect, Normal Mood - Skin Skin Exam: Normal Color Assessment and Plan - Assessment and Plan (Free Text) Assessment: 1.) New onset seizure - Neurology consult: Dr. Rahman --> help appreciated - Seizure precautions/Neuro Check q4h - MRI unable to be completed due to spinal stimulator implant Imaging: - Head CT without contrast: No acute intracranial hemorrhage. Focal hypoattenuation measuring 7 millimeter seen within the right parietal subcortical white matter on series 4, image 33 suggestive for age-indeterminate ischemic change. Correlation with MRI may be helpful clinically indicated. Additional stable focal areas of chronic ischemic and microvascular ischemic changes as described above. - Head CT with contrast: No enhancing masses or collections. No evidence of unusual meningeal enhancement. Minor chronic periventricular white matter ischemic changes with scattered chronic bilateral basal nuclei lacunar type infarcts. Mild generalized volume loss. - Lower extremity venous duplex: No evidence of deep or superficial vein thrombosis of bilateral lower extremities. Technically difficult/limited exam due to patient body habitus, and patient intolerance to compressions. - Prolactin 21.5 --> 11.5 - C-reactive Protein: 18.10 - ESR 24 - Mag 2.1; Phos 3.9 - Ionized calcium 4.6 - Medications * Aspirin 81mg PO QD * NS at 70cc/hr 2.) History of renal transplant/ESRD - Nephrology consult: Dr. Stokes --> help appreciated - HIV 1&2 antibody screen: negative - f/u CMV - EBV IgG ab 391 - Medications * Cyclosporine 75mg PO QAM * Cyclosporine 50mg PO QHS * Cellcept 500mg PO BID * Ultram 50mg PO BID PRN * Bactrim DS 1 tab PO QD (prophylaxis s/p right kidney transplant) 3.) History of HTN - Continue home medication * Norvasc 5mg PO QHS - TSH 3.51; free T4 1.39 - Cardiology Consult: Dr. Murphy --> help appreciated - Carotid Doppler: Negative - f/u ECHO 4.) History of HLD - Continue home medication * Lovaza 1gm PO BID - Lipid Panel: Triglycerides 220; Total Cholesterol 224; LDL 119; HDL 42 5.) Prophylaxis - Heart healthy diet - Heparin 5000u SC Q8H - SCDs - GI prophylaxis not indicated - Physical Therapy eval and treat Case discussed with Dr. Kerry Hobbs PGY-1
--- NOTE | 2018-04-10 13:32 | VASCLAB ---
PROCEDURE: HISTORY: Seizures COMPARISON: Carotid ultrasound dated 08/30/2017. TECHNIQUE: Grayscale and duplex Doppler evaluation of the cervical carotid and vertebral arteries were performed. The common carotid, carotid bifurcations and cervical Internal Carotid Artery (ICA) and proximal External Carotid Artery (ECA) were evaluated. The vertebral arteries were evaluated for gross patency and flow direction. Report prepared by JULEE Mckeon FINDINGS: RIGHT CAROTID ARTERIES: 1. Common Carotid Artery: No significant focal plaque formation of the right common carotid artery. Maximum Peak Systolic velocity: 84 cm/sec: End-diastolic velocity 15 cm/sec. 2. Carotid Bifurcation: plaque formation. Maximum Peak Systolic velocity: 76 cm/sec: End-diastolic velocity 9 cm/sec. 3. Internal Carotid Artery: Plaque description: 3.1. Proximal Segment: Peak systolic velocity 103 cm/sec: End-diastolic velocity 35 cm/sec - % stenosis 0-15% 3.2. Middle Segment: Peak systolic velocity 68 cm/sec: End-diastolic velocity 15 cm/sec - % stenosis 0-15% 3.3. Distal Segment: Peak systolic velocity 57 cm/sec: End-diastolic velocity 15 cm/sec - % stenosis 0-15% 4. External Carotid Artery: No significant focal plaque formation. Peak systolic velocity 97 cm/sec 5. ICA/CCA Ratio: 1.2 LEFT CAROTID ARTERIES: 1. Common Carotid Artery: No significant focal plaque formation of the left common carotid artery. Maximum Peak Systolic velocity: 81 cm/sec: End-diastolic velocity 9 cm/sec. 2. Carotid Bifurcation: plaque formation. Maximum Peak Systolic velocity: 61 cm/sec: End-diastolic velocity 9 cm/sec. 3. Internal Carotid Artery: Plaque description: 3.1. Proximal Segment: Peak systolic velocity 74 cm/sec: End-diastolic velocity 19 cm/sec - % stenosis 0-15% 3.2. Middle Segment: Peak systolic velocity 95 cm/sec: End-diastolic velocity 30 cm/sec - % stenosis 0-15% 3.3. Distal Segment: Peak systolic velocity 58 cm/sec: End-diastolic velocity 13 cm/sec - % stenosis 0-15% 4. External Carotid Artery: No significant focal plaque formation. Peak systolic velocity 92 cm/sec 5. ICA/CCA Ratio: 1.2 VERTEBRAL ARTERIES: 1. Right Vertebral Artery: The right vertebral artery flow direction is antegrade. 2. Left Vertebral Artery: The left vertebral artery flow direction is antegrade. OTHER FINDINGS: 1. Right Brachial Blood pressure: mmHg. 2. Left Brachial Blood pressure: mmHg. IMPRESSION: RIGHT: Duplex scan does not suggest hemodynamically significant stenosis of the right extracranial carotid arteries. LEFT: Duplex scan does not suggest hemodynamically significant stenosis of the left extracranial carotid arteries.
--- NOTE | 2018-04-10 16:09 | CP.PCM.CON ---
History of Present Illness - History of Present Illness History of Present Illness: HPI: 72 year old female with past medical history of HLD, HTN, ESRD secondary to HTN and h/o 1 atrophic kidney, status post donor kidney transplant in 2002 who presented to the ED for evaluation of seizure-like activity. Patient lives with her daughter, and the daughter was awoken to the patient making sounds. Daughter observed the patient in the chair shaking and "in spasm " with foam coming from her mouth. Daughter states that afterwards patient was unresponsive for 5 minutes, at which point she called 9-1-1. Patient states she normally sleeps in her chair because she "is afraid to be in bed" since her bedroom is on a separate level of their home as the kitchen and bathroom and would require her to use stairs. She does not remember what happened and "woke up with everyone around me." Both patient and daughter report that this is the first occurrence, denies history of seizures. Patient reports dizziness with change of position and cough. Patient denies fever/chills, chest pain, shortness of breath, abdominal pain, nausea/vomiting/diarrhea/constipation. No rejections of transplant. PMD: Dr. Stokes -Per patient and family, patient sees autocad draftsman Dr. 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, CKD 3 Past surgical history: bilateral cataracts (1999), laminectomy x2 L2-L3 and L4- L5 (2008, 2010), spinal stimulator placement (2015) Medications: Metoprolol 50mg PO BID, Norvasc 5mg PO QHS, Cellcept 500mg PO BID, Cyclosporine 75mg PO QAM and 50mg PO QHS, Prednisone 5mg PO QD, Bactrim DS 1 tab PO QD, Lovaza 1000mg 2 tabs PO QD, Tramadol 50mg PO BID Allergies: amoxicillin (swelling, dyspnea) Family history: son at age 45, history of [place] syndrome Social history: light smoker 40+ years ago; rare alcohol drinker; denies drug use; lives with daughter Review of Systems - Constitutional Constitutional: Fatigue, Lethargy - EENT Eyes: absent: As Per HPI, Blind Spots, Blurred Vision, Change in Vision, Decreased Night Vision, Diplopia, Discharge, Dry Eye, Exophthalmos, Floaters, Irritation, Itchy Eyes, Loss of Peripheral Vision, Pain, Photophobia, Requires Corrective Lenses, Sees Flashes, Spots in Vision, Tunnel Vision, Other Visual Disturbances, Loss of Vision, Other Ears: absent: As Per HPI, Decreased Hearing, Ear Discharge, Ear Pain, Tinnitus, Abnormal Hearing, Disequilibrium, Dizziness, Other Nose/Mouth/Throat: absent: As Per HPI, Epistaxis, Nasal Congestion, Nasal Discharge, Nasal Obstruction, Nasal Trauma, Nose Pain, Post Nasal Drip, Sinus Pain, Sinus Pressure, Bleeding Gums, Change in Voice, Dental Pain, Dry Mouth, Dysphagia, Halitosis, Hoarsness, Lip Swelling, Mouth Lesions, Mouth Pain, Odynophagia, Sore Throat, Throat Swelling, Tongue Swelling, Facial Pain, Neck Pain, Neck Mass, Other - Cardiovascular Cardiovascular: absent: As Per HPI, Acrocyanosis, Chest Pain, Chest Pain at Rest , Chest Pain with Activity, Claudication, Diaphoresis, Dyspnea, Dyspnea on Exertion, Edema, Irregular Heart Rhythm, Pain Radiating to Arm/Neck/Jaw, Leg Edema, Leg Ulcers, Lightheadedness, Orthopnea, Palpitations, Paroxysmal Nocturnal Dyspnea, Pedal Edema, Radiating Pain, Rapid Heart Rate, Slow Heart Rate, Syncope, Other - Respiratory Respiratory: absent: As Per HPI, Cough, Dyspnea, Hemoptysis, Dyspnea on Exertion , Wheezing, Snoring, Stridor, Pain on Inspiration, Chest Congestion, Excessive Mucous Production, Change in Mucous Color, Pain with Coughing, Other - Gastrointestinal Gastrointestinal: absent: As Per HPI, Abdominal Pain, Belching, Bloating, Change in Bowel Habits, Change in Stool Character, Coffee Ground Emesis, Constipation, Cramping, Diarrhea, Dyspepsia, Dysphagia, Early Satiety, Excessive Flatus, Fecal Incontinence, Heartburn, Hematemesis, Hematochezia, Loose Stools, Melena, Nausea, Odynophagia, Temesmus, Vomiting, Other - Genitourinary Genitourinary: As Per HPI - Musculoskeletal Musculoskeletal: Muscle Cramps, Muscle Weakness, Myalgias - Neurological Neurological: As Per HPI, Radicular Pain, Weakness Past Patient History - Infectious Disease Hx of Infectious Diseases: None - Past Medical History & Family History Past Medical History?: Yes Past Family History: Reviewed and not pertinent - Past Social History Smoking Status: Former Smoker Chewing Tobacco Use: No Cigar Use: No Alcohol: Occasional Drugs: Denies Home Situation {Lives}: With Family - CARDIAC Hx Hypertension: Yes - PULMONARY Hx Respiratory Disorders: No - NEUROLOGICAL Hx Neurological Disorder: No - HEENT Hx Cataracts: Yes - RENAL Hx Chronic Kidney Disease: Yes - ENDOCRINE/METABOLIC Hx Endocrine Disorders: No - MUSCULOSKELETAL/RHEUMATOLOGICAL Hx Falls: Yes - GASTROINTESTINAL Hx Gastrointestinal Disorders: No - PSYCHIATRIC Hx Substance Use: No - SURGICAL HISTORY Hx Surgeries: Yes Other/Comment: Rt. kidney transplant . L AVF - ANESTHESIA Hx Anesthesia: Yes Hx Anesthesia Reactions: No Meds Allergies/Adverse Reactions: Allergies Allergy/AdvReac Type Severity Reaction Status Date / Time amoxicillin AdvReac Severe Verified 10/16/17 07:04 - Medications Medications: Current Medications Amlodipine Besylate (Norvasc) 5 mg PO HS [facility] Last Admin: 04/09/18 21:35 Dose: 5 mg Aspirin (Ecotrin) 81 mg PO DAILY [facility] Last Admin: 04/10/18 10:16 Dose: 81 mg Cyclosporine (Cyclosporine) 50 mg PO HS [facility] Last Admin: 04/09/18 21:35 Dose: 50 mg Cyclosporine (Cyclosporine) 75 mg PO QAM [facility] Last Admin: 04/10/18 10:17 Dose: 75 mg Heparin Sodium (Porcine) (Heparin) 5,000 units SC Q8 [facility] Last Admin: 04/10/18 13:28 Dose: 5,000 units Sodium Chloride (Sodium Chloride 0.9%) 1,000 mls @ 100 mls/hr IV .Q10H [facility] Last Admin: 04/10/18 08:00 Dose: Not Given Metoprolol Succinate (Toprol Xl) 50 mg PO BID [facility] Last Admin: 04/10/18 10:15 Dose: 50 mg Mycophenolate Mofetil (Cellcept) 500 mg PO BID [facility] Last Admin: 04/10/18 10:17 Dose: 500 mg Pommp-0-Qtud Ethyl Esters (Lovaza) 1 gm PO BID [facility] Last Admin: 04/10/18 10:15 Dose: 1 gm Prednisone (Prednisone Tab) 5 mg PO DAILY [facility] Last Admin: 04/10/18 10:15 Dose: 5 mg Tramadol HCl (Ultram) 50 mg PO BID PRN PRN Reason: Pain, moderate (4-7) Last Admin: 04/10/18 10:16 Dose: 50 mg Trimethoprim/Sulfamethoxazole (Bactrim Ds Tab) 1 tab PO DAILY [facility] PRN Reason: Protocol Last Admin: 04/10/18 10:15 Dose: 1 tab Physical Exam - Constitutional Appears: No Acute Distress, Chronically Ill - Head Exam Head Exam: ATRAUMATIC, NORMAL INSPECTION - Eye Exam Eye Exam: EOMI, Normal appearance - Neck Exam Neck exam: Positive for: Normal Inspection. Negative for: Tenderness - Respiratory Exam Respiratory Exam: Clear to Auscultation Bilateral, NORMAL BREATHING PATTERN - Cardiovascular Exam Cardiovascular Exam: REGULAR RHYTHM, +S1 - GI/Abdominal Exam GI & Abdominal Exam: Soft. absent: Tenderness - Extremities Exam Extremities exam: Positive for: normal inspection. Negative for: tenderness - Neurological Exam Neurological exam: Alert, CN II-XII Intact - Skin Skin Exam: Dry, Warm Results - Vital Signs Recent Vital Signs: Last Vital Signs Temp 98.6 F 04/10/18 10:14 Pulse 57 L 04/10/18 12:30 Resp 20 04/10/18 10:14 BP 150/77 04/10/18 10:14 Pulse Ox 96 04/10/18 12:13 - Labs Result Diagrams: 04/10/18 07:06 04/10/18 07:06 Labs: Laboratory Results - last 24 hr 04/09/18 04/09/18 04/10/18 12:13 12:29 07:06 WBC RBC Hgb Hct MCV MCH MCHC RDW Plt Count MPV Neut % (Auto) Lymph % (Auto) [place] % (Auto) Eos % (Auto) Baso % (Auto) Neut # (Auto) Lymph # (Auto) [place] # (Auto) Eos # (Auto) Baso # (Auto) Sodium 143 Potassium 3.8 Chloride 109 H Carbon Dioxide 24 Anion Gap 14 BUN 29 H Creatinine 1.3 H Est GFR ( Amer) 48 Est GFR (Non-Af Amer) 40 Random Glucose 95 Hemoglobin A1c Calcium 9.2 Ionized Calcium 4.6 L Phosphorus 3.6 Magnesium 2.0 Total Bilirubin 0.5 AST 32 ALT 25 Alkaline Phosphatase 62 Total Protein 6.1 L Albumin 3.3 L Globulin 2.8 Albumin/Globulin Ratio 1.2 Triglycerides 220 H D Cholesterol 224 H LDL Cholesterol Direct 119 HDL Cholesterol 42 Prolactin 11.5 EBV Capsid Ag IgG Ab 391.00 H EBV Capsid Ag IgM Ab <36.00 EBV Nuclear Antigen Ab <18.00 EBV Interpretation See note 04/10/18 04/10/18 07:06 07:06 WBC 7.2 RBC 4.11 Hgb 10.8 L Hct 32.0 L MCV 77.9 L MCH 26.2 L MCHC 33.6 RDW 16.4 H Plt Count 172 MPV 7.3 Neut % (Auto) 66.8 Lymph % (Auto) 21.8 [place] % (Auto) 10.1 H Eos % (Auto) 0.9 Baso % (Auto) 0.4 Neut # (Auto) 4.8 Lymph # (Auto) 1.6 [place] # (Auto) 0.7 Eos # (Auto) 0.1 Baso # (Auto) 0.0 Sodium Potassium Chloride Carbon Dioxide Anion Gap BUN Creatinine Est GFR ( Amer) Est GFR (Non-Af Amer) Random Glucose Hemoglobin A1c 5.4 Calcium Ionized Calcium Phosphorus Magnesium Total Bilirubin AST ALT Alkaline Phosphatase Total Protein Albumin Globulin Albumin/Globulin Ratio Triglycerides Cholesterol LDL Cholesterol Direct HDL Cholesterol Prolactin EBV Capsid Ag IgG Ab EBV Capsid Ag IgM Ab EBV Nuclear Antigen Ab EBV Interpretation Assessment & Plan (1) History of kidney transplant Status: Acute (2) Seizure Status: Acute (3) HLD (hyperlipidemia) Status: Acute (4) CKD (chronic kidney disease) stage 3, GFR 30-59 ml/min Status: Acute (5) HTN (hypertension) Status: Chronic Priority: Medium - Assessment and Plan (Free Text) Plan: neuro workup check CSA level repeat chemistries
[2018-04-10] MEDS ORDERED: Sodium Chloride 0.9% 1,000 ML IV SCH (16:27)
--- NOTE | 2018-04-10 17:49 | CON ---
DATE: 04/10/2018 ATTENDING PHYSICIAN: Manuel Payne MD LOCATION: The patient is in room number 661, bed 1. REASON FOR CONSULTATION: Seizures. CHIEF COMPLAINT: The patient was brought into [facility] with history of seizures, had been witnessed by her daughter. From neurological point of view, I was called in to evaluate her for further management. HISTORY OF PRESENT ILLNESS: Ms. Joey Kong is a 72-year-old right-handed morbidly obese female presenting with new onset of seizures. She describes that while she was sitting in a chair following coffee, watching TV, the next thing she realized she had a seizure. At the time she woke up, a lot of people were around her. She will get confused. As per the history, she had generalized tonic-clonic activities with a foamy mouth. No history of bowel or bladder incontinence or bitten tongue at the scene. No similar episodes happened in the past. However, she admitted 3 months ago she had a fall and bruised her right side of the face. She could not recall why she fell on the street on opening the door. PAST MEDICAL HISTORY: Significant for hypertension, chronic kidney disease, history of kidney transplant more than 13 years ago. REVIEW OF SYSTEMS: The 12-point system has been reviewed from neuro, new onset of seizures. PERSONAL HISTORY: Denies smoking or alcohol use. ALLERGIES: NO KNOWN ALLERGIES. MEDICATIONS: Bactrim, CellCept, cyclosporin, Ecotrin, Lovaza, amlodipine. PHYSICAL EXAMINATION: VITAL SIGNS: Blood pressure 136/63, mean artery pressure of 89, respiratory rate 18, temperature 97.9, with a pulse rate of 56. NECK: Supple. No carotid bruits. HEART: Heart sounds, significant ejection systolic murmur grade 3 without any secondary sounds split. EXTREMITIES: 1+ pitting edema, right leg externally rotated. NEUROLOGIC EXAMINATION: Mental status examination: Significant retrograde amnesia. No antegrade amnesia. No confabulation. No hallucination. No sign of depression. Speech is clear. Naming, repetition, fluency, comprehension all within normal. Cranial nerve examination: Visual field intact. Pupils reactive to light. Extraocular movement normal. No nystagmus. No facial sensory deficit. No facial asymmetry. Hearing is normal. Tongue is midline. Good gag. Motor examination: Significant weakness of proximal muscle groups in both upper extremities noted. She could not be able to lift against gravity in a sustained fashion. Mild sensory tremor on outstretched hand with eyes closed with limited exam. Same findings noted in both lower extremities, both are 4/5, distally is 5-/5. Deep tendon reflexes: Hyperreflexic on the right side to compare with the left side. Both ankles are absent. Plantars are upgoing on her right side. Sensory examination: Significant small fiber neuropathy, position sense is intact. Coordination: Mild [id number] dysmetria noted, this is probably secondary to her proximal weakness of the muscle groups. Gait is deferred at this time. WORKUP: CT of the head has been reviewed, no acute pathologies noted. Some periventricular ischemic changes noted bilaterally. EKG: Normal sinus rhythm. Blood workup: WBC 6.8, hemoglobin 11.1, hematocrit 33.4, platelets 199. Sodium 144, potassium 4, chloride 107, bicarbonate 25, BUN 34, creatinine 1.5, magnesium 3.9, CRP 18.10. TSH 3.51. Urinalysis: 1+ proteinuria. HIV antibodies negative. CONCLUSION: 1. Ms. Joey Kong as per neurological examination, she is presenting with new onset of seizures with a history of significant fall with no reason 3 months ago. These are all probably secondary to intracranial pathology versus electrolyte imbalance. 2. The current examination also showed evidence of significant bilateral distal symmetric sensory motor neuropathy. 3. Left subcortical dysfunction. 4. The patient also is suffering from possible hidden sleep-related breathing disorder, possible obstructive sleep apnea versus central sleep apnea. RECOMMENDATIONS: 1. Heart murmur with left subcortical dysfunction. Cardiac workup is needed and Cardiology consult should be recommended. 2. Carotid Doppler to assess the stenosis. 3. EEG to rule out any paroxysmal activities. 4. Resume aspirin with current medication. 5. Seizure precaution and fall precaution should be maintained. 6. Physical therapy to improve her gait. 7. Recommended her to have electrodiagnostic studies as outpatient. 8. If EEG is negative, the patient should have ambulatory video electroencephalogram that can be done as outpatient. 9. Considering new onset of seizures unless we find any reason for her seizures, I do not want to put her on any antiepileptic drugs regarding her polypharmacy and antiepileptic drugs could interact with her current medication. 10. The patient should have a polysomnogram to rule out central sleep apnea versus obstructive sleep apnea. Comorbid risk factors have all been discussed including her weight reduction. The patient agreed with all my recommendations. The patient will be followed closely while she is in the hospital. Herb Rahman MD
--- NOTE | 2018-04-10 18:54 | CP.PCM.CON ---
History of Present Illness - History of Present Illness History of Present Illness: I was asked to evaluate patient by Dr Payne. Patient is a 72 year old female with PMH HTN, renal transplant, who presents with seizure. The daughter states she witnessed abnormal jerking motions and foaming at the mouth. She was brought to [facility] for further management. She currently denies chest pain or dyspnea. Review of Systems - Constitutional Constitutional: absent: As Per HPI, Anorexia, Chills, Daytime Sleepiness, Excessive Sweating, Fatigue, Fever, Frequent Falls, Headache, Increased Appetite , Lethargy, Malaise, Night Sweats, Snoring, Sleep Apnea, Weight Gain, Weight Loss, Weakness, Other - EENT Eyes: absent: As Per HPI, Blind Spots, Blurred Vision, Change in Vision, Decreased Night Vision, Diplopia, Discharge, Dry Eye, Exophthalmos, Floaters, Irritation, Itchy Eyes, Loss of Peripheral Vision, Pain, Photophobia, Requires Corrective Lenses, Sees Flashes, Spots in Vision, Tunnel Vision, Other Visual Disturbances, Loss of Vision, Other Ears: absent: As Per HPI, Decreased Hearing, Ear Discharge, Ear Pain, Tinnitus, Abnormal Hearing, Disequilibrium, Dizziness, Other Nose/Mouth/Throat: absent: As Per HPI, Epistaxis, Nasal Congestion, Nasal Discharge, Nasal Obstruction, Nasal Trauma, Nose Pain, Post Nasal Drip, Sinus Pain, Sinus Pressure, Bleeding Gums, Change in Voice, Dental Pain, Dry Mouth, Dysphagia, Halitosis, Hoarsness, Lip Swelling, Mouth Lesions, Mouth Pain, Odynophagia, Sore Throat, Throat Swelling, Tongue Swelling, Facial Pain, Neck Pain, Neck Mass, Other - Cardiovascular Cardiovascular: absent: As Per HPI, Acrocyanosis, Chest Pain, Chest Pain at Rest , Chest Pain with Activity, Claudication, Diaphoresis, Dyspnea, Dyspnea on Exertion, Edema, Irregular Heart Rhythm, Pain Radiating to Arm/Neck/Jaw, Leg Edema, Leg Ulcers, Lightheadedness, Orthopnea, Palpitations, Paroxysmal Nocturnal Dyspnea, Pedal Edema, Radiating Pain, Rapid Heart Rate, Slow Heart Rate, Syncope, Other - Respiratory Respiratory: absent: As Per HPI, Cough, Dyspnea, Hemoptysis, Dyspnea on Exertion , Wheezing, Snoring, Stridor, Pain on Inspiration, Chest Congestion, Excessive Mucous Production, Change in Mucous Color, Pain with Coughing, Other - Gastrointestinal Gastrointestinal: absent: As Per HPI, Abdominal Pain, Belching, Bloating, Change in Bowel Habits, Change in Stool Character, Coffee Ground Emesis, Constipation, Cramping, Diarrhea, Dyspepsia, Dysphagia, Early Satiety, Excessive Flatus, Fecal Incontinence, Heartburn, Hematemesis, Hematochezia, Loose Stools, Melena, Nausea, Odynophagia, Temesmus, Vomiting, Other - Genitourinary Genitourinary: absent: As Per HPI, Change in Urinary Stream, Difficulty Urinating, Dysuria, Flank Pain, Hematuria, Pyuria, Nocturia, Urinary Incontinence, Urinary Frequency, Urinary Hesitance, Urinary Urgency, Voiding Freq/Small Amts, Freq UTI, Hx Renal/Bladder Calculi, Hx /Renal Surgery, Bladder Distension, Other - Musculoskeletal Musculoskeletal: absent: As Per HPI, Abnormal Gait, Arthralgias, Atrophy, Back Pain, Deformity, Joint Swelling, Limited Range of Motion, Loss of Height, Muscle Cramps, Muscle Weakness, Myalgias, Neck Pain, Numbness, Radiating Pain into Limb, Stiffness, Tingling, Other - Integumentary Integumentary: absent: As Per HPI, Acne, Alopecia, Bleeding Lesions, Change in Hair, Change in Nails, Change in Pigmentation, Changing Lesions, Dry Skin, Erythema, Furuncle, Hirsutism, Lesions, New Lesions, Non-Healing Lesions, Photosensitivity, Pruritus, Rash, Skin Pain, Skin Ulcer, Sores, Striae, Swelling , Unusual Bruising, Wounds, Jaundice, Other - Neurological Neurological: Convulsions - Psychiatric Psychiatric: absent: As Per HPI, Abnormal Sleep Pattern, Anhedonia, Anxiety, Auditory Hallucinations, Behavioral Changes, Change in Appetite, Change in Libido, Confusion, Depression, Difficulty Concentrating, Hallucinations, Homicidal Ideation, Hopelessness, Irritability, Memory Loss, Mood Swings, Panic Attacks, Paranoia, Suicidal Ideation, Visual Hallucinations, Tactile Hallucinations, Other - Endocrine Endocrine: absent: As Per HPI, Change in Body Appearance, Change in Libido, Cold Intolorance, Deepening of Voice, Excessive Sweating, Fatigue, Flushing, Heat Intolorance, Increase in Ring/Shoe/Hat Size, Palpitations, Polydipsia, Polyphagia, Polyuria, Other - Hematologic/Lymphatic Hematologic: absent: As Per HPI, Easy Bleeding, Easy Bruising, Lymphadenopathy, Other Past Patient History - Infectious Disease Hx of Infectious Diseases: None - Past Medical History & Family History Past Medical History?: Yes Past Family History: Reviewed and not pertinent - Past Social History Smoking Status: Former Smoker Chewing Tobacco Use: No Cigar Use: No Alcohol: Occasional Drugs: Denies Home Situation {Lives}: With Family - CARDIAC Hx Hypertension: Yes - PULMONARY Hx Respiratory Disorders: No - NEUROLOGICAL Hx Neurological Disorder: No - HEENT Hx Cataracts: Yes - RENAL Hx Chronic Kidney Disease: Yes - ENDOCRINE/METABOLIC Hx Endocrine Disorders: No - MUSCULOSKELETAL/RHEUMATOLOGICAL Hx Falls: Yes - GASTROINTESTINAL Hx Gastrointestinal Disorders: No - PSYCHIATRIC Hx Substance Use: No - SURGICAL HISTORY Hx Surgeries: Yes Other/Comment: Rt. kidney transplant . L AVF - ANESTHESIA Hx Anesthesia: Yes Hx Anesthesia Reactions: No Meds Allergies/Adverse Reactions: Allergies Allergy/AdvReac Type Severity Reaction Status Date / Time amoxicillin AdvReac Severe Verified 10/16/17 07:04 - Medications Medications: Current Medications Amlodipine Besylate (Norvasc) 5 mg PO HS [facility] Last Admin: 04/09/18 21:35 Dose: 5 mg Aspirin (Ecotrin) 81 mg PO DAILY [facility] Last Admin: 04/10/18 10:16 Dose: 81 mg Cyclosporine (Cyclosporine) 50 mg PO HS [facility] Last Admin: 04/09/18 21:35 Dose: 50 mg Cyclosporine (Cyclosporine) 75 mg PO QAM [facility] Last Admin: 04/10/18 10:17 Dose: 75 mg Heparin Sodium (Porcine) (Heparin) 5,000 units SC Q8 [facility] Last Admin: 04/10/18 13:28 Dose: 5,000 units Sodium Chloride (Sodium Chloride 0.9%) 1,000 mls @ 70 mls/hr IV .[id number] [facility] Last Admin: 04/10/18 16:08 Dose: Not Given Metoprolol Succinate (Toprol Xl) 50 mg PO BID [facility] Last Admin: 04/10/18 18:07 Dose: 50 mg Mycophenolate Mofetil (Cellcept) 500 mg PO BID [facility] Last Admin: 04/10/18 18:07 Dose: 500 mg Sdxmr-[id number] Ethyl Esters (Lovaza) 1 gm PO BID [facility] Last Admin: 04/10/18 18:06 Dose: 1 gm Prednisone (Prednisone Tab) 5 mg PO DAILY [facility] Last Admin: 04/10/18 10:15 Dose: 5 mg Rosuvastatin Calcium (Crestor) 5 mg PO HS [facility] Tramadol HCl (Ultram) 50 mg PO BID PRN PRN Reason: Pain, moderate (4-7) Last Admin: 04/10/18 10:16 Dose: 50 mg Trimethoprim/Sulfamethoxazole (Bactrim Ds Tab) 1 tab PO DAILY [facility] PRN Reason: Protocol Last Admin: 04/10/18 10:15 Dose: 1 tab Physical Exam - Constitutional Appears: Non-toxic - Head Exam Head Exam: NORMAL INSPECTION - Eye Exam Eye Exam: Normal appearance - ENT Exam ENT Exam: Mucous Membranes Moist - Neck Exam Neck exam: Positive for: Full Rom - Respiratory Exam Respiratory Exam: NORMAL BREATHING PATTERN - Cardiovascular Exam Cardiovascular Exam: REGULAR RHYTHM, Systolic Murmur - GI/Abdominal Exam GI & Abdominal Exam: Normal Bowel Sounds - Rectal Exam Rectal Exam: Deferred - Extremities Exam Extremities exam: Positive for: pedal pulses present - Back Exam Back exam: NORMAL INSPECTION - Neurological Exam Neurological exam: Alert, Oriented x3 - Psychiatric Exam Psychiatric exam: Normal Mood - Skin Skin Exam: Dry Results - Vital Signs Recent Vital Signs: Last Vital Signs Temp 98.6 F 04/10/18 15:00 Pulse 53 L 04/10/18 16:00 Resp 20 04/10/18 15:00 BP 128/62 04/10/18 15:00 Pulse Ox 96 04/10/18 15:00 - Labs Result Diagrams: 04/11/18 07:13 04/11/18 07:13 Labs: Laboratory Results - last 24 hr 04/09/18 04/09/18 04/10/18 12:13 12:29 07:06 WBC RBC Hgb Hct MCV MCH MCHC RDW Plt Count MPV Neut % (Auto) Lymph % (Auto) [place] % (Auto) Eos % (Auto) Baso % (Auto) Neut # (Auto) Lymph # (Auto) [place] # (Auto) Eos # (Auto) Baso # (Auto) Sodium 143 Potassium 3.8 Chloride 109 H Carbon Dioxide 24 Anion Gap 14 BUN 29 H Creatinine 1.3 H Est GFR ( Amer) 48 Est GFR (Non-Af Amer) 40 Random Glucose 95 Hemoglobin A1c Calcium 9.2 Ionized Calcium 4.6 L Phosphorus 3.6 Magnesium 2.0 Total Bilirubin 0.5 AST 32 ALT 25 Alkaline Phosphatase 62 Total Protein 6.1 L Albumin 3.3 L Globulin 2.8 Albumin/Globulin Ratio 1.2 Triglycerides 220 H D Cholesterol 224 H LDL Cholesterol Direct 119 HDL Cholesterol 42 Prolactin 11.5 EBV Capsid Ag IgG Ab 391.00 H EBV Capsid Ag IgM Ab <36.00 EBV Nuclear Antigen Ab <18.00 EBV Interpretation See note 04/10/18 04/10/18 07:06 07:06 WBC 7.2 RBC 4.11 Hgb 10.8 L Hct 32.0 L MCV 77.9 L MCH 26.2 L MCHC 33.6 RDW 16.4 H Plt Count 172 MPV 7.3 Neut % (Auto) 66.8 Lymph % (Auto) 21.8 [place] % (Auto) 10.1 H Eos % (Auto) 0.9 Baso % (Auto) 0.4 Neut # (Auto) 4.8 Lymph # (Auto) 1.6 [place] # (Auto) 0.7 Eos # (Auto) 0.1 Baso # (Auto) 0.0 Sodium Potassium Chloride Carbon Dioxide Anion Gap BUN Creatinine Est GFR ( Amer) Est GFR (Non-Af Amer) Random Glucose Hemoglobin A1c 5.4 Calcium Ionized Calcium Phosphorus Magnesium Total Bilirubin AST ALT Alkaline Phosphatase Total Protein Albumin Globulin Albumin/Globulin Ratio Triglycerides Cholesterol LDL Cholesterol Direct HDL Cholesterol Prolactin EBV Capsid Ag IgG Ab EBV Capsid Ag IgM Ab EBV Nuclear Antigen Ab EBV Interpretation - EKG Data EKG Interpreted by: Myself Assessment & Plan (1) Aortic stenosis Assessment and Plan: I reviewed the echocardiogram. The patient has moderate , and moderate MR. It is unlikely that this contributed to the patient's symptoms Status: Acute (2) HLD (hyperlipidemia) Assessment and Plan: statin therapy Status: Acute (3) Near syncope Assessment and Plan: medical therapy Status: Acute (4) HTN (hypertension) Assessment and Plan: blood pressure control Status: Chronic Priority: Medium (5) Hyperlipidemia Status: Chronic Priority: Medium
--- NOTE | 2018-04-10 18:54 | CP.PCM.CON ---
History of Present Illness - History of Present Illness History of Present Illness: Patient seen/examined. full consult to follow patient admitted with seizure. has systolic murmur on examination. Echocardiogram reviewed. moderate , moderate mitral annular calcification. neuro work up Past Patient History - Infectious Disease Hx of Infectious Diseases: None - Past Medical History & Family History Past Medical History?: Yes Past Family History: Reviewed and not pertinent - Past Social History Smoking Status: Former Smoker Chewing Tobacco Use: No Cigar Use: No Alcohol: Occasional Drugs: Denies Home Situation {Lives}: With Family - CARDIAC Hx Hypertension: Yes - PULMONARY Hx Respiratory Disorders: No - NEUROLOGICAL Hx Neurological Disorder: No - HEENT Hx Cataracts: Yes - RENAL Hx Chronic Kidney Disease: Yes - ENDOCRINE/METABOLIC Hx Endocrine Disorders: No - MUSCULOSKELETAL/RHEUMATOLOGICAL Hx Falls: Yes - GASTROINTESTINAL Hx Gastrointestinal Disorders: No - PSYCHIATRIC Hx Substance Use: No - SURGICAL HISTORY Hx Surgeries: Yes Other/Comment: Rt. kidney transplant . L AVF - ANESTHESIA Hx Anesthesia: Yes Hx Anesthesia Reactions: No Meds Allergies/Adverse Reactions: Allergies Allergy/AdvReac Type Severity Reaction Status Date / Time amoxicillin AdvReac Severe Verified 10/16/17 07:04 - Medications Medications: Current Medications Amlodipine Besylate (Norvasc) 5 mg PO HS [facility] Last Admin: 04/09/18 21:35 Dose: 5 mg Aspirin (Ecotrin) 81 mg PO DAILY [facility] Last Admin: 04/10/18 10:16 Dose: 81 mg Cyclosporine (Cyclosporine) 50 mg PO HS [facility] Last Admin: 04/09/18 21:35 Dose: 50 mg Cyclosporine (Cyclosporine) 75 mg PO QAM [facility] Last Admin: 04/10/18 10:17 Dose: 75 mg Heparin Sodium (Porcine) (Heparin) 5,000 units SC Q8 [facility] Last Admin: 04/10/18 13:28 Dose: 5,000 units Sodium Chloride (Sodium Chloride 0.9%) 1,000 mls @ 70 mls/hr IV .[id number] [facility] Last Admin: 04/10/18 16:08 Dose: Not Given Metoprolol Succinate (Toprol Xl) 50 mg PO BID [facility] Last Admin: 04/10/18 18:07 Dose: 50 mg Mycophenolate Mofetil (Cellcept) 500 mg PO BID [facility] Last Admin: 04/10/18 18:07 Dose: 500 mg [id number] Ethyl Esters (Lovaza) 1 gm PO BID [facility] Last Admin: 04/10/18 18:06 Dose: 1 gm Prednisone (Prednisone Tab) 5 mg PO DAILY [facility] Last Admin: 04/10/18 10:15 Dose: 5 mg Rosuvastatin Calcium (Crestor) 5 mg PO HS [facility] Tramadol HCl (Ultram) 50 mg PO BID PRN PRN Reason: Pain, moderate (4-7) Last Admin: 04/10/18 10:16 Dose: 50 mg Trimethoprim/Sulfamethoxazole (Bactrim Ds Tab) 1 tab PO DAILY [facility] PRN Reason: Protocol Last Admin: 04/10/18 10:15 Dose: 1 tab Results - Vital Signs Recent Vital Signs: Last Vital Signs Temp 98.6 F 04/10/18 15:00 Pulse 53 L 04/10/18 16:00 Resp 20 04/10/18 15:00 BP 128/62 04/10/18 15:00 Pulse Ox 96 04/10/18 15:00 - Labs Result Diagrams: 04/10/18 07:06 04/10/18 07:06 Labs: Laboratory Results - last 24 hr 04/09/18 04/09/18 04/10/18 12:13 12:29 07:06 WBC RBC Hgb Hct MCV MCH MCHC RDW Plt Count MPV Neut % (Auto) Lymph % (Auto) [place] % (Auto) Eos % (Auto) Baso % (Auto) Neut # (Auto) Lymph # (Auto) [place] # (Auto) Eos # (Auto) Baso # (Auto) Sodium 143 Potassium 3.8 Chloride 109 H Carbon Dioxide 24 Anion Gap 14 BUN 29 H Creatinine 1.3 H Est GFR ( Amer) 48 Est GFR (Non-Af Amer) 40 Random Glucose 95 Hemoglobin A1c Calcium 9.2 Ionized Calcium 4.6 L Phosphorus 3.6 Magnesium 2.0 Total Bilirubin 0.5 AST 32 ALT 25 Alkaline Phosphatase 62 Total Protein 6.1 L Albumin 3.3 L Globulin 2.8 Albumin/Globulin Ratio 1.2 Triglycerides 220 H D Cholesterol 224 H LDL Cholesterol Direct 119 HDL Cholesterol 42 Prolactin 11.5 EBV Capsid Ag IgG Ab 391.00 H EBV Capsid Ag IgM Ab <36.00 EBV Nuclear Antigen Ab <18.00 EBV Interpretation See note 04/10/18 04/10/18 07:06 07:06 WBC 7.2 RBC 4.11 Hgb 10.8 L Hct 32.0 L MCV 77.9 L MCH 26.2 L MCHC 33.6 RDW 16.4 H Plt Count 172 MPV 7.3 Neut % (Auto) 66.8 Lymph % (Auto) 21.8 [place] % (Auto) 10.1 H Eos % (Auto) 0.9 Baso % (Auto) 0.4 Neut # (Auto) 4.8 Lymph # (Auto) 1.6 [place] # (Auto) 0.7 Eos # (Auto) 0.1 Baso # (Auto) 0.0 Sodium Potassium Chloride Carbon Dioxide Anion Gap BUN Creatinine Est GFR ( Amer) Est GFR (Non-Af Amer) Random Glucose Hemoglobin A1c 5.4 Calcium Ionized Calcium Phosphorus Magnesium Total Bilirubin AST ALT Alkaline Phosphatase Total Protein Albumin Globulin Albumin/Globulin Ratio Triglycerides Cholesterol LDL Cholesterol Direct HDL Cholesterol Prolactin EBV Capsid Ag IgG Ab EBV Capsid Ag IgM Ab EBV Nuclear Antigen Ab EBV Interpretation
--- NOTE | 2018-04-11 07:21 | CP.PCM.PN ---
Objective - Vital Signs/Intake and Output Vital Signs (last 24 hours): Temp Pulse Resp BP Pulse Ox 98.2 F 62 20 144/77 95 04/11/18 04:00 04/11/18 04:00 04/11/18 04:00 04/11/18 04:00 04/11/18 04:00 Intake and Output: 04/11/18 04/11/18 06:59 18:59 Intake Total 480 Balance 480 - Medications Medications: Current Medications Amlodipine Besylate (Norvasc) 5 mg PO HS [facility] Last Admin: 04/10/18 21:39 Dose: 5 mg Aspirin (Ecotrin) 81 mg PO DAILY [facility] Last Admin: 04/10/18 10:16 Dose: 81 mg Cyclosporine (Cyclosporine) 50 mg PO HS [facility] Last Admin: 04/10/18 21:40 Dose: 50 mg Cyclosporine (Cyclosporine) 75 mg PO QAM [facility] Last Admin: 04/10/18 10:17 Dose: 75 mg Heparin Sodium (Porcine) (Heparin) 5,000 units SC Q8 [facility] Last Admin: 04/11/18 05:49 Dose: 5,000 units Sodium Chloride (Sodium Chloride 0.9%) 1,000 mls @ 70 mls/hr IV .[id number] [facility] Last Admin: 04/10/18 16:08 Dose: Not Given Metoprolol Succinate (Toprol Xl) 50 mg PO BID [facility] Last Admin: 04/10/18 18:07 Dose: 50 mg Mycophenolate Mofetil (Cellcept) 500 mg PO BID [facility] Last Admin: 04/10/18 18:07 Dose: 500 mg Syrgw-7-Peht Ethyl Esters (Lovaza) 1 gm PO BID [facility] Last Admin: 04/10/18 18:06 Dose: 1 gm Prednisone (Prednisone Tab) 5 mg PO DAILY [facility] Last Admin: 04/10/18 10:15 Dose: 5 mg Rosuvastatin Calcium (Crestor) 10 mg PO HS [facility] Tramadol HCl (Ultram) 50 mg PO BID PRN PRN Reason: Pain, moderate (4-7) Last Admin: 04/11/18 01:07 Dose: 50 mg Trimethoprim/Sulfamethoxazole (Bactrim Ds Tab) 1 tab PO DAILY [facility] PRN Reason: Protocol Last Admin: 04/10/18 10:15 Dose: 1 tab - Labs Labs: 04/10/18 07:06 04/10/18 07:06
[2018-04-11 07:33] LABS: BASO % 0.4 % (0.0-2.0); EOS # 0.1 K/uL (0.0-0.7); EOS % 1.2 % (0.0-4.0); HEMOGLOBIN 11.2 g/dL (11.0-16.0); LYMPH # 1.8 K/uL (1.0-4.3); LYMPH % 23.1 % (20.0-40.0); MEAN CELL VOLUME 77.5 fL (81.0-99.0); MEAN CORPUSCULAR HEMOGLOBIN 26.2 pg (27.0-31.0); MEAN CORPUSCULAR HGB CONC 33.8 g/dL (33.0-37.0); MEAN PLATELET VOLUME 7.3 fL (7.2-11.7); MONO # 0.8 K/uL (0.0-0.8); NEUT # 4.9 K/uL (1.8-7.0); NEUT % 64.3 % (50.0-75.0); RBC 4.26 Mil/uL (3.80-5.20); RED CELL DISTRIBUTION WIDTH 16.2 % (11.5-14.5); WHITE BLOOD COUNT 7.6 K/uL (4.8-10.8)
[2018-04-11 07:54] LABS: ALB/GLOB RATIO 1.3 (1.0-2.1); ALBUMIN 3.6 g/dL (3.5-5.0)
[2018-04-11] MEDS: Omega-3-Acid Ethyl Esters 1 GM Cap PO SCH ×2 (09:53→17:21)
[2018-04-11] MEDS: Tmp-Smz 800 mg-160 mg DS Tab PO SCH (09:53)
[2018-04-11] MEDS: Metoprolol Succinate 50 mg XL Tab PO SCH ×2 (09:53→17:21)
[2018-04-11] MEDS: CYCLOSPORINE, MODIFIED 25 MG CAP PO SCH (09:55)
--- NOTE | 2018-04-11 10:12 | CP.PCM.PN ---
Subjective - Date & Time of Evaluation Date of Evaluation: 04/11/18 Time of Evaluation: 10:10 - Subjective Subjective: feels well; no new complaint no more seizure activity s/p echo- results noted renal function stable Objective - Vital Signs/Intake and Output Vital Signs (last 24 hours): Temp Pulse Resp BP Pulse Ox 98.4 F 62 20 139/54 L 96 04/11/18 09:02 04/11/18 09:52 04/11/18 09:02 04/11/18 09:52 04/11/18 09:02 Intake and Output: 04/11/18 04/11/18 06:59 18:59 Intake Total 480 Balance 480 - Medications Medications: Current Medications Amlodipine Besylate (Norvasc) 5 mg PO HS [facility] Last Admin: 04/10/18 21:39 Dose: 5 mg Aspirin (Ecotrin) 81 mg PO DAILY [facility] Last Admin: 04/11/18 09:53 Dose: 81 mg Cyclosporine (Cyclosporine) 50 mg PO HS [facility] Last Admin: 04/10/18 21:40 Dose: 50 mg Cyclosporine (Cyclosporine) 75 mg PO QAM [facility] Last Admin: 04/11/18 09:55 Dose: 75 mg Heparin Sodium (Porcine) (Heparin) 5,000 units SC Q8 [facility] Last Admin: 04/11/18 05:49 Dose: 5,000 units Sodium Chloride (Sodium Chloride 0.9%) 1,000 mls @ 70 mls/hr IV .[id number] [facility] Last Admin: 04/10/18 16:08 Dose: Not Given Metoprolol Succinate (Toprol Xl) 50 mg PO BID [facility] Last Admin: 04/11/18 09:53 Dose: 50 mg Mycophenolate Mofetil (Cellcept) 500 mg PO BID [facility] Last Admin: 04/11/18 09:54 Dose: 500 mg Egxxt-5-Tcca Ethyl Esters (Lovaza) 1 gm PO BID [facility] Last Admin: 04/11/18 09:53 Dose: 1 gm Prednisone (Prednisone Tab) 5 mg PO DAILY [facility] Last Admin: 04/11/18 09:53 Dose: 5 mg Rosuvastatin Calcium (Crestor) 10 mg PO HS [facility] Tramadol HCl (Ultram) 50 mg PO BID PRN PRN Reason: Pain, moderate (4-7) Last Admin: 04/11/18 01:07 Dose: 50 mg Trimethoprim/Sulfamethoxazole (Bactrim Ds Tab) 1 tab PO DAILY [facility] PRN Reason: Protocol Last Admin: 04/11/18 09:53 Dose: 1 tab - Labs Labs: 04/11/18 07:13 04/11/18 07:13 - Constitutional Appears: No Acute Distress, Chronically Ill - Head Exam Head Exam: ATRAUMATIC, NORMAL INSPECTION - Eye Exam Eye Exam: EOMI, Normal appearance - Neck Exam Neck Exam: Normal Inspection. absent: Tenderness - Respiratory Exam Respiratory Exam: Clear to Ausculation Bilateral, NORMAL BREATHING PATTERN - Cardiovascular Exam Cardiovascular Exam: REGULAR RHYTHM, +S1 - GI/Abdominal Exam GI & Abdominal Exam: Soft. absent: Tenderness - Extremities Exam Extremities Exam: Normal Inspection. absent: Tenderness - Neurological Exam Neurological Exam: Alert, CN II-XII Intact - Skin Skin Exam: Dry, Warm Assessment and Plan (1) History of kidney transplant Status: Acute (2) Seizure Status: Acute (3) HLD (hyperlipidemia) Status: Acute (4) CKD (chronic kidney disease) stage 3, GFR 30-59 ml/min Status: Acute (5) HTN (hypertension) Status: Chronic - Assessment and Plan (Free Text) Plan: same immunosuppressants check CSA level neuro workup and rx
--- NOTE | 2018-04-11 10:44 | PN ---
DATE: 04/11/2018 TIME OF EVALUATION: 06:40 a.m. NEUROLOGICAL PROBLEM: New onset of seizures. VITAL SIGNS: Blood pressure 144/77, mean arterial pressure of 99, respiratory rate 18, temperature 98.2, pulse rate 62 and regular. The patient slept good. No new complaints except lying down on his back which bothers her. The patient did have a workup as recommended. So far, the workup was negative. Electroencephalogram will be reviewed. The patient was seen by detective supervisor and also cleared from his cardiac point of view. His recent blood workup including hemoglobin 10.8, hematocrit 32, platelet of 172, ESR 24, total protein 6.1, albumin 3.3, triglyceride 220, cholesterol 224, LDL 119, TSH 3.21. Followup prolactin level is 11.5. RECOMMENDATIONS: If all workup is negative, the patient can be discharged, the patient should be followed as outpatient. Recommended further workup including ambulatory electroencephalogram and polysomnogram should be scheduled as outpatient. Still I do not want to add any antiepileptic drugs due to her polypharmacy and drug interaction. Seizure precaution has been discussed with her. The patient will be followed closely with you. If the patient is discharged, she should be following me as outpatient. Herb Rahman MD
[2018-04-11 11:29] VITALS: TEMP 98.9
[2018-04-11 15:57] VITALS: BP 110/64
[2018-04-11 16:28] VITALS: PULSE 56
--- NOTE | 2018-04-11 16:51 | CP.PCM.DIS ---
Provider - Provider Date of Admission: 04/09/18 09:46 Attending physician: Manuel Payne Jr, MD Time Spent in preparation of Discharge (in minutes): 40 Hospital Course - Lab Results Lab Results: Most Recent Lab Values WBC 7.6 K/uL (4.8-10.8) 04/11/18 07:13 RBC 4.26 Mil/uL (3.80-5.20) 04/11/18 07:13 Hgb 11.2 g/dL (11.0-16.0) 04/11/18 07:13 Hct 33.0 % (34.0-47.0) L 04/11/18 07:13 MCV 77.5 fL (81.0-99.0) L 04/11/18 07:13 MCH 26.2 pg (27.0-31.0) L 04/11/18 07:13 MCHC 33.8 g/dL (33.0-37.0) 04/11/18 07:13 RDW 16.2 % (11.5-14.5) H 04/11/18 07:13 Plt Count 171 K/uL (130-400) 04/11/18 07:13 MPV 7.3 fL (7.2-11.7) 04/11/18 07:13 Neut % (Auto) 64.3 % (50.0-75.0) 04/11/18 07:13 Lymph % (Auto) 23.1 % (20.0-40.0) 04/11/18 07:13 [place] % (Auto) 11.0 % (0.0-10.0) H 04/11/18 07:13 Eos % (Auto) 1.2 % (0.0-4.0) 04/11/18 07:13 Baso % (Auto) 0.4 % (0.0-2.0) 04/11/18 07:13 Neut # (Auto) 4.9 K/uL (1.8-7.0) 04/11/18 07:13 Lymph # (Auto) 1.8 K/uL (1.0-4.3) 04/11/18 07:13 [place] # (Auto) 0.8 K/uL (0.0-0.8) 04/11/18 07:13 Eos # (Auto) 0.1 K/uL (0.0-0.7) 04/11/18 07:13 Baso # (Auto) 0.0 K/uL (0.0-0.2) 04/11/18 07:13 ESR 24 mm/hr (0-20) H 04/09/18 12:13 Sodium 142 mmol/L (132-148) 04/11/18 07:13 Potassium 4.0 mmol/L (3.6-5.2) 04/11/18 07:13 Chloride 105 mmol/L (98-107) 04/11/18 07:13 Carbon Dioxide 27 mmol/L (22-30) 04/11/18 07:13 Anion Gap 14 (10-20) 04/11/18 07:13 BUN 22 mg/dL (7-17) H 04/11/18 07:13 Creatinine 1.4 mg/dL (0.7-1.2) H 04/11/18 07:13 Est GFR ( Amer) 44 04/11/18 07:13 Est GFR (Non-Af Amer) 37 04/11/18 07:13 POC Glucose (mg/dL) 94 mg/dL (65-110) 04/09/18 07:53 Random Glucose 89 mg/dL (65-105) 04/11/18 07:13 Hemoglobin A1c 5.4 % (4.2-6.5) 04/10/18 07:06 Calcium 9.0 mg/dl (8.6-10.4) 04/11/18 07:13 Ionized Calcium 4.6 mg/dL (4.80-5.60) L 04/09/18 12:29 Phosphorus 3.4 mg/dL (2.5-4.5) 04/11/18 07:13 Magnesium 2.0 mg/dL (1.6-2.3) 04/11/18 07:13 Total Bilirubin 0.6 mg/dL (0.2-1.3) 04/11/18 07:13 AST 40 U/L (14-36) H D 04/11/18 07:13 ALT 18 U/L (9-52) 04/11/18 07:13 Alkaline Phosphatase 68 U/L (38-126) 04/11/18 07:13 Total Creatine Kinase 131 U/L (30-135) 04/09/18 08:48 CK-MB (Mass) 2.32 ng/mL (0.0-3.38) 04/09/18 08:48 Troponin I 0.0250 ng/mL (0.00-0.120) 04/09/18 08:48 C-Reactive Protein 18.10 mg/L (0.0-9.9) H 04/09/18 12:13 Total Protein 6.3 g/dL (6.3-8.3) 04/11/18 07:13 Albumin 3.6 g/dL (3.5-5.0) 04/11/18 07:13 Globulin 2.7 gm/dL (2.2-3.9) 04/11/18 07:13 Albumin/Globulin Ratio 1.3 (1.0-2.1) 04/11/18 07:13 Triglycerides 220 mg/dL (0-149) H D 04/10/18 07:06 Cholesterol 224 mg/dL (0-199) H 04/10/18 07:06 LDL Cholesterol Direct 119 mg/dL (0-129) 04/10/18 07:06 HDL Cholesterol 42 mg/dL (30-70) 04/10/18 07:06 Free T4 1.39 ng/dL (0.78-2.19) 04/09/18 12:13 TSH 3rd Generation 3.51 mIU/L (0.46-4.68) 04/09/18 12:13 Prolactin 11.5 ng/mL (3.0-18.9) 04/10/18 07:06 Urine Color Yellow (YELLOW) 04/09/18 08:09 Urine Clarity Clear (Clear) 04/09/18 08:09 Urine pH 5.0 (5.0-8.0) 04/09/18 08:09 Ur Specific [place] 1.013 (1.003-1.030) 04/09/18 08:09 Urine Protein 1+ mg/dL (NEGATIVE) H 04/09/18 08:09 Urine Glucose (UA) Normal mg/dL (Normal) 04/09/18 08:09 Urine Ketones Negative mg/dL (NEGATIVE) 04/09/18 08:09 Urine Blood Negative (NEGATIVE) 04/09/18 08:09 Urine Nitrate Negative (NEGATIVE) 04/09/18 08:09 Urine Bilirubin Negative (NEGATIVE) 04/09/18 08:09 Urine Urobilinogen Normal mg/dL (0.2-1.0) 04/09/18 08:09 Ur Leukocyte Esterase Trace [place]/uL (Negative) 04/09/18 08:09 Urine RBC (Auto) < 1 /hpf (0-3) 04/09/18 08:09 CMV IgG Ab 8.80 U/mL H 04/09/18 12:13 CMV IgM Ab <30.00 AU/mL 04/09/18 12:13 EBV Capsid Ag IgG Ab 391.00 U/mL H 04/09/18 12:13 EBV Capsid Ag IgM Ab <36.00 U/mL 04/09/18 12:13 EBV Nuclear Antigen Ab <18.00 U/mL 04/09/18 12:13 EBV Interpretation See note 04/09/18 12:13 HIV 1&2 Antibody Screen Negative (NEGATIVE) 04/09/18 12:13 - Hospital Course Hospital Course: Code status: full code Advanced directives: denies Healthcare proxy: daughter Robin Kong [phone] HPI: 72 year old female with past medical history of HLD, HTN, ESRD secondary to HTN status post right kidney transplant in 2002 who presented to the ED for evaluation of seizure-like activity. Patient lives with her daughter, and the daughter was awoken to the patient making sounds. Daughter observed the patient in the chair shaking and "in spasm" with foam coming from her mouth. Daughter states that afterwards patient was unresponsive for 5 minutes, at which point she called 9-1-1. Patient states she normally sleeps in her chair because she "is afraid to be in bed" since her bedroom is on a separate level of their home as the kitchen and bathroom and would require her to use stairs. She does not remember what happened and "woke up with everyone around me." Both patient and daughter report that this is the first occurrence, denies history of seizures. Patient reports dizziness with change of position and cough. Patient denies fever/chills, chest pain, shortness of breath, abdominal pain, nausea/vomiting/ diarrhea/constipation. PMD: Dr. Stokes -Per patient and family, patient sees interventional physiatrist Dr. 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 Past surgical history: bilateral cataracts (1999), laminectomy x2 L2-L3 and L4- L5 (2008, 2010), spinal stimulator placement (2016) Medications: Metoprolol 50mg PO BID, Norvasc 5mg PO QHS, Cellcept 500mg PO BID, Cyclosporine 75mg PO QAM and 50mg PO QHS, Prednisone 5mg PO QD, Bactrim DS 1 tab PO QD, Lovaza 1000mg 2 tabs PO QD, Tramadol 50mg PO BID Allergies: amoxicillin (swelling, dyspnea) Family history: son at age 45, history of Wiskott-Jeremías syndrome Social history: light smoker 40+ years ago; rare alcohol drinker; denies drug use; lives with daughter Hospital Course: During this admission, patient was diagnosed with new onset seizure, history of renal transplant/ESRD, history of HTN, history of HLD. During this admission, cardiology Dr. Murphy, neurology Dr. Rahman, and nephrology Dr. Stokes ( answered by Dr. Bro) were consulted. Patient has been stable with no further acute events with stable lab work. Etiology of initial seizure activity will need continued outpatient work-up per neurology Dr. Rahman. Electroencephalogram was ordered and performed; results were negative per Dr. Rahman. Per cardiology Dr. Murphy, patient will need outpatient cardiology follow up as well, but unlikely that aortic stenosis contributed to symptoms. Renal function has been stable with home medications continued per nephrology Dr. Bro. Viral studies were performed due to immunosuppression post kidney transplant, negative HIV 1& 2 antibody screen, EBV IgG antibody 391, CMV IgG antibody 8.8. Patient is stable for discharge. Please start all home medications. Please make an appointment with neurology Dr. Rahman. [address] [place] [phone] Please call to make an appointment with caridologist Dr. Murphy: [address] [facility], [place] [phone] # Please follow up with PMD Dr. Payne. Please return to the emergency room if symptoms return or worsen. This is a summary of the patient's hospital course, please refer to full EMR for further details. Discharge Exam - Head Exam Head Exam: NORMAL INSPECTION - Eye Exam Eye Exam: EOMI, Normal appearance, PERRL Pupil Exam: NORMAL ACCOMODATION - ENT Exam ENT Exam: Mucous Membranes Moist - Respiratory Exam Respiratory Exam: Clear to PA & Lateral, NORMAL BREATHING PATTERN - Cardiovascular Exam Cardiovascular Exam: REGULAR RHYTHM, +S1, +S2, Systolic Murmur - GI/Abdominal Exam GI & Abdominal Exam: Normal Bowel Sounds, Soft. absent: Tenderness - Extremities Exam Extremities exam: normal inspection - Neurological Exam Neurological exam: Alert, Oriented x3 - Psychiatric Exam Psychiatric exam: Normal Affect, Normal Mood - Skin Skin Exam: Normal Color Discharge Plan - Follow Up Plan Condition: GOOD Disposition: HOME/ ROUTINE
[2018-04-12 07:57] VITALS: O2SAT 96
[2018-04-12 12:13] LABS: % CD4 (T HELPER CELL) 43 Percent (30-61); % CD8 (SUPPRESSOR T CELL) 41 Percent (12-42); ABSOLUTE CD4 CELLS 587 Cells/mcL (490-1740); ABSOLUTE CD8 CELLS 569 Cells/mcL (180-1170); ABSOLUTE LYMPHOCYTES 1379 Cells/mcL (850-3900); HELPER/SUPPRESSOR RATIO 1.03 Ratio (0.86-5.00)
== END 2018-04-11 18:46 | disposition home or self-care (01) | DRG 101 ==
LOC: C.ER 07:21 → C.9E 09:46 → C.6T 14:14
PROVIDERS: ADMIT Internal Medicine; ATTEND Internal Medicine
DX: R56.9 Unspecified convulsions (principal); Z94.0 Kidney transplant status; I12.9 Hypertensive chronic kidney disease with stage 1 through stage 4 chronic kidney disease, or unspecified chronic kidney disease; E66.01 Morbid (severe) obesity due to excess calories; Z68.30 Body mass index [BMI] 30.0-30.9, adult; E78.5 Hyperlipidemia, unspecified; Z87.891 Personal history of nicotine dependence; N18.3 Chronic kidney disease, stage 3 (moderate); G62.9 Polyneuropathy, unspecified; G47.33 Obstructive sleep apnea (adult) (pediatric); I35.0 Nonrheumatic aortic (valve) stenosis; R55 Syncope and collapse

== ENCOUNTER 2018-06-24 10:35 | Observation (INO) | payer MEDICARE, OTHER ==
[2018-06-24 10:35] VITALS: BMI 30.2
[2018-06-24] MEDS ORDERED: levETIRAcetam 500 MG in Sodium Chloride 0.9% 100 ML IVPB STA (12:14)
[2018-06-24 12:33] LABS: EOS % 0.5 % (0.0-4.0); NRBC % 0.1 % (0.0-2.0)
[2018-06-24 12:39] LABS: SQUAMOUS EPITHIAL < 1 /hpf (0-5); URINE BILIRUBIN NEGATIVE (NEGATIVE); URINE BLOOD NEGATIVE (NEGATIVE); URINE CLARITY Clear (Clear); URINE COLOR Yellow (YELLOW); URINE GLUCOSE (UA) NORMAL (Normal); URINE LEUKOCYTE ESTERASE NEG Leu/uL (Negative); URINE PROTEIN 1+ mg/dL (NEGATIVE); URINE UROBILINOGEN NORMAL mg/dL (0.2-1.0)
[2018-06-24 12:47] LABS: BASO % 0.5 % (0.0-2.0); LYMPH # 1.6 K/uL (1.0-4.3); LYMPH % 16.8 % (20.0-40.0); MEAN CELL VOLUME 77.3 fL (81.0-99.0); MEAN CORPUSCULAR HEMOGLOBIN 25.2 pg (27.0-31.0); MEAN CORPUSCULAR HGB CONC 32.6 g/dL (33.0-37.0); MONO % 10.3 % (0.0-10.0); NEUT # 6.6 K/uL (1.8-7.0); NEUT % 71.9 % (50.0-75.0); RBC 3.96 Mil/uL (3.80-5.20); RED CELL DISTRIBUTION WIDTH 15.9 % (11.5-14.5); WHITE BLOOD COUNT 9.2 K/uL (4.8-10.8)
[2018-06-24 13:14] LABS: ALB/GLOB RATIO 1.6 (1.0-2.1); ALBUMIN 3.5 g/dL (3.5-5.0); CALCIUM 8.8 mg/dl (8.6-10.4)
--- NOTE | 2018-06-24 13:18 | C.PDOC ---
History Of Present Illness 72 y/o female with PMHx of HTN, renal disease s/p kidney transplant, brought in by ambulance and family for evaluation of seizure at home. Of note, patient was evaluated here in March 2018 with new onset seizure disorder. She had normal Head CT x2 on that day, and has had a total of [address] scans. Cardiac echocardiogram from that visit also showed valvular disease. Daughter at bedside describes witnessing tonic clonic seizure activity with LOC, and eyes rolling back, just prior to arrival. Patient then had a brief 15 min post-ictal period, and is now back at baseline as per daughter. Denies injury, chest pain, SOB, changes in vision, changes in speech, weakness, numbness, tongue biting, or incontinence. Time Seen by Provider: 06/24/18 12:05 Chief Complaint (Nursing): Seizure History Per: Family History/Exam Limitations: no limitations Recent Seizure Activity Began: Just Before Arrival Number Of Seizures: One Post-ictal Period: Duration In Mins: (15) Additional History Per: EMS Past Medical History Reviewed: Historical Data, Nursing Documentation, Vital Signs Vital Signs: Last Vital Signs Temp 99.3 F 06/24/18 10:42 Pulse 62 06/24/18 14:22 Resp 18 06/24/18 14:22 BP 132/51 L 06/24/18 14:22 Pulse Ox 100 06/24/18 14:22 - Medical History PMH: HTN, Hypercholesterolemia, Chronic Kidney Disease, Seizures Other Surgeries: Kidney transplant - [facility] Procedures MEASURE OF ARTERIAL PRESSURE, PERIPHERAL, TOOL ADJUSTER APPROACH (09/01/17) MEASUREMENT OF CARDIAC RHYTHM, EXTERNAL APPROACH (09/01/17) Family History: States: Unknown Family Hx - Social History Hx Alcohol Use: No Hx Substance Use: No - Immunization History Hx Tetanus Toxoid Vaccination: No Hx Influenza Vaccination: Yes Hx Pneumococcal Vaccination: Yes (also recvd TB) Review Of Systems Eyes: Negative for: Vision Change Cardiovascular: Negative for: Chest Pain Respiratory: Negative for: Shortness of Breath Neurological: Positive for: Seizures. Negative for: Weakness, Numbness, Incoordination, Change in Speech Physical Exam - Physical Exam Appears: Non-toxic, No Acute Distress, Other (Obese elderly female) Skin: Normal Color, Warm, Dry Head: Atraumatic, Normacephalic Eye(s): bilateral: Normal Inspection, EOMI Oral Mucosa: Moist Tongue: Normal Appearing, No Bite, No Laceration Teeth: Normal Dentition Neck: Normal ROM, No Midline Cervical Tenderness, No Paracervical Tenderness, Supple Chest: Symmetrical Cardiovascular: Rhythm Regular, No Murmur Respiratory: Normal Breath Sounds, No Rales, No Rhonchi, No Wheezing Gastrointestinal/Abdominal: Soft, No Tenderness, No Distention Back: Normal Inspection, No Vertebral Tenderness Extremity: Bilateral: Atraumatic, Normal Color And Temperature, Normal ROM Neurological/Psych: Other (At baseline as per daughter at beside) ED Course And Treatment - Laboratory Results Result Diagrams: 06/24/18 12:30 06/24/18 12:46 Lab Interpretation: Abnormal (+ microcytic anemia, mild, UA neg.) ECG: Interpreted By Me ECG Rhythm: Sinus Rhythm ECG Interpretation: Normal Rate From EC O2 Sat by Pulse Oximetry: 99 (RA) Pulse Ox Interpretation: Normal - Radiology CXR: Interpreted by Me CXR Interpretation: Yes: No Acute Disease Progress Note: keppra IV Reevaluation Time: 13:20 - Physician Consult Information Outcome Of Conversation: 1315: d/w Dr. Payne- PMD and prior Adm to same- ok to admit. Discussed with Haris Washburn Medical Decision Making Medical Decision Making: recurrent seizure. first szr 04/[address]'s all wnl No current szr meds Keppra IV started adm Disposition Doctor Will See Patient In The: Hospital Counseled Patient/Family Regarding: Studies Performed, Diagnosis - Disposition Disposition: HOSPITALIZED Disposition Time: 13:21 Condition: GOOD - Clinical Impression Clinical Impression: Seizure - Scribe Statement The provider has reviewed the documentation as recorded by the Ramon Delarosa Provider Attestation: All medical record entries made by the Ramon were at my direction and personally dictated by me. I have reviewed the chart and agree that the record accurately reflects my personal performance of the history, physical exam, medical decision making, and the department course for this patient. I have also personally directed, reviewed, and agree with the discharge instructions and disposition.
[2018-06-24 13:26] LABS: BARBITURATES, UR NEGATIVE (NEGATIVE); BENZODIAZEPINES, UR NEGATIVE (NEGATIVE); OPIATES, UR NEGATIVE (NEGATIVE); PHENCYCLIDINE, UR NEGATIVE (NEGATIVE)
--- NOTE | 2018-06-24 13:30 | RAD ---
Date of service: 06/24/2018 PROCEDURE: CHEST RADIOGRAPH, 1 VIEW HISTORY: Seizure COMPARISON: 04/09/2018 FINDINGS: LUNGS: Clear. PLEURA: No pneumothorax or pleural fluid seen. CARDIOVASCULAR: Normal OSSEOUS STRUCTURES: Spinal stimulator noted. VISUALIZED UPPER ABDOMEN: Normal. OTHER FINDINGS: None. IMPRESSION: No active disease.
--- NOTE | 2018-06-24 17:25 | CT ---
Date of service: 06/24/2018 PROCEDURE: CT HEAD WITHOUT CONTRAST. HISTORY: Recurrent seizures COMPARISON: 04/09/2018. TECHNIQUE: Axial computed tomography images were obtained through the head/brain without intravenous contrast. Coronal and sagittal reconstructed images. Radiation dose: Total exam DLP = 977.57 mGy-cm. This CT exam was performed using one or more of the following dose reduction techniques: Automated exposure control, adjustment of the mA and/or kV according to patient size, and/or use of iterative reconstruction technique. FINDINGS: HEMORRHAGE: No intracranial hemorrhage. BRAIN: No mass effect or edema. Stable atrophy and chronic microvascular ischemic changes. VENTRICLES: Unremarkable. No hydrocephalus. CALVARIUM: Unremarkable. PARANASAL SINUSES: Unremarkable as visualized. No significant inflammatory changes. MASTOID AIR CELLS: Unremarkable as visualized. No inflammatory changes. OTHER FINDINGS: None. IMPRESSION: No acute intracranial abnormalities. No significant findings to account for the clinical presentation. No significant interval change compared to the prior examination(s).
--- NOTE | 2018-06-24 18:15 | CP.PCM.HP ---
History of Present Illness - History of Present Illness History of Present Illness: Pt is a 72yo female with a PMH of HLD, HTN, ESRD secondary to HTN status post renal trasnplant in 2002. Pt was hospitalized March 2018 for a seizure where she had 2 neg [address]s and was instructed to follow up with neurology, with which she did not comply. Pt reports feeling weak and unbalanced this morning and had to be helped to the bathroom by her daughter. Afterwards, she was assisted to sit down in a chair where she sustained a 5 minute seizure according to the daughter. Daughter describes the seizure as constant shaking with tongue biting and cyanosis. She remained sitting down post-ictal for another 15 minutes. She was immediately brought to [facility] ED by ambulance. Pt does not recall the seizure but can remember events before and after. Pt denies loss of bowel control during her episode. Pt reports bilateral shoulder pain. She denies any chest pain, N/V, SOB, dizziness or lightheadedness. Denies loss of vision. PMH as stated above PSH Renal transplant 2002. Lumbar spine laminectomy unsure of year Medications: Metoprolol 50mg PO BID, Norvasc 5mg PO QHS, Cellcept 500mg PO BID, Cyclosporine 75mg PO QAM and 50mg PO QHS, Prednisone 5mg PO QD, Bactrim DS 1 tab PO QD, Lovaza 1000mg 2 tabs PO QD, Tramadol 50mg PO BID Allergies: amoxicillin (swelling, dyspnea) Family history: son at age 45, history of Wiskott-Jeremías syndrome Social history: light smoker 40+ years ago; rare alcohol drinker; denies drug use; lives with daughter PMD: Dr. Stokes Present on Admission - Present on Admission Any Indicators Present on Admission: No History of DVT/PE: No History of Uncontrolled Diabetes: No Urinary Catheter: No Decubitus Ulcer Present: No Review of Systems - Review of Systems All systems: reviewed and no additional remarkable complaints except (fatigue) - Constitutional Constitutional: Chills, Headache. absent: Weight Gain, Weight Loss - EENT Eyes: As Per HPI. absent: Change in Vision Ears: absent: Tinnitus, Dizziness Nose/Mouth/Throat: Mouth Lesions Additional comments: Markedly cyanotic and ecchymotic tip of tongue. - Cardiovascular Cardiovascular: absent: Chest Pain, Lightheadedness, Palpitations, Pedal Edema, Radiating Pain - Respiratory Respiratory: Cough. absent: Wheezing, Pain on Inspiration, Pain with Coughing - Gastrointestinal Gastrointestinal: absent: Change in Stool Character, Diarrhea, Dysphagia - Genitourinary Genitourinary: absent: Urinary Frequency, Freq UTI - Musculoskeletal Musculoskeletal: Back Pain Additional comments: bilateral shoulder pain - Integumentary Integumentary: absent: Change in Pigmentation, Rash, Swelling, Jaundice - Neurological Neurological: Headaches, Syncope Additional comments: Seizure Past Patient History - Infectious Disease Hx of Infectious Diseases: None - Tetanus Immunizations Tetanus Immunization: Unknown - Past Medical History & Family History Past Medical History?: Yes - Past Social History Smoking Status: Former Smoker Alcohol: None Drugs: Denies Home Situation {Lives}: With Family - CARDIAC Hx Hypercholesterolemia: Yes Hx Hypertension: Yes - PULMONARY Hx Respiratory Disorders: No - NEUROLOGICAL Hx Seizures: Yes (March 2018) - HEENT Hx Cataracts: Yes - RENAL Hx Chronic Kidney Disease: Yes Other/Comment: Renal Transplant - ENDOCRINE/METABOLIC Hx Endocrine Disorders: No - MUSCULOSKELETAL/RHEUMATOLOGICAL Hx Falls: Yes - GASTROINTESTINAL Hx Gastrointestinal Disorders: No - PSYCHIATRIC Hx Substance Use: No - SURGICAL HISTORY Hx Surgeries: Yes Other/Comment: Rt. kidney transplant . L AVF - ANESTHESIA Hx Anesthesia: Yes Hx Anesthesia Reactions: No Hx Malignant Hyperthermia: No Meds Allergies/Adverse Reactions: Allergies Allergy/AdvReac Type Severity Reaction Status Date / Time amoxicillin AdvReac Severe Verified 06/24/18 10:46 Physical Exam - Constitutional Appears: No Acute Distress Additional comments: fatigued - Head Exam Head Exam: ATRAUMATIC, NORMAL INSPECTION - Eye Exam Eye Exam: EOMI, Normal appearance Pupil Exam: NORMAL ACCOMODATION - ENT Exam Additional comments: tip of tongue has cynosis and ecchymosis - Neck Exam Neck exam: Positive for: Full Rom - Respiratory Exam Respiratory Exam: Wheezes (Left lower christine field) - Cardiovascular Exam Cardiovascular Exam: RRR, +S1, +S2 - GI/Abdominal Exam GI & Abdominal Exam: Soft. absent: Distended, Guarding, Organomegaly - Extremities Exam Extremities exam: Positive for: normal capillary refill. Negative for: pedal edema, tenderness - Neurological Exam Neurological exam: Alert, CN II-XII Intact, Oriented x3 Additional comments: Positive left sided mathias's sign, slight tremor noted. No clonus noted, normal brachiradialis reflexes bilaterally Results - Vital Signs Recent Vital Signs: Last Vital Signs Temp 100.6 F H 06/24/18 17:54 Pulse 71 06/24/18 17:54 Resp 18 06/24/18 17:54 BP 137/90 06/24/18 17:54 Pulse Ox 95 06/24/18 17:54 - Labs Result Diagrams: 06/24/18 12:30 06/24/18 12:46 Labs: Laboratory Results - last 24 hr 06/24/18 06/24/18 06/24/18 12:30 12:30 12:30 WBC 9.2 RBC 3.96 Hgb 10.0 L Hct 30.6 L MCV 77.3 L MCH 25.2 L MCHC 32.6 L RDW 15.9 H Plt Count 211 MPV 8.0 Neut % (Auto) 71.9 Lymph % (Auto) 16.8 L [place] % (Auto) 10.3 H Eos % (Auto) 0.5 Baso % (Auto) 0.5 Neut # (Auto) 6.6 Lymph # (Auto) 1.6 [place] # (Auto) 1.0 H Eos # (Auto) 0.0 Baso # (Auto) 0.0 Sodium Potassium Chloride Carbon Dioxide Anion Gap BUN Creatinine Est GFR ( Amer) Est GFR (Non-Af Amer) POC Glucose (mg/dL) Random Glucose Calcium Total Bilirubin AST ALT Alkaline Phosphatase Total Creatine Kinase Total Protein Albumin Globulin Albumin/Globulin Ratio Urine Color Yellow Urine Clarity Clear Urine pH 5.0 Ur Specific [place] 1.011 Urine Protein 1+ H Urine Glucose (UA) Normal Urine Ketones Negative Urine Blood Negative Urine Nitrate Negative Urine Bilirubin Negative Urine Urobilinogen Normal Ur Leukocyte Esterase Neg Urine WBC (Auto) 1 Urine RBC (Auto) < 1 Ur Squamous Epith Cells < 1 Urine Opiates Screen Negative Urine Methadone Screen Negative Ur Barbiturates Screen Negative Ur Phencyclidine Scrn Negative Ur Amphetamines Screen Negative U Benzodiazepines Scrn Negative U Oth Cocaine Metabols Negative U Cannabinoids Screen Negative 06/24/18 06/24/18 12:46 12:46 WBC RBC Hgb Hct MCV MCH MCHC RDW Plt Count MPV Neut % (Auto) Lymph % (Auto) [place] % (Auto) Eos % (Auto) Baso % (Auto) Neut # (Auto) Lymph # (Auto) [place] # (Auto) Eos # (Auto) Baso # (Auto) Sodium 139 Potassium 3.6 Chloride 104 Carbon Dioxide 25 Anion Gap 13 BUN 26 H Creatinine 1.4 H Est GFR ( Amer) 44 Est GFR (Non-Af Amer) 37 POC Glucose (mg/dL) 93 Random Glucose 91 Calcium 8.8 Total Bilirubin 0.4 AST 28 ALT 32 Alkaline Phosphatase 57 Total Creatine Kinase 323 H Total Protein 5.7 L Albumin 3.5 Globulin 2.2 Albumin/Globulin Ratio 1.6 Urine Color Urine Clarity Urine pH Ur Specific [place] Urine Protein Urine Glucose (UA) Urine Ketones Urine Blood Urine Nitrate Urine Bilirubin Urine Urobilinogen Ur Leukocyte Esterase Urine WBC (Auto) Urine RBC (Auto) Ur Squamous Epith Cells Urine Opiates Screen Urine Methadone Screen Ur Barbiturates Screen Ur Phencyclidine Scrn Ur Amphetamines Screen U Benzodiazepines Scrn U Oth Cocaine Metabols U Cannabinoids Screen - Imaging and Cardiology CT scan - head Status: Image reviewed by me, Report reviewed by me (As per radiology - no acute intracranial abnormalities, no interval change from prior CT) Chest x-ray Status: Report reviewed by me (no active disease) Assessment & Plan - Assessment and Plan (Free Text) Assessment: 72yo female status post 2nd episode of seizure (previous march 2018) admitted to telemetry for seizure assessment. Plan: Recurrent Seizure -Patient admitted to Telemetry -Neurology consulted : Dr Rahman -CT head: Neg -seizure precautions -Follow BMP -add magnesium -Keppra 500mg -fall risk precautions History of Renal Transplant -Nepthrology consulted : Kike -Follow BUN/Cr -Prednisone 5mg -Cyclosporine 25mg TID -Cellcept 75mg BID -Bactrim UTI prophylaxis 1 tab daily HTN -HCTZ 12.5mg q72hrs -Norvasc 5mg daily -Toprol 50mg BID Aortic Stenosis -follow up outpt HLD -Lovaza 0.001mg DVT prophylaxis -Heparin sub q
[2018-06-24] MEDS: Metoprolol Succinate 50 mg XL Tab PO SCH (18:40)
[2018-06-24] MEDS: Omega-3-Acid Ethyl Esters 1 GM Cap PO SCH (18:40)
[2018-06-24 22:53] LABS: PROLACTIN 13.2 ng/mL (3.0-18.9)
[2018-06-25 01:06] VITALS: RESP 20
--- NOTE | 2018-06-25 07:14 | CP.PCM.CON ---
History of Present Illness - History of Present Illness History of Present Illness: CONSULT DICTATED RECURRENT SEIZURES TO BE ON AED AND DOSE TO BE ON THERAPEUTIC DOSE AGREE KEPPRA ON 750 MG BID MRI/EEG SEIZURE PRECAUTION IF STABLE 24 HRS D/C AND FOLLOW UP OP Past Patient History - Infectious Disease Hx of Infectious Diseases: None - Tetanus Immunizations Tetanus Immunization: Unknown - Past Medical History & Family History Past Medical History?: Yes - Past Social History Smoking Status: Former Smoker Alcohol: None Drugs: Denies Home Situation {Lives}: With Family - CARDIAC Hx Hypercholesterolemia: Yes Hx Hypertension: Yes - PULMONARY Hx Respiratory Disorders: No - NEUROLOGICAL Hx Seizures: Yes (March 2018) - HEENT Hx Cataracts: Yes - RENAL Hx Chronic Kidney Disease: Yes Other/Comment: Renal Transplant - ENDOCRINE/METABOLIC Hx Endocrine Disorders: No - MUSCULOSKELETAL/RHEUMATOLOGICAL Hx Falls: Yes - GASTROINTESTINAL Hx Gastrointestinal Disorders: No - PSYCHIATRIC Hx Substance Use: No - SURGICAL HISTORY Hx Surgeries: Yes Other/Comment: Rt. kidney transplant . L AVF - ANESTHESIA Hx Anesthesia: Yes Hx Anesthesia Reactions: No Hx Malignant Hyperthermia: No Meds Allergies/Adverse Reactions: Allergies Allergy/AdvReac Type Severity Reaction Status Date / Time amoxicillin AdvReac Severe Verified 06/24/18 10:46 - Medications Medications: Current Medications Acetaminophen (Tylenol 325mg Tab) 650 mg PO Q6 PRN PRN Reason: Pain, moderate (4-7) Last Admin: 06/24/18 18:15 Dose: 650 mg Amlodipine Besylate (Norvasc) 5 mg PO DAILY [facility] Docusate Sodium (Colace) 100 mg PO BID [facility] Last Admin: 06/24/18 18:40 Dose: 100 mg Heparin Sodium (Porcine) (Heparin) 5,000 units SC Q12 [facility] Last Admin: 06/24/18 22:41 Dose: 5,000 units Hydrochlorothiazide (Microzide) 12.5 mg PO Q72 [facility] Levetiracetam (Keppra) 750 mg PO BID [facility] Metoprolol Succinate (Toprol Xl) 50 mg PO BID [facility] Last Admin: 06/24/18 18:40 Dose: 50 mg Mycophenolate Mofetil (Cellcept) 500 mg PO BID [facility] Last Admin: 06/24/18 18:40 Dose: 500 mg [id number] Ethyl Esters (Lovaza) 0.001 gm PO BID [facility] Last Admin: 06/24/18 18:40 Dose: 0.001 gm Prednisone (Prednisone Tab) 5 mg PO DAILY [facility] Tramadol HCl (Ultram) 50 mg PO BID PRN PRN Reason: Pain Trimethoprim/Sulfamethoxazole (Bactrim Ss Tab) 1 tab PO DAILY [facility] PRN Reason: Protocol Results - Vital Signs Recent Vital Signs: Last Vital Signs Temp 98.6 F 06/25/18 05:12 Pulse 64 06/25/18 05:12 Resp 20 06/25/18 05:12 BP 149/71 06/25/18 05:12 Pulse Ox 96 06/25/18 00:39 - Labs Result Diagrams: 06/24/18 12:30 06/24/18 12:46 Labs: Laboratory Results - last 24 hr 06/24/18 06/24/18 06/24/18 12:30 12:30 12:30 WBC 9.2 RBC 3.96 Hgb 10.0 L Hct 30.6 L MCV 77.3 L MCH 25.2 L MCHC 32.6 L RDW 15.9 H Plt Count 211 MPV 8.0 Neut % (Auto) 71.9 Lymph % (Auto) 16.8 L [place] % (Auto) 10.3 H Eos % (Auto) 0.5 Baso % (Auto) 0.5 Neut # (Auto) 6.6 Lymph # (Auto) 1.6 [place] # (Auto) 1.0 H Eos # (Auto) 0.0 Baso # (Auto) 0.0 Sodium Potassium Chloride Carbon Dioxide Anion Gap BUN Creatinine Est GFR ( Amer) Est GFR (Non-Af Amer) POC Glucose (mg/dL) Random Glucose Calcium Phosphorus Magnesium Total Bilirubin AST ALT Alkaline Phosphatase Total Creatine Kinase Troponin I Total Protein Albumin Globulin Albumin/Globulin Ratio Prolactin Urine Color Yellow Urine Clarity Clear Urine pH 5.0 Ur Specific [place] 1.011 Urine Protein 1+ H Urine Glucose (UA) Normal Urine Ketones Negative Urine Blood Negative Urine Nitrate Negative Urine Bilirubin Negative Urine Urobilinogen Normal Ur Leukocyte Esterase Neg Urine WBC (Auto) 1 Urine RBC (Auto) < 1 Ur Squamous Epith Cells < 1 Urine Opiates Screen Negative Urine Methadone Screen Negative Ur Barbiturates Screen Negative Ur Phencyclidine Scrn Negative Ur Amphetamines Screen Negative U Benzodiazepines Scrn Negative U Oth Cocaine Metabols Negative U Cannabinoids Screen Negative 06/24/18 06/24/18 06/24/18 12:46 12:46 18:39 WBC RBC Hgb Hct MCV MCH MCHC RDW Plt Count MPV Neut % (Auto) Lymph % (Auto) [place] % (Auto) Eos % (Auto) Baso % (Auto) Neut # (Auto) Lymph # (Auto) [place] # (Auto) Eos # (Auto) Baso # (Auto) Sodium 139 Potassium 3.6 Chloride 104 Carbon Dioxide 25 Anion Gap 13 BUN 26 H Creatinine 1.4 H Est GFR ( Amer) 44 Est GFR (Non-Af Amer) 37 POC Glucose (mg/dL) 93 Random Glucose 91 Calcium 8.8 Phosphorus Magnesium Total Bilirubin 0.4 AST 28 ALT 32 Alkaline Phosphatase 57 Total Creatine Kinase 323 H Troponin I 0.0450 Total Protein 5.7 L Albumin 3.5 Globulin 2.2 Albumin/Globulin Ratio 1.6 Prolactin Urine Color Urine Clarity Urine pH Ur Specific [place] Urine Protein Urine Glucose (UA) Urine Ketones Urine Blood Urine Nitrate Urine Bilirubin Urine Urobilinogen Ur Leukocyte Esterase Urine WBC (Auto) Urine RBC (Auto) Ur Squamous Epith Cells Urine Opiates Screen Urine Methadone Screen Ur Barbiturates Screen Ur Phencyclidine Scrn Ur Amphetamines Screen U Benzodiazepines Scrn U Oth Cocaine Metabols U Cannabinoids Screen 06/24/18 18:39 WBC RBC Hgb Hct MCV MCH MCHC RDW Plt Count MPV Neut % (Auto) Lymph % (Auto) [place] % (Auto) Eos % (Auto) Baso % (Auto) Neut # (Auto) Lymph # (Auto) [place] # (Auto) Eos # (Auto) Baso # (Auto) Sodium Potassium Chloride Carbon Dioxide Anion Gap BUN Creatinine Est GFR ( Amer) Est GFR (Non-Af Amer) POC Glucose (mg/dL) Random Glucose Calcium Phosphorus 3.3 Magnesium 2.0 Total Bilirubin AST ALT Alkaline Phosphatase Total Creatine Kinase Troponin I Total Protein Albumin Globulin Albumin/Globulin Ratio Prolactin 13.2 Urine Color Urine Clarity Urine pH Ur Specific [place] Urine Protein Urine Glucose (UA) Urine Ketones Urine Blood Urine Nitrate Urine Bilirubin Urine Urobilinogen Ur Leukocyte Esterase Urine WBC (Auto) Urine RBC (Auto) Ur Squamous Epith Cells Urine Opiates Screen Urine Methadone Screen Ur Barbiturates Screen Ur Phencyclidine Scrn Ur Amphetamines Screen U Benzodiazepines Scrn U Oth Cocaine Metabols U Cannabinoids Screen
[2018-06-25 08:22] LABS: MEAN CORPUSCULAR HEMOGLOBIN 25.6 pg (27.0-31.0); MEAN CORPUSCULAR HGB CONC 33.3 g/dL (33.0-37.0); MEAN PLATELET VOLUME 7.4 fL (7.2-11.7); RBC 3.9 Mil/uL (3.80-5.20); RED CELL DISTRIBUTION WIDTH 15.9 % (11.5-14.5); WHITE BLOOD COUNT 5.2 K/uL (4.8-10.8)
[2018-06-25 08:39] LABS: ALB/GLOB RATIO 1.5 (1.0-2.1); ALBUMIN 3.4 g/dL (3.5-5.0); CALCIUM 9.1 mg/dl (8.6-10.4)
--- NOTE | 2018-06-25 10:17 | CP.PCM.CON ---
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 Admitetd after a seizure episode at home, prior hx of seizures w/ poor follow up. . She denies any chest pain, N/V, SOB, dizziness or lightheadedness. Denies loss of vision. Good urine output, no dysuria or hematuria PMH as stated above PSH Renal transplant 2002. Lumbar spine laminectomy unsure of year Medications: Metoprolol 50mg PO BID, Norvasc 5mg PO QHS, Cellcept 500mg PO BID, Cyclosporine 75mg PO QAM and 50mg PO QHS, Prednisone 5mg PO QD, Bactrim DS 1 tab PO QD, Lovaza 1000mg 2 tabs PO QD, Tramadol 50mg PO BID Allergies: amoxicillin (swelling, dyspnea) Family history: son at age 45, history of Wiskott-Davidson syndrome Social history: light smoker 40+ years ago; rare alcohol drinker; denies drug use; lives with daughter Review of Systems - Review of Systems All systems: reviewed and no additional remarkable complaints except (10 point ROS negative except HPI) Past Patient History - Infectious Disease Hx of Infectious Diseases: None - Tetanus Immunizations Tetanus Immunization: Unknown - Past Medical History & Family History Past Medical History?: Yes - Past Social History Smoking Status: Former Smoker Alcohol: None Drugs: Denies Home Situation {Lives}: With Family - CARDIAC Hx Hypercholesterolemia: Yes Hx Hypertension: Yes - PULMONARY Hx Respiratory Disorders: No - NEUROLOGICAL Hx Seizures: Yes (March 2018) - HEENT Hx Cataracts: Yes - RENAL Hx Chronic Kidney Disease: Yes Other/Comment: Renal Transplant - ENDOCRINE/METABOLIC Hx Endocrine Disorders: No - MUSCULOSKELETAL/RHEUMATOLOGICAL Hx Falls: Yes - GASTROINTESTINAL Hx Gastrointestinal Disorders: No - PSYCHIATRIC Hx Substance Use: No - SURGICAL HISTORY Hx Surgeries: Yes Other/Comment: Rt. kidney transplant . L AVF - ANESTHESIA Hx Anesthesia: Yes Hx Anesthesia Reactions: No Hx Malignant Hyperthermia: No Meds Allergies/Adverse Reactions: Allergies Allergy/AdvReac Type Severity Reaction Status Date / Time amoxicillin AdvReac Severe Verified 06/24/18 10:46 - Medications Medications: Current Medications Acetaminophen (Tylenol 325mg Tab) 650 mg PO Q6 PRN PRN Reason: Pain, moderate (4-7) Last Admin: 06/24/18 18:15 Dose: 650 mg Amlodipine Besylate (Norvasc) 5 mg PO DAILY [facility] Docusate Sodium (Colace) 100 mg PO BID [facility] Last Admin: 06/24/18 18:40 Dose: 100 mg Heparin Sodium (Porcine) (Heparin) 5,000 units SC Q12 [facility] Last Admin: 06/24/18 22:41 Dose: 5,000 units Hydrochlorothiazide (Microzide) 12.5 mg PO Q72 [facility] Levetiracetam (Keppra) 750 mg PO BID [facility] Metoprolol Succinate (Toprol Xl) 50 mg PO BID [facility] Last Admin: 06/24/18 18:40 Dose: 50 mg Mycophenolate Mofetil (Cellcept) 500 mg PO BID [facility] Last Admin: 06/24/18 18:40 Dose: 500 mg [id number] Ethyl Esters (Lovaza) 0.001 gm PO BID [facility] Last Admin: 06/24/18 18:40 Dose: 0.001 gm Prednisone (Prednisone Tab) 5 mg PO DAILY [facility] Tramadol HCl (Ultram) 50 mg PO BID PRN PRN Reason: Pain Trimethoprim/Sulfamethoxazole (Bactrim Ss Tab) 1 tab PO DAILY [facility] PRN Reason: Protocol Physical Exam - Constitutional Appears: Non-toxic, No Acute Distress, Chronically Ill - Head Exam Head Exam: NORMAL INSPECTION, NORMOCEPHALIC - Eye Exam Eye Exam: Normal appearance, PERRL - ENT Exam ENT Exam: Mucous Membranes Moist, Normal Exam - Neck Exam Neck exam: Positive for: Normal Inspection - Respiratory Exam Respiratory Exam: Clear to Auscultation Bilateral, NORMAL BREATHING PATTERN - Cardiovascular Exam Cardiovascular Exam: REGULAR RHYTHM, RRR - GI/Abdominal Exam GI & Abdominal Exam: Normal Bowel Sounds, Soft (no tenderness over transplant kidney) - Extremities Exam Extremities exam: Positive for: normal inspection - Back Exam Back exam: NORMAL INSPECTION - Neurological Exam Neurological exam: Alert, Oriented x3 - Psychiatric Exam Psychiatric exam: Normal Affect, Normal Mood - Skin Skin Exam: Dry, Intact Results - Vital Signs Recent Vital Signs: Last Vital Signs Temp 98.6 F 06/25/18 05:12 Pulse 64 06/25/18 05:12 Resp 20 06/25/18 05:12 BP 149/71 06/25/18 05:12 Pulse Ox 96 06/25/18 00:39 - Labs Result Diagrams: 06/25/18 08:17 06/25/18 08:17 Labs: Laboratory Results - last 24 hr 06/24/18 06/24/18 06/24/18 12:30 12:30 12:30 WBC 9.2 RBC 3.96 Hgb 10.0 L Hct 30.6 L MCV 77.3 L MCH 25.2 L MCHC 32.6 L RDW 15.9 H Plt Count 211 MPV 8.0 Neut % (Auto) 71.9 Lymph % (Auto) 16.8 L [place] % (Auto) 10.3 H Eos % (Auto) 0.5 Baso % (Auto) 0.5 Neut # (Auto) 6.6 Lymph # (Auto) 1.6 [place] # (Auto) 1.0 H Eos # (Auto) 0.0 Baso # (Auto) 0.0 Sodium Potassium Chloride Carbon Dioxide Anion Gap BUN Creatinine Est GFR ( Amer) Est GFR (Non-Af Amer) POC Glucose (mg/dL) Random Glucose Calcium Phosphorus Magnesium Total Bilirubin AST ALT Alkaline Phosphatase Total Creatine Kinase Troponin I Total Protein Albumin Globulin Albumin/Globulin Ratio Prolactin Urine Color Yellow Urine Clarity Clear Urine pH 5.0 Ur Specific [place] 1.011 Urine Protein 1+ H Urine Glucose (UA) Normal Urine Ketones Negative Urine Blood Negative Urine Nitrate Negative Urine Bilirubin Negative Urine Urobilinogen Normal Ur Leukocyte Esterase Neg Urine WBC (Auto) 1 Urine RBC (Auto) < 1 Ur Squamous Epith Cells < 1 Urine Opiates Screen Negative Urine Methadone Screen Negative Ur Barbiturates Screen Negative Ur Phencyclidine Scrn Negative Ur Amphetamines Screen Negative U Benzodiazepines Scrn Negative U Oth Cocaine Metabols Negative U Cannabinoids Screen Negative 06/24/18 06/24/18 06/24/18 12:46 12:46 18:39 WBC RBC Hgb Hct MCV MCH MCHC RDW Plt Count MPV Neut % (Auto) Lymph % (Auto) [place] % (Auto) Eos % (Auto) Baso % (Auto) Neut # (Auto) Lymph # (Auto) [place] # (Auto) Eos # (Auto) Baso # (Auto) Sodium 139 Potassium 3.6 Chloride 104 Carbon Dioxide 25 Anion Gap 13 BUN 26 H Creatinine 1.4 H Est GFR ( Amer) 44 Est GFR (Non-Af Amer) 37 POC Glucose (mg/dL) 93 Random Glucose 91 Calcium 8.8 Phosphorus Magnesium Total Bilirubin 0.4 AST 28 ALT 32 Alkaline Phosphatase 57 Total Creatine Kinase 323 H Troponin I 0.0450 Total Protein 5.7 L Albumin 3.5 Globulin 2.2 Albumin/Globulin Ratio 1.6 Prolactin Urine Color Urine Clarity Urine pH Ur Specific [place] Urine Protein Urine Glucose (UA) Urine Ketones Urine Blood Urine Nitrate Urine Bilirubin Urine Urobilinogen Ur Leukocyte Esterase Urine WBC (Auto) Urine RBC (Auto) Ur Squamous Epith Cells Urine Opiates Screen Urine Methadone Screen Ur Barbiturates Screen Ur Phencyclidine Scrn Ur Amphetamines Screen U Benzodiazepines Scrn U Oth Cocaine Metabols U Cannabinoids Screen 06/24/18 06/25/18 06/25/18 18:39 08:17 08:17 WBC 5.2 RBC 3.90 Hgb 10.0 L Hct 30.0 L MCV 77.0 L MCH 25.6 L MCHC 33.3 RDW 15.9 H Plt Count 179 MPV 7.4 Neut % (Auto) Lymph % (Auto) [place] % (Auto) Eos % (Auto) Baso % (Auto) Neut # (Auto) Lymph # (Auto) [place] # (Auto) Eos # (Auto) Baso # (Auto) Sodium 142 Potassium 3.7 Chloride 106 Carbon Dioxide 25 Anion Gap 13 BUN 20 H Creatinine 1.3 H Est GFR ( Amer) 48 Est GFR (Non-Af Amer) 40 POC Glucose (mg/dL) Random Glucose 93 Calcium 9.1 Phosphorus 3.3 3.8 Magnesium 2.0 2.1 Total Bilirubin 0.6 AST 32 ALT 31 Alkaline Phosphatase 57 Total Creatine Kinase Troponin I Total Protein 5.6 L Albumin 3.4 L Globulin 2.2 Albumin/Globulin Ratio 1.5 Prolactin 13.2 Urine Color Urine Clarity Urine pH Ur Specific [place] Urine Protein Urine Glucose (UA) Urine Ketones Urine Blood Urine Nitrate Urine Bilirubin Urine Urobilinogen Ur Leukocyte Esterase Urine WBC (Auto) Urine RBC (Auto) Ur Squamous Epith Cells Urine Opiates Screen Urine Methadone Screen Ur Barbiturates Screen Ur Phencyclidine Scrn Ur Amphetamines Screen U Benzodiazepines Scrn U Oth Cocaine Metabols U Cannabinoids Screen Assessment & Plan (1) Seizure Status: Acute (2) Anemia Status: Acute Priority: High (3) CKD (chronic kidney disease) stage 3, GFR 30-59 ml/min Status: Acute (4) HLD (hyperlipidemia) Status: Acute (5) History of kidney transplant Status: Acute - Assessment and Plan (Free Text) Assessment: stable renal function encourage po fluids maintain home meds bp acceptable seizure management per neurology monitor cyclosporine levels if remains inpatient
[2018-06-25] MEDS: Omega-3-Acid Ethyl Esters 1 GM Cap PO SCH ×2 (10:45→17:47)
[2018-06-25] MEDS: Metoprolol Succinate 50 mg XL Tab PO SCH ×2 (10:45→17:47)
[2018-06-25] MEDS: Tmp-Smz 400 mg-80 mg SS Tab PO SCH (10:46)
[2018-06-25] MEDS: CYCLOSPORINE, MODIFIED 25 MG CAP PO SCH (11:46)
--- NOTE | 2018-06-25 14:23 | CARD ---
APPROVED REPORT Date of service: 06/24/2018 EKG Measurement Heart [id number] <Conclusion> Normal sinus rhythm Right bundle branch block Abnormal ECG
--- NOTE | 2018-06-25 15:52 | CON ---
Copied To: Herb Rahman MD Attending MD: Herb Rahman MD DATE: 06/25/2018 ATTENDING PHYSICIAN: Manuel Payne MD The patient is in room #665, bed B. REASON FOR THE CONSULTATION: Seizures. CHIEF COMPLAINT: The patient was brought into [facility] with a history of witnessed seizure activities at home. From neurological point of view, I was called in to evaluate her for further management. HISTORY OF PRESENT ILLNESS: Ms. Joey Kong is a 72-year-old moderately obese right-handed female brought into [facility] with history of witnessed seizure activities in front of her daughter, which lasted for about few minutes and post-event confusion, not associating with bowel and bladder incontinence; however, bitten tongue was documented. History of admission in [facility] on 04/09/2018 with history of similar episode, that time was the first episode. After the workup, the patient was not started on antiepileptic medication. Three months prior to that, she had one fall with no reason and no recollection why she did fall. These are all from the previous examination during her last admission. PAST MEDICAL HISTORY: She is hypertensive, chronic renal failure, status post renal transplantation from 2002, been on CellCept and cyclosporin for more than 15 years. She is also taking prednisone and Bactrim for prophylaxis. Has been on tramadol. PERSONAL HISTORY: Denies smoking or alcohol use. ALLERGIES: NO KNOWN ALLERGIES. REVIEW OF SYSTEMS: 12-point systems being reviewed. From neuro, seizures. MEDICATIONS: Toprol, Microzide, Ultram, Norvasc, Bactrim, CellCept, Toprol, Colace, Tylenol. PHYSICAL EXAMINATION: VITAL SIGNS: Blood pressure 149/71, mean arterial pressure of 97, respiratory rate 18, pulse rate 64, temperature 98.6. NECK: Supple. No carotid bruits. HEART: Heart sounds regular. CHEST: Fair air entry. EXTREMITIES: No edema in legs. NEUROLOGIC EXAMINATION: Mental status examination: She is awake, alert, oriented to person, place, and time. Significant retrograde amnesia. No antegrade amnesia. No confusion. No hallucination. No suicidal ideation. No sign of depression. Cranial nerve examination: Visual field intact. Pupils reactive to light. Extraocular movement normal. No nystagmus. No facial sensory deficit. No facial asymmetry. Hearing is normal. Tongue is midline. Good gag. Motor examination: Outstretched hand with eyes closed, no drift noted. Power is symmetric on either side. Deep tendon reflexes absent throughout. Plantars are mute. 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 Position sense is intact. Coordination: [id number] test is intact. WORKUP: CT of the head reviewed, which is also reported as negative for acute pathology. EKG normal sinus rhythm. Blood Workup: WBC 9.2, hemoglobin 10, hematocrit 30.6, platelet 211,000. Sodium 139, potassium 3.6, chloride 104, bicarbonate 25, BUN 26, creatinine 1.4, magnesium 2, phosphorus 3.3, calcium 8.8. CK 323, total protein 5.7. Urine shows 1+ proteinuria. Drug tox screen negative. CONCLUSION: Ms. Joey Kong, as per neurological examination, presenting with mildly distal sensory motor neuropathy. No long tract sign as seen or observed at present. From her history and previous admission, as these are recurrent seizures, the patient should be on antiepileptic drugs, and workup should be completed including MRI of the brain and electroencephalogram. The patient's daughter states that she had spinal implant of titanium from her previous surgery. If she has a titanium stent, she could go for MRI of the brain; however, that has to be confirmed from previous documents. RECOMMENDATIONS: Continue hydration. Keppra should be continued. dosage can be increased to 750 mg to keep the dose twice a day. We will review the electroencephalogram as above. If the patient is stable for the next 24-hour period, the patient can be discharged and should follow up with me as outpatient. Herb Rahman MD
--- NOTE | 2018-06-25 18:05 | CP.PCM.PN ---
<Jaci Sandhu - Last Filed: 06/25/18 18:33> Subjective - Date & Time of Evaluation Date of Evaluation: 06/25/18 Time of Evaluation: 10:30 - Subjective Subjective: PGY-1 Medicine Progress Note for Dr. Payne's service Patient seen and examined at bedside. Patient offers no acute complaints. Patient has implanted stimulator device in spine s/p 2 x laminectomy (2008, 2010 ) which is why she did not have MRI today. Patient denies confusion, lethargy, chest pain, sob, n/v, constipation or diarrhea, and headaches. Objective - Vital Signs/Intake and Output Vital Signs (last 24 hours): Temp Pulse Resp BP Pulse Ox 98.1 F 72 20 135/62 97 06/25/18 15:07 06/25/18 16:00 06/25/18 15:07 06/25/18 15:07 06/25/18 15:07 Intake and Output: 06/25/18 06/25/18 06:59 18:59 Intake Total 150 Balance 150 - Medications Medications: Current Medications Acetaminophen (Tylenol 325mg Tab) 650 mg PO Q6 PRN PRN Reason: Pain, moderate (4-7) Last Admin: 06/24/18 18:15 Dose: 650 mg Amlodipine Besylate (Norvasc) 5 mg PO DAILY [facility] Last Admin: 06/25/18 10:45 Dose: 5 mg Cyclosporine (Cyclosporine) 75 mg PO DAILY@0800 [facility] Last Admin: 06/25/18 11:46 Dose: 75 mg Cyclosporine (Cyclosporine) 50 mg PO DAILY@2000 [facility] Docusate Sodium (Colace) 100 mg PO BID [facility] Last Admin: 06/25/18 17:46 Dose: 100 mg Heparin Sodium (Porcine) (Heparin) 5,000 units SC Q12 [facility] Last Admin: 06/25/18 11:03 Dose: Not Given Hydrochlorothiazide (Microzide) 12.5 mg PO Q72 [facility] Levetiracetam (Keppra) 750 mg PO BID [facility] Last Admin: 06/25/18 17:47 Dose: 750 mg Metoprolol Succinate (Toprol Xl) 50 mg PO BID [facility] Last Admin: 06/25/18 17:47 Dose: 50 mg Mycophenolate Mofetil (Cellcept) 500 mg PO BID [facility] Last Admin: 06/25/18 17:46 Dose: 500 mg Gsgpr-6-[id number] Ethyl Esters (Lovaza) 0.001 gm PO BID [facility] Last Admin: 06/25/18 17:47 Dose: 0.001 gm Prednisone (Prednisone Tab) 5 mg PO DAILY [facility] Last Admin: 06/25/18 10:46 Dose: 5 mg Tramadol HCl (Ultram) 50 mg PO BID PRN PRN Reason: Pain Trimethoprim/Sulfamethoxazole (Bactrim Ss Tab) 1 tab PO DAILY [facility] PRN Reason: Protocol Last Admin: 06/25/18 10:46 Dose: 1 tab - Labs Labs: 06/25/18 08:17 06/25/18 08:17 - Constitutional Appears: Well, No Acute Distress - Head Exam Head Exam: ATRAUMATIC, NORMAL INSPECTION, NORMOCEPHALIC - Eye Exam Eye Exam: Normal appearance. absent: Nystagmus, Scleral icterus - ENT Exam ENT Exam: Mucous Membranes Moist, Normal Exam - Neck Exam Neck Exam: Full ROM, Normal Inspection. absent: Tenderness - Respiratory Exam Respiratory Exam: Clear to Ausculation Bilateral. absent: Rales, Wheezes - Cardiovascular Exam Cardiovascular Exam: REGULAR RHYTHM, +S1, +S2 - GI/Abdominal Exam GI & Abdominal Exam: Soft, Normal Bowel Sounds. absent: Distended, Tenderness - Extremities Exam Extremities Exam: Normal Inspection. absent: Pedal Edema - Neurological Exam Neurological Exam: Alert, Awake, Oriented x3. absent: Motor Sensory Deficit Neuro motor strength exam: Left Upper Extremity: 5, Right Upper Extremity: 5, Left Lower Extremity: 5, Right Lower Extremity: 5 - Psychiatric Exam Psychiatric exam: Anxious - Skin Skin Exam: Normal Color, Warm Assessment and Plan - Assessment and Plan (Free Text) Assessment: Patient is a 72 y.o with PMH seizure x 1 (march 2018) complicated with UTI, HLD, HTN, ESRD secondary to HTN status post right kidney transplant presenting for evaluation of seizure-like activity. Plan: Seizure Disorder Continue therapeutic dose Keppra [address] Rahman Consulted-recommnedations appreciated- patient has implanted spine device s/p laminectomies- MRI will be done outpatient with Dr. Rahman 06/24/[address]: no acute intracranial abnormalities; no significant findings to account for the clinical presentation. no signifcant interval change compared to prior examination Electrolytes stable Will monitor overnight Likely discharge tomorrow Hyperlipidemia Lovaza 0.001mg Hypertension Continue BP meds Metoprolol 50 mg po bid HCTZ 12.5 mg po q72h [facility] Amlodipine 5mg daily ESRD s/p Kidney transplant Stable Renal function Euvolemic on exam Cyclosporine 75mg po Cellcept 500 po bid daily prednisone 5mg daily Bactrim 1 tab po daily Monitor Cr/BUN Nephro following: Continue to followup with management Prophylaxis Heparin 5000 units subq q12 GI ppx not indicated at this time <Manuel Payne Jr. - Last Filed: 06/26/18 16:01> Objective - Vital Signs/Intake and Output Vital Signs (last 24 hours): Temp Pulse Resp BP Pulse Ox 98.5 F 70 20 122/70 95 06/26/18 15:09 06/26/18 15:09 06/26/18 15:09 06/26/18 15:09 06/26/18 15:09 Intake and Output: 06/26/18 06/26/18 06:59 18:59 Intake Total 360 Balance 360 - Medications Medications: Current Medications Acetaminophen (Tylenol 325mg Tab) 650 mg PO Q6 PRN PRN Reason: Pain, moderate (4-7) Last Admin: 06/24/18 18:15 Dose: 650 mg Amlodipine Besylate (Norvasc) 5 mg PO DAILY [facility] Last Admin: 06/26/18 10:26 Dose: 5 mg Cyclosporine (Cyclosporine) 75 mg PO DAILY@0800 [facility] Last Admin: 06/26/18 08:20 Dose: 75 mg Cyclosporine (Cyclosporine) 50 mg PO DAILY@2000 [facility] Last Admin: 06/25/18 19:38 Dose: 50 mg Docusate Sodium (Colace) 100 mg PO BID [facility] Last Admin: 06/26/18 10:26 Dose: 100 mg Heparin Sodium (Porcine) (Heparin) 5,000 units SC Q12 [facility] Last Admin: 06/25/18 21:29 Dose: Not Given Hydrochlorothiazide (Microzide) 12.5 mg PO Q72 [facility] Levetiracetam (Keppra) 750 mg PO BID [facility] Last Admin: 06/26/18 10:26 Dose: 750 mg Metoprolol Succinate (Toprol Xl) 50 mg PO BID [facility] Last Admin: 06/26/18 10:26 Dose: 50 mg Mycophenolate Mofetil (Cellcept) 500 mg PO BID [facility] Last Admin: 06/26/18 10:27 Dose: 500 mg Cfcoa-9-Suip Ethyl Esters (Lovaza) 0.001 gm PO BID [facility] Last Admin: 06/26/18 10:26 Dose: 0.001 gm Prednisone (Prednisone Tab) 5 mg PO DAILY [facility] Last Admin: 06/26/18 10:26 Dose: 5 mg Tramadol HCl (Ultram) 50 mg PO BID PRN PRN Reason: Pain - Labs Labs: 06/26/18 06:46 06/26/18 06:46 Attending/Attestation - Attestation I have personally seen and examined this patient.: Yes I have fully participated in the care of the patient.: Yes I have reviewed all pertinent clinical information, including history, physical exam and plan: Yes Notes (Text): 06/26/18 16:01 Patient seen and examined. Reviewed resident note and agree with findings. Discussed plan of care.
[2018-06-25] MEDS ORDERED: CYCLOSPORINE, MODIFIED 25 MG CAP PO SCH (20:00)
[2018-06-26 07:00] LABS: BASO % 0.3 % (0.0-2.0); EOS # 0.1 K/uL (0.0-0.7); HEMOGLOBIN 10.5 g/dL (11.0-16.0); LYMPH # 1.6 K/uL (1.0-4.3); LYMPH % 25.7 % (20.0-40.0); MEAN CELL VOLUME 77.5 fL (81.0-99.0); MEAN CORPUSCULAR HEMOGLOBIN 25.7 pg (27.0-31.0); MEAN CORPUSCULAR HGB CONC 33.2 g/dL (33.0-37.0); MEAN PLATELET VOLUME 7.5 fL (7.2-11.7); MONO # 0.8 K/uL (0.0-0.8); NEUT # 3.7 K/uL (1.8-7.0); NRBC % 0.1 % (0.0-2.0); RBC 4.07 Mil/uL (3.80-5.20); RED CELL DISTRIBUTION WIDTH 15.9 % (11.5-14.5); WHITE BLOOD COUNT 6.1 K/uL (4.8-10.8)
[2018-06-26 07:12] LABS: ALB/GLOB RATIO 1.5 (1.0-2.1); ALBUMIN 3.4 g/dL (3.5-5.0); CALCIUM 8.9 mg/dl (8.6-10.4)
[2018-06-26] MEDS: CYCLOSPORINE, MODIFIED 25 MG CAP PO SCH (08:20)
[2018-06-26] MEDS: Metoprolol Succinate 50 mg XL Tab PO SCH (10:26)
[2018-06-26] MEDS: Omega-3-Acid Ethyl Esters 1 GM Cap PO SCH (10:26)
[2018-06-26] MEDS: Tmp-Smz 400 mg-80 mg SS Tab PO SCH (10:27)
--- NOTE | 2018-06-26 12:57 | PN ---
Copied To: Herb Rahman MD Attending MD: Herb Rahman MD DATE: 06/26/2018 TIME OF EVALUATION: 07:10 a.m. NEUROLOGICAL PROBLEM: Recurrent seizures. PHYSICAL EXAMINATION: VITAL SIGNS: Blood pressure 143/71, mean arterial pressure of 95, respiratory rate 18, temperature afebrile. NECK: Supple. No carotid bruits. HEART: Sounds regular. CHEST: Fair entry. EXTREMITIES: No edema in legs. NEUROLOGICAL STATUS: The patient is arousable on calling her name, moves all four extremities as usual. Her current examination, which is unchanged compared with her previous examination. During the hospitalization, no seizures have been documented or witnessed. The patient is tolerating Keppra 750 mg twice a day. Her electroencephalogram being reviewed consistent with bilateral slow activities without any paroxysmal activities. We recommended MRI of the brain, is also pending because of her implant. Her information on implant being reviewed, which will be consulted with MRI department if possible. The patient will be getting MRI of the brain. Otherwise, if MRI is not possible, the patient can be discharged if medically stable. Herb Rahman MD
--- NOTE | 2018-06-26 13:26 | CP.PCM.PN ---
Subjective - Date & Time of Evaluation Date of Evaluation: 06/26/18 Time of Evaluation: 13:24 - Subjective Subjective: alert no more seizures renal function, HTN stable no new complaint Objective - Vital Signs/Intake and Output Vital Signs (last 24 hours): Temp Pulse Resp BP Pulse Ox 98.7 F 66 20 132/74 96 06/26/18 07:00 06/26/18 08:02 06/26/18 07:00 06/26/18 07:00 06/26/18 07:00 Intake and Output: 06/26/18 06/26/18 06:59 18:59 Intake Total 360 Balance 360 - Medications Medications: Current Medications Acetaminophen (Tylenol 325mg Tab) 650 mg PO Q6 PRN PRN Reason: Pain, moderate (4-7) Last Admin: 06/24/18 18:15 Dose: 650 mg Amlodipine Besylate (Norvasc) 5 mg PO DAILY [facility] Last Admin: 06/26/18 10:26 Dose: 5 mg Cyclosporine (Cyclosporine) 75 mg PO DAILY@0800 [facility] Last Admin: 06/26/18 08:20 Dose: 75 mg Cyclosporine (Cyclosporine) 50 mg PO DAILY@1999 [facility] Last Admin: 06/25/18 19:38 Dose: 50 mg Docusate Sodium (Colace) 100 mg PO BID [facility] Last Admin: 06/26/18 10:26 Dose: 100 mg Heparin Sodium (Porcine) (Heparin) 5,000 units SC Q12 [facility] Last Admin: 06/25/18 21:29 Dose: Not Given Hydrochlorothiazide (Microzide) 12.5 mg PO Q72 [facility] Levetiracetam (Keppra) 750 mg PO BID [facility] Last Admin: 06/26/18 10:26 Dose: 750 mg Metoprolol Succinate (Toprol Xl) 50 mg PO BID [facility] Last Admin: 06/26/18 10:26 Dose: 50 mg Mycophenolate Mofetil (Cellcept) 500 mg PO BID [facility] Last Admin: 06/26/18 10:27 Dose: 500 mg Eyxvm-1-Nunx Ethyl Esters (Lovaza) 0.001 gm PO BID [facility] Last Admin: 06/26/18 10:26 Dose: 0.001 gm Prednisone (Prednisone Tab) 5 mg PO DAILY [facility] Last Admin: 06/26/18 10:26 Dose: 5 mg Tramadol HCl (Ultram) 50 mg PO BID PRN PRN Reason: Pain - Labs Labs: 06/26/18 06:46 06/26/18 06:46 - Constitutional Appears: No Acute Distress, Chronically Ill - Head Exam Head Exam: ATRAUMATIC, NORMAL INSPECTION - Eye Exam Eye Exam: EOMI, Normal appearance - Neck Exam Neck Exam: Normal Inspection. absent: Tenderness - Respiratory Exam Respiratory Exam: Clear to Ausculation Bilateral, NORMAL BREATHING PATTERN - Cardiovascular Exam Cardiovascular Exam: REGULAR RHYTHM, +S1 - GI/Abdominal Exam GI & Abdominal Exam: Soft. absent: Tenderness - Extremities Exam Extremities Exam: Normal Inspection. absent: Tenderness - Neurological Exam Neurological Exam: Alert, CN II-XII Intact - Skin Skin Exam: Dry, Warm Assessment and Plan (1) History of kidney transplant Status: Acute (2) Seizure Status: Acute (3) CKD (chronic kidney disease) stage 3, GFR 30-59 ml/min Status: Acute (4) Syncope and collapse Status: Acute - Assessment and Plan (Free Text) Plan: seizure meds as per neuro check CSA level check iron stores/ chemistries
[2018-06-26 16:01] VITALS: BP 122/70; TEMP 98.5; O2SAT 95
--- NOTE | 2018-06-26 16:19 | CP.PCM.DIS ---
Provider - Provider Date of Admission: 06/24/18 13:22 Attending physician: Manuel Payne Jr, MD Primary care physician: Dr. Owen Consults: Dr. Rahman (neurology) Time Spent in preparation of Discharge (in minutes): 35 Diagnosis - Discharge Diagnosis (1) History of kidney transplant Status: Chronic (2) Seizure Status: Acute (3) Aortic stenosis Status: Chronic Hospital Course - Lab Results Lab Results: Most Recent Lab Values WBC 6.1 K/uL (4.8-10.8) 06/26/18 06:46 RBC 4.07 Mil/uL (3.80-5.20) 06/26/18 06:46 Hgb 10.5 g/dL (11.0-16.0) L 06/26/18 06:46 Hct 31.5 % (34.0-47.0) L 06/26/18 06:46 MCV 77.5 fL (81.0-99.0) L 06/26/18 06:46 MCH 25.7 pg (27.0-31.0) L 06/26/18 06:46 MCHC 33.2 g/dL (33.0-37.0) 06/26/18 06:46 RDW 15.9 % (11.5-14.5) H 06/26/18 06:46 Plt Count 198 K/uL (130-400) 06/26/18 06:46 MPV 7.5 fL (7.2-11.7) 06/26/18 06:46 Neut % (Auto) 60.0 % (50.0-75.0) 06/26/18 06:46 Lymph % (Auto) 25.7 % (20.0-40.0) 06/26/18 06:46 Granite % (Auto) 13.0 % (0.0-10.0) H 06/26/18 06:46 Eos % (Auto) 1.0 % (0.0-4.0) 06/26/18 06:46 Baso % (Auto) 0.3 % (0.0-2.0) 06/26/18 06:46 Neut # (Auto) 3.7 K/uL (1.8-7.0) 06/26/18 06:46 Lymph # (Auto) 1.6 K/uL (1.0-4.3) 06/26/18 06:46 Granite # (Auto) 0.8 K/uL (0.0-0.8) 06/26/18 06:46 Eos # (Auto) 0.1 K/uL (0.0-0.7) 06/26/18 06:46 Baso # (Auto) 0.0 K/uL (0.0-0.2) 06/26/18 06:46 Sodium 144 mmol/L (132-148) 06/26/18 06:46 Potassium 3.9 mmol/L (3.6-5.2) 06/26/18 06:46 Chloride 108 mmol/L (98-107) H 06/26/18 06:46 Carbon Dioxide 25 mmol/L (22-30) 06/26/18 06:46 Anion Gap 16 (10-20) 06/26/18 06:46 BUN 18 mg/dL (7-17) H 06/26/18 06:46 Creatinine 1.4 mg/dL (0.7-1.2) H 06/26/18 06:46 Est GFR ( Amer) 44 06/26/18 06:46 Est GFR (Non-Af Amer) 37 06/26/18 06:46 POC Glucose (mg/dL) 107 mg/dL (65-110) 06/26/18 11:35 Random Glucose 107 mg/dL (65-105) H 06/26/18 06:46 Calcium 8.9 mg/dl (8.6-10.4) 06/26/18 06:46 Ionized Calcium 5.0 mg/dL (4.80-5.60) 06/25/18 08:17 Phosphorus 3.7 mg/dL (2.5-4.5) 06/26/18 06:46 Magnesium 2.1 mg/dL (1.6-2.3) 06/26/18 06:46 Total Bilirubin 0.5 mg/dL (0.2-1.3) 06/26/18 06:46 AST 32 U/L (14-36) 06/26/18 06:46 ALT 29 U/L (9-52) 06/26/18 06:46 Alkaline Phosphatase 54 U/L (38-126) 06/26/18 06:46 Total Creatine Kinase 323 U/L (30-135) H 06/24/18 12:46 Troponin I 0.0450 ng/mL (0.00-0.120) 06/24/18 18:39 Total Protein 5.7 g/dL (6.3-8.3) L 06/26/18 06:46 Albumin 3.4 g/dL (3.5-5.0) L 06/26/18 06:46 Globulin 2.2 gm/dL (2.2-3.9) 06/26/18 06:46 Albumin/Globulin Ratio 1.5 (1.0-2.1) 06/26/18 06:46 Prolactin 13.2 ng/mL (3.0-18.9) 06/24/18 18:39 Urine Color Yellow (YELLOW) 06/24/18 12:30 Urine Clarity Clear (Clear) 06/24/18 12:30 Urine pH 5.0 (5.0-8.0) 06/24/18 12:30 Ur Specific [place] 1.011 (1.003-1.030) 06/24/18 12:30 Urine Protein 1+ mg/dL (NEGATIVE) H 06/24/18 12:30 Urine Glucose (UA) Normal mg/dL (Normal) 06/24/18 12:30 Urine Ketones Negative mg/dL (NEGATIVE) 06/24/18 12:30 Urine Blood Negative (NEGATIVE) 06/24/18 12:30 Urine Nitrate Negative (NEGATIVE) 06/24/18 12:30 Urine Bilirubin Negative (NEGATIVE) 06/24/18 12:30 Urine Urobilinogen Normal mg/dL (0.2-1.0) 06/24/18 12:30 Ur Leukocyte Esterase Neg Amlu/uL (Negative) 06/24/18 12:30 Urine WBC (Auto) 1 /hpf (0-5) 06/24/18 12:30 Urine RBC (Auto) < 1 /hpf (0-3) 06/24/18 12:30 Ur Squamous Epith Cells < 1 /hpf (0-5) 06/24/18 12:30 Urine Opiates Screen Negative (NEGATIVE) 06/24/18 12:30 Urine Methadone Screen Negative (NEGATIVE) 06/24/18 12:30 Ur Barbiturates Screen Negative (NEGATIVE) 06/24/18 12:30 Ur Phencyclidine Scrn Negative (NEGATIVE) 06/24/18 12:30 Ur Amphetamines Screen Negative (NEGATIVE) 06/24/18 12:30 U Benzodiazepines Scrn Negative (NEGATIVE) 06/24/18 12:30 U Oth Cocaine Metabols Negative (NEGATIVE) 06/24/18 12:30 U Cannabinoids Screen Negative (NEGATIVE) 06/24/18 12:30 - Hospital Course Hospital Course: PMH as stated above PSH Renal transplant 2002. Lumbar spine laminectomy unsure of year Medications: Metoprolol 50mg PO BID, Norvasc 5mg PO QHS, Cellcept 500mg PO BID, Cyclosporine 75mg PO QAM and 50mg PO QHS, Prednisone 5mg PO QD, Bactrim DS 1 tab PO QD, Lovaza 1000mg 2 tabs PO QD, Tramadol 50mg PO BID Allergies: amoxicillin (swelling, dyspnea) Family history: son at age 45, history of Wiskott-Jeremías syndrome Social history: light smoker 40+ years ago; rare alcohol drinker; denies drug use; lives with daughter PMD: Dr. Stokes On Admission: Pt is a 72yo female with a PMH of HLD, HTN, ESRD secondary to HTN status post renal trasnplant in 2002. Pt was hospitalized March 2018 for a seizure where she had 2 neg CTs and was instructed to follow up with neurology, with which she did not comply. Pt reports feeling weak and unbalanced this morning and had to be helped to the bathroom by her daughter. Afterwards, she was assisted to sit down in a chair where she sustained a 5 minute seizure according to the daughter. Daughter describes the seizure as constant shaking with tongue biting and cyanosis. She remained sitting down post-ictal for another 15 minutes. She was immediately brought to [facility] ED by ambulance. Pt does not recall the seizure but can remember events before and after. Pt denies loss of bowel control during her episode. Pt reports bilateral shoulder pain. She denies any chest pain, N/V, SOB, dizziness or lightheadedness. Denies loss of vision. Hospital Course: Patient was admitted for recurrent seizure. Patient had Head CT which showed no abnormalities. Patient was to get MRI in hospital however patient had implanted stimulator in sacral area. Patient is to get outpatient MRI after followup with neurologist. Patient is stable for discharge to home as per Dr. Payne. Patient is to followup with PMD Dr. Stokes within 1 week of discharge for post hospital care. Patient is to followup with Dr. Rahman (neurology) to setup outpatient MRI for head. Patient to call and make an appointment. Patient is to resume all of her home medications and in addition take the following new medication: Keppra 750mg by mouth twice day. Patient is to return to the ED if symptoms return. All instructions explained to patient and her daughter who agree with the plan above. *This is a summary of hospital course. Please refer to EMR for full admission details. Discharge Exam - Head Exam Head Exam: ATRAUMATIC, NORMAL INSPECTION - Eye Exam Eye Exam: EOMI, Normal appearance. absent: Nystagmus, Scleral icterus - ENT Exam ENT Exam: Mucous Membranes Moist, Normal Exam - Respiratory Exam Respiratory Exam: NORMAL BREATHING PATTERN. absent: Wheezes, Respiratory Distress - Cardiovascular Exam Cardiovascular Exam: REGULAR RHYTHM, +S1, +S2. absent: Systolic Murmur - GI/Abdominal Exam GI & Abdominal Exam: Normal Bowel Sounds, Soft. absent: Distended, Firm, Tenderness - Extremities Exam Extremities exam: normal inspection - Back Exam Back exam: NORMAL INSPECTION. absent: CVA tenderness (L), CVA tenderness (R) - Neurological Exam Neurological exam: Alert, CN II-XII Intact, Oriented x3 - Psychiatric Exam Psychiatric exam: Normal Affect, Normal Mood - Skin Skin Exam: Normal Color, Warm Discharge Plan - Discharge Medications Prescriptions: levETIRAcetam [Keppra] 750 mg PO BID #30 tab - Follow Up Plan Condition: IMPROVED Disposition: HOME/ ROUTINE Instructions: Heart Healthy Diet, Seizures, Adult (DC), Kidney Disease Diet ( For People Not on Dialysis), Levetiracetam Additional Instructions: Patient is stable for discharge to home as per Dr. Payne. Patient is to followup with PMD Dr. Stokes within 1 week of discharge for post hospital care. Patient is to followup with Dr. Rahman (neurology) to setup outpatient MRI for head. Patient to call and make an appointment. Patient is to resume all of her home medications and in addition take the following new medication: Keppra 750mg by mouth twice day. Patient is to return to the ED if symptoms return. All instructions explained to patient and her daughter who agree with the plan above. Referrals: Herb Rahman MD [Staff Provider] - Olivia Stokes MD [Staff Provider] -
[2018-06-26 16:41] VITALS: PULSE 75
== END 2018-06-26 18:04 | disposition home or self-care (01) ==
LOC: C.ER 10:35 → C.9E 13:22 → C.6T 22:54
PROVIDERS: ADMIT Internal Medicine; ATTEND Internal Medicine
DX: G40.909 Epilepsy, unspecified, not intractable, without status epilepticus (principal); E78.5 Hyperlipidemia, unspecified; G62.9 Polyneuropathy, unspecified; E66.9 Obesity, unspecified; I35.0 Nonrheumatic aortic (valve) stenosis; Z87.891 Personal history of nicotine dependence; Z94.0 Kidney transplant status
CPT/HCPCS: 36415; 70450; 71045; 80053; 80158; 81001; 82330; 82550; 82948; 83735; 84100; 84146; 84484; 85025; 85027; 93005; 95812; 96365; 96372; 99285; G0378; G0480; J1644; J1953; J7515; J7517

== ENCOUNTER 2018-12-05 02:44 | Emergency (ER) | payer MEDICARE, OTHER ==
[2018-12-05 02:44] VITALS: BMI 30.2
[2018-12-05] MEDS ORDERED: Morphine 4 MG/ML VIAL ONE (04:01)
[2018-12-05 04:09] LABS: BASO % 0.1 % (0.0-2.0); EOS % 0.2 % (0.0-4.0); HEMOGLOBIN 11.5 g/dL (11.0-16.0); LYMPH % 17.2 % (20.0-40.0); MEAN CELL VOLUME 78.2 fL (81.0-99.0); MEAN CORPUSCULAR HEMOGLOBIN 24.5 pg (27.0-31.0); MEAN CORPUSCULAR HGB CONC 31.3 g/dL (33.0-37.0); MEAN PLATELET VOLUME 7.8 fL (7.2-11.7); MONO # 0.8 K/uL (0.0-0.8); MONO % 7.3 % (0.0-10.0); NEUT # 8.6 K/uL (1.8-7.0); NEUT % 75.2 % (50.0-75.0); NRBC % 0.1 % (0.0-2.0); RBC 4.69 Mil/uL (3.80-5.20); RED CELL DISTRIBUTION WIDTH 16.6 % (11.5-14.5); WHITE BLOOD COUNT 11.4 K/uL (4.8-10.8)
[2018-12-05 04:20] LABS: ALB/GLOB RATIO 1.6 (1.0-2.1); ALBUMIN 4.2 g/dL (3.5-5.0); CALCIUM 9.2 mg/dl (8.6-10.4)
--- NOTE | 2018-12-05 05:02 | C.PDOC ---
History Of Present Illness 73 year old female presents to the ER with a complaint of LUQ pain since yesterday morning after eating breakfast. Patient was relieved briefly with bowel movement but pain recurred. As per relative, patient appeared restless and distended tonight. Denies nausea, vomiting, URI, UTI, constipation, or bloody stools. Time Seen by Provider: 12/05/18 03:33 Chief Complaint (Nursing): Abdominal Pain History Per: Patient History/Exam Limitations: no limitations Onset/Duration Of Symptoms: Days Current Symptoms Are (Timing): Still Present Location Of Pain/Discomfort: LUQ Radiation Of Pain To:: None Quality Of Discomfort: Unable To Describe Associated Symptoms: denies: Nausea, Vomiting, Constipation, Urinary Symptoms, Other (URI, bloody stool) Exacerbating Factors: None Alleviating Factors: None Recent travel outside of the [place]: No Past Medical History Reviewed: Historical Data, Nursing Documentation, Vital Signs Vital Signs: Last Vital Signs Temp 98.1 F 12/05/18 03:00 Pulse 61 12/05/18 03:00 Resp 20 12/05/18 03:00 BP 186/75 H 12/05/18 03:00 Pulse Ox 97 12/05/18 03:00 - Medical History PMH: HTN, Hypercholesterolemia, Chronic Kidney Disease, Seizures (March 2018) - [facility] Procedures MEASURE OF ARTERIAL PRESSURE, PERIPHERAL, SEASONAL DELIVERY DRIVER APPROACH (09/01/17) MEASUREMENT OF CARDIAC RHYTHM, EXTERNAL APPROACH (09/01/17) Family History: States: Unknown Family Hx - Social History Hx Alcohol Use: No Hx Substance Use: No - Immunization History Hx Tetanus Toxoid Vaccination: Yes Hx Influenza Vaccination: No Hx Pneumococcal Vaccination: Yes (also recvd TB) Review Of Systems Constitutional: Negative for: Fever, Chills ENT: Negative for: Nose Congestion Respiratory: Negative for: Cough Gastrointestinal: Positive for: Abdominal Pain. Negative for: Nausea, Vomiting Genitourinary: Negative for: Dysuria, Hematuria Physical Exam - Physical Exam Appears: Non-toxic Skin: Normal Color, Warm, Dry Head: Atraumatic, Normacephalic Eye(s): bilateral: Normal Inspection Oral Mucosa: Moist Chest: Symmetrical, No Tenderness Cardiovascular: Rhythm Regular Respiratory: Normal Breath Sounds, No Rales, No Rhonchi, No Wheezing Gastrointestinal/Abdominal: Bowel Sounds (Normal), Soft, Tenderness (LUQ), Distention, No Guarding, Rebound (LUQ) Back: No CVA Tenderness Neurological/Psych: Oriented x3, Normal Speech ED Course And Treatment - Laboratory Results Result Diagrams: 12/05/18 04:02 12/05/18 04:02 Lab Results: Total Bilirubin 0.5 mg/dL (0.2-1.3) 12/05/18 04:02 AST 24 U/L (14-36) 12/05/18 04:02 ALT 29 U/L (9-52) 12/05/18 04:02 Alkaline Phosphatase 56 U/L (38-126) 12/05/18 04:02 Total Protein 6.7 g/dL (6.3-8.3) 12/05/18 04:02 Albumin 4.2 g/dL (3.5-5.0) 12/05/18 04:02 Globulin 2.5 gm/dL (2.2-3.9) 12/05/18 04:02 Albumin/Globulin Ratio 1.6 (1.0-2.1) 12/05/18 04:02 Lipase 25 U/L (23-300) 12/05/18 04:02 O2 Sat by Pulse Oximetry: 97 (Room air) Pulse Ox Interpretation: Normal - Other Rad Obstructive Series X-Ray: Interpreted by Me, Viewed By Me Interpretation: nonspecific, ? SBO Progress Note: Blood work, obstructive series ordered, results showed possible small bowel obstruction, pending CT abd/pelvis. Morphine administered. On reevaluation, patient reports improvement of pain, she is resting comfortably in the ER in no acute distress, abdomen remains soft, nontender, vitals are stable. Patient and relative educated about CT results, advised to increased fiber in diet, and to follow up with PMD or return if symptoms worsen. Reevaluation Time: 06:12 Reassessment Condition: Improved Disposition - Disposition Disposition: HOME/ ROUTINE Disposition Time: 06:08 Condition: STABLE Additional Instructions: Please follow up with PMD tomorrow Take fiber/ stool softeners Have small meals at a time Return to ER if recurring severe pain, vomiting , fever or worse Instructions: Acute Abdomen (Belly Pain), Adult (DC) Forms: [employer] (Serbian) - Clinical Impression Clinical Impression: Abdominal pain, Ileus, unspecified, Gastroparesis - PA / SPINDLE SANDER / Resident Statement MD/DO has reviewed & agrees with the documentation as recorded. - Scribe Statement The provider has reviewed the documentation as recorded by the Scribe Taurus Landis All medical record entries made by the Donibcrispin were at my direction and personally dictated by me. I have reviewed the chart and agree that the record accurately reflects my personal performance of the history, physical exam, medical decision making, and the department course for this patient. I have also personally directed, reviewed, and agree with the discharge instructions and disposition.
[2018-12-05 06:09] VITALS: BP 138/65; PULSE 63; RESP 14; TEMP 98.3
[2018-12-05 06:10] VITALS: O2SAT 97
--- NOTE | 2018-12-05 09:32 | RAD ---
Date of service: 12/05/2018 PROCEDURE: Radiographs of the chest and abdomen (obstructive series) HISTORY: abd pain, left abdomen COMPARISON: No prior. TECHNIQUE: AP radiograph of the chest, with upright and supine radiographs of the abdomen. FINDINGS: CHEST: Lungs: Clear. Cardiovascular: Normal size heart. No pulmonary vascular congestion. No aortic atherosclerotic calcification present Pleura: No pleural fluid. No pneumothorax. Other findings: Spinal stimulator seen overlying the midthoracic spine. ABDOMEN AND PELVIS: Bowel: Multiple dilated small bowel loops. Air-fluid levels are seen at differential heights on the upright view. Suspicious for mechanical bowel obstruction. Correlate clinically. Free air: None. Bones: Status post lumbar fixation at multiple levels with pedicle screws and vertical rods. Other findings: None. IMPRESSION: Possible mechanical bowel obstruction. Follow-up advised. No pulmonary infiltrate. No free air.
--- NOTE | 2018-12-05 14:10 | CT ---
PROCEDURE: CT Abdomen and Pelvis without Oral or IV contrast. HISTORY: distended abdomen and pain COMPARISON: Obstructive series performed 12/05/18 TECHNIQUE: Contiguous axial images of the abdomen and pelvis. No oral or IV contrast administered. Coronal and Sagittal reformats generated and reviewed. Radiation dose: Total exam DLP = 913.57 mGy-cm. This CT exam was performed using one or more of the following dose reduction techniques: Automated exposure control, adjustment of the mA and/or kV according to patient size, and/or use of iterative reconstruction technique. FINDINGS: There is limited evaluation of the solid organs without the administration of IV contrast. LOWER THORAX: No visible consolidation, pleural effusion, or pneumothorax. Cardiomegaly. Dense coronary artery calcifications. Dense mitral annulus calcifications. Small hiatal hernia/distal esophageal wall thickening. LIVER: Heterogeneous low-density within the left hepatic lobe consistent with focal biliary ductal dilatation. GALLBLADDER AND BILE DUCTS: Unremarkable. PANCREAS: Diffuse fatty infiltration of the pancreas. Subtle inflammatory changes cannot be excluded. Recommend correlation with amylase and lipase in order to exclude possibility of acute pancreatitis. SPLEEN: Unremarkable. ADRENALS: Unremarkable. KIDNEYS AND URETERS: Atrophic bilateral [place] kidneys. 9 mm right renal hypodensity, too small to characterize. Right renal cyst. Nonobstructing left renal calculi. Right lower quadrant transplant kidney with 3 mm nonobstructing calculus. BLADDER: The urinary bladder appears unremarkable. REPRODUCTIVE: Uterus is present. APPENDIX: The appendix appears within normal limits of caliber. No secondary signs of acute appendicitis. BOWEL: The stomach is nondistended. Lack of oral contrast limits evaluation for bowel pathology. The bowel loops appear within normal limits of caliber without evidence of intestinal obstruction. Diverticulosis without CT evidence of acute diverticulitis. PERITONEUM: No significant free fluid. No definite free air. LYMPH NODES: No bulky lymphadenopathy identified. VASCULATURE: Atherosclerotic calcifications of the aorta and branches. No aortic aneurysm. BONES: Spinal stimulator with dorsal thoracic spine leads. Posterior lumbar fusion hardware. Scoliosis. OTHER FINDINGS: Left inguinal hernia containing fat and soft tissue presumed to represent the broad ligament. Large right lower abdominal bowel containing hernia without evidence of obstruction. IMPRESSION: Heterogeneous low-density within the left hepatic lobe consistent with focal biliary ductal dilatation. Etiology of this finding uncertain. Diffuse fatty infiltration of the pancreas. Subtle inflammatory changes cannot be excluded. Recommend correlation with amylase and lipase in order to exclude possibility of acute pancreatitis. Large right lower abdominal bowel containing hernia without evidence of obstruction. Left inguinal hernia containing fat and soft tissue presumed to represent a broad ligament. Additional findings as above. Preliminary impression was provided by [facility]. Study marked for PA review.
== END 2018-12-05 06:36 | disposition home or self-care (01) ==
LOC: C.ER 02:44
DX: K56.7 Ileus, unspecified (principal); K31.84 Gastroparesis; R10.12 Left upper quadrant pain
CPT/HCPCS: 74022; 74176; 80053; 83690; 85025; 96374; 99284; J2270

== ENCOUNTER 2018-12-19 12:01 | Outpatient (CLI) | payer MEDICARE, OTHER | END 2018-12-19 12:02 | disposition home or self-care (01) | LOC: C.LAB 12:01 | DX: Z48.22 Encounter for aftercare following kidney transplant (principal) ==

== ENCOUNTER 2019-01-08 12:24 | Outpatient (CLI) | payer MEDICARE, OTHER | END 2019-01-08 12:25 | disposition home or self-care (01) | LOC: C.RADH 12:24 | DX: R10.84 Generalized abdominal pain (principal) ==

== ENCOUNTER → 2019-03-04 | Outpatient (CLI) | payer MEDICARE, OTHER | END | disposition home or self-care (01) | LOC: C.LAB 10:35 | DX: N39.0 Urinary tract infection, site not specified (principal) ==

== ENCOUNTER 2019-03-13 11:19 | Outpatient (CLI) | payer MEDICARE, OTHER | END 2019-03-13 11:20 | disposition home or self-care (01) | LOC: C.LAB 11:19 | DX: Z48.22 Encounter for aftercare following kidney transplant (principal) ==

== ENCOUNTER 2019-03-21 13:12 | Outpatient (CLI) | payer MEDICARE, OTHER | END 2019-03-21 13:13 | disposition home or self-care (01) | LOC: C.LAB 13:12 | DX: Z48.22 Encounter for aftercare following kidney transplant (principal); R50.9 Fever, unspecified ==